=== PATIENT | female | born 1970 | race Caucasian/White ===

== ENCOUNTER → 2019-07-07 10:20 | Outpatient (BNVA) | payer MEDICAID, SELFPAY | PROVIDERS: Family Provider Internal Medicine; PCP Internal Medicine; Visit Provider Specialist | DX: G43.011 Migraine without aura, intractable, with status migrainosus (principal) | CPT/HCPCS: 99213 ==

== ENCOUNTER → 2019-07-24 11:06 | Outpatient (BNVA) | payer MEDICAID, SELFPAY | PROVIDERS: Family Provider Internal Medicine; PCP Internal Medicine; Visit Provider Nurse Practitioner | DX: F33.2 Major depressive disorder, recurrent severe without psychotic features (principal); F42.4 Excoriation (skin-picking) disorder | CPT/HCPCS: 99214 ==

== ENCOUNTER 2019-07-31 11:47 | Outpatient (CLI) | payer MEDICAID, SELFPAY ==
--- NOTE | 2019-07-31 11:55 | XR_ITS ---
WS: [id number] AP and lateral soft tissue view of the neck, 07/31/2019 Clinical Data: DYSPHAGIA, NECK PAIN Comparison: None. Findings: No radiopaque foreign bodies are seen. No prevertebral soft tissue swelling is noted. The epiglottis and pharynx appear to be normal. The thyroid cartilage and cricoid cartilage are normal. The lung api yash and AP soft tissue views of the neck are normal. XR/XR soft tissue neck [id number] Impression: Negative for radiopaque foreign body in the pharynx, trachea or proximal esopha tram.
== END 2019-07-31 11:48 | disposition home or self-care (01) ==
PROVIDERS: Family Provider Internal Medicine; PCP Internal Medicine; Visit Provider Nurse Practitioner Family
DX: M45.2 Ankylosing spondylitis of cervical region (principal); R13.10 Dysphagia, unspecified
CPT/HCPCS: 70360

== ENCOUNTER 2019-08-04 11:50 | Outpatient (CLI) | payer MEDICAID, SELFPAY | END 2019-08-04 11:51 | disposition home or self-care (01) | LOC: LAB 11:55 | PROVIDERS: Family Provider Internal Medicine; PCP Internal Medicine; Visit Provider Nurse Practitioner Primary Care | DX: Z76.89 Persons encountering health services in other specified circumstances (principal) ==

== ENCOUNTER 2019-08-18 14:10 | Outpatient (CLI) | payer MEDICAID, SELFPAY ==
--- NOTE | 2019-08-18 14:23 | XR_ITS ---
WS: [id number] RIGHT TIBIA-FIBULA 2 VIEWS HISTORY: PAIN, POSSIBLE FOREIGN BODY, STICK TO LEG INJURY COMPARISON: None available. No fracture, dislocation or joint abnormality. No radiopaque foreign body. XR/XR tibia fibula RT 2V [id number] IMPRESSION: Normal RIGHT tibia-fibula. No foreign body.
== END 2019-08-18 14:11 | disposition home or self-care (01) ==
LOC: RADWPI 14:13
PROVIDERS: Family Provider Internal Medicine; PCP Internal Medicine; Visit Provider Internal Medicine
DX: M79.661 Pain in right lower leg (principal)
CPT/HCPCS: 73590

== ENCOUNTER 2019-08-24 13:59 | Outpatient (CLI) | payer MEDICAID, SELFPAY ==
--- NOTE | 2019-08-24 14:15 | US_ITS ---
WS: [id number] Soft tissue ultrasound of both feet, 08/24/2019 Clinical Data: bilateral foot Comparison: None. Findings: Both feet were imaged to evaluate for possible Santiago's neuroma. Only normal subcutaneous tissue coul d be seen. There were no cysts or masses. No evidence of Santiago's neuroma was seen on either foot. US/US soft tissue/extremity [id number] Impression: Normal subcutaneous ultrasound of both feet with no evidence of Santiago's neurom a.
== END 2019-08-24 14:00 | disposition home or self-care (01) ==
PROVIDERS: Family Provider Internal Medicine; PCP Internal Medicine; Visit Provider Podiatrist Foot & Ankle Surgery
DX: G57.62 Lesion of plantar nerve, left lower limb (principal); G57.61 Lesion of plantar nerve, right lower limb
CPT/HCPCS: 76882

== ENCOUNTER → 2019-08-26 10:39 | Outpatient (BNVA) | payer MEDICAID, SELFPAY | PROVIDERS: Family Provider Internal Medicine; PCP Internal Medicine; Referring Provider Nurse Practitioner Family; Visit Provider Specialist | DX: M25.551 Pain in right hip (principal); G89.29 Other chronic pain | CPT/HCPCS: 73502 ==

== ENCOUNTER 2019-10-06 12:41 | Outpatient (CLI) | payer MEDICAID, SELFPAY | END 2019-10-06 12:42 | LOC: RADWPI 15:16 | PROVIDERS: Family Provider Internal Medicine; PCP Internal Medicine; Visit Provider Anesthesiology Pain Medicine | DX: M25.551 Pain in right hip (principal); M53.3 Sacrococcygeal disorders, not elsewhere classified; M54.9 Dorsalgia, unspecified; Z79.899 Other long term (current) drug therapy | CPT/HCPCS: 11042; 99204; 99205 ==

== ENCOUNTER → 2019-10-16 08:47 | Outpatient (BNVA) | payer MEDICAID, SELFPAY | PROVIDERS: Family Provider Internal Medicine; PCP Internal Medicine; Visit Provider Nurse Practitioner | DX: F33.2 Major depressive disorder, recurrent severe without psychotic features (principal) | CPT/HCPCS: 99213 ==

== ENCOUNTER 2019-10-16 13:29 | Outpatient (RCR) | payer MEDICAID, SELFPAY | END 2019-10-22 23:59 | disposition home or self-care (01) | LOC: WOUND 13:29 | PROVIDERS: Family Provider Internal Medicine; PCP Internal Medicine; Visit Provider Surgery | DX: I96 Gangrene, not elsewhere classified (principal); L02.415 Cutaneous abscess of right lower limb | CPT/HCPCS: 10060; 11042; 88304; 97605; 99203; G0463 ==

== ENCOUNTER 2019-10-23 13:49 | Outpatient (CLI) | payer MEDICAID, SELFPAY | END 2019-10-23 13:50 | disposition home or self-care (01) | LOC: WOUND 10-26 13:35 | PROVIDERS: Family Provider Internal Medicine; PCP Internal Medicine; Visit Provider Surgery | DX: I96 Gangrene, not elsewhere classified (principal); L02.415 Cutaneous abscess of right lower limb | CPT/HCPCS: 11042 ==

== ENCOUNTER 2019-10-30 14:17 | Outpatient (CLI) | payer MEDICAID, SELFPAY | END 2019-10-30 14:18 | disposition home or self-care (01) | LOC: WOUND 14:18 | PROVIDERS: Family Provider Internal Medicine; PCP Internal Medicine; Visit Provider Surgery | DX: Z09 Encounter for follow-up examination after completed treatment for conditions other than malignant neoplasm (principal) | CPT/HCPCS: 99212 ==

== ENCOUNTER → 2019-11-19 08:35 | Outpatient (BNVA) | payer MEDICAID, SELFPAY | PROVIDERS: Family Provider Internal Medicine; PCP Internal Medicine; Visit Provider Anesthesiology Pain Medicine | DX: M54.9 Dorsalgia, unspecified (principal); M53.3 Sacrococcygeal disorders, not elsewhere classified; M25.551 Pain in right hip | CPT/HCPCS: 99213 ==

== ENCOUNTER → 2019-11-25 13:51 | Outpatient (BNVA) | payer MEDICAID, SELFPAY | PROVIDERS: Family Provider Internal Medicine; PCP Internal Medicine; Visit Provider Anesthesiology Pain Medicine | DX: M53.3 Sacrococcygeal disorders, not elsewhere classified (principal); M54.9 Dorsalgia, unspecified | CPT/HCPCS: G0260; J1030; J2001; J3490 ==

== ENCOUNTER 2019-12-02 12:25 | Outpatient (CLI) | payer MEDICAID, SELFPAY ==
--- NOTE | 2019-12-02 12:00 | XR_ITS ---
WS: [id number] KUB, 12/02/2019 Clinical Data: Stone Comparison: KUB, 06/11/2018. Findings: No abnormal intraabdominal masses or calcifications are seen. There is no dilatated small bowel or ev idence of obstruction. Clips in the right upper quadrant from a cholecystectomy. There are phleboliths in the pelvis. There is a moderate amount of fecal material in the distal colon. XR/XR KUB [id number] Impression: Negative KUB.
== END 2019-12-02 12:26 | disposition home or self-care (01) ==
LOC: RAD 12:28
PROVIDERS: PCP Internal Medicine; Visit Provider Urology
DX: N20.0 Calculus of kidney (principal)
CPT/HCPCS: 74018; 81001

== ENCOUNTER → 2019-12-09 09:04 | Outpatient (BNVA) | payer MEDICAID, SELFPAY | PROVIDERS: PCP Internal Medicine; Visit Provider Anesthesiology Pain Medicine | DX: G89.29 Other chronic pain (principal); M54.9 Dorsalgia, unspecified; M53.3 Sacrococcygeal disorders, not elsewhere classified; M25.551 Pain in right hip; G43.909 Migraine, unspecified, not intractable, without status migrainosus | CPT/HCPCS: 99214; G0463 ==

== ENCOUNTER → 2019-12-15 10:38 | Outpatient (BNVA) | payer MEDICAID, SELFPAY | PROVIDERS: PCP Internal Medicine; Visit Provider Specialist | DX: G43.909 Migraine, unspecified, not intractable, without status migrainosus (principal); G43.711 Chronic migraine without aura, intractable, with status migrainosus | CPT/HCPCS: 99213 ==

== ENCOUNTER → 2019-12-16 13:24 | Outpatient (BNVA) | payer MEDICAID, SELFPAY | PROVIDERS: PCP Internal Medicine; Visit Provider Anesthesiology Pain Medicine | DX: M47.816 Spondylosis without myelopathy or radiculopathy, lumbar region (principal); M53.3 Sacrococcygeal disorders, not elsewhere classified | CPT/HCPCS: 64493; 64494; 64495; J2001; J3490 ==

== ENCOUNTER → 2019-12-28 08:55 | Outpatient (BNVA) | payer MEDICAID, SELFPAY | PROVIDERS: PCP Internal Medicine; Visit Provider Anesthesiology Pain Medicine | DX: G89.29 Other chronic pain (principal); M47.816 Spondylosis without myelopathy or radiculopathy, lumbar region; M54.9 Dorsalgia, unspecified; M53.3 Sacrococcygeal disorders, not elsewhere classified; M25.551 Pain in right hip | CPT/HCPCS: 99213 ==

== ENCOUNTER 2020-02-03 06:00 | Outpatient (RCR) | payer MEDICAID, SELFPAY | END 2020-02-22 23:59 | disposition home or self-care (01) | LOC: APT 06:00 | PROVIDERS: PCP Internal Medicine; Referring Provider Anesthesiology Pain Medicine; Visit Provider Anesthesiology Pain Medicine | DX: G89.29 Other chronic pain (principal); M47.816 Spondylosis without myelopathy or radiculopathy, lumbar region | CPT/HCPCS: 97110; 97163 ==

== ENCOUNTER 2020-02-23 06:00 | Outpatient (RCR) | payer MEDICAID, SELFPAY | END 2020-03-23 23:59 | disposition home or self-care (01) | LOC: APT 06:00 | PROVIDERS: PCP Internal Medicine; Referring Provider Anesthesiology Pain Medicine; Visit Provider Anesthesiology Pain Medicine | DX: G89.29 Other chronic pain (principal); M47.816 Spondylosis without myelopathy or radiculopathy, lumbar region | CPT/HCPCS: 97110 ==

== ENCOUNTER → 2020-02-26 07:37 | Outpatient (BNVA) | payer MEDICAID, SELFPAY | PROVIDERS: PCP Internal Medicine; Visit Provider Nurse Practitioner | DX: F33.2 Major depressive disorder, recurrent severe without psychotic features (principal) | CPT/HCPCS: 99213 ==

== ENCOUNTER → 2020-03-10 13:25 | Outpatient (BNVA) | payer MEDICAID, SELFPAY | PROVIDERS: PCP Internal Medicine; Visit Provider Anesthesiology Pain Medicine | DX: G89.29 Other chronic pain (principal); M54.41 Lumbago with sciatica, right side; M47.816 Spondylosis without myelopathy or radiculopathy, lumbar region; M25.551 Pain in right hip; M53.3 Sacrococcygeal disorders, not elsewhere classified; M54.9 Dorsalgia, unspecified | CPT/HCPCS: 99214 ==

== ENCOUNTER → 2020-03-25 08:31 | Outpatient (BNVA) | payer MEDICAID, SELFPAY | PROVIDERS: PCP Internal Medicine; Visit Provider Anesthesiology Pain Medicine | DX: G89.29 Other chronic pain (principal); M54.41 Lumbago with sciatica, right side; M47.816 Spondylosis without myelopathy or radiculopathy, lumbar region; M53.3 Sacrococcygeal disorders, not elsewhere classified; M25.551 Pain in right hip; M54.9 Dorsalgia, unspecified | CPT/HCPCS: 99213 ==

== ENCOUNTER → 2020-03-28 14:13 | Outpatient (BNVA) | payer MEDICAID, SELFPAY | PROVIDERS: PCP Internal Medicine; Visit Provider Podiatrist Foot & Ankle Surgery | DX: S90.121A Contusion of right lesser toe(s) without damage to nail, initial encounter (principal); X58.XXXA Exposure to other specified factors, initial encounter | CPT/HCPCS: 73630 ==

== ENCOUNTER → 2020-04-28 14:27 | Outpatient (BNVA) | payer MEDICAID, SELFPAY | PROVIDERS: PCP Internal Medicine; Visit Provider Anesthesiology Pain Medicine | DX: G89.29 Other chronic pain (principal); M79.18 Myalgia, other site; M53.3 Sacrococcygeal disorders, not elsewhere classified; M25.551 Pain in right hip; M47.816 Spondylosis without myelopathy or radiculopathy, lumbar region; M54.9 Dorsalgia, unspecified | CPT/HCPCS: 20553; 99213; J1030; J3490 ==

== ENCOUNTER 2020-05-12 13:09 | Outpatient (CLI) | payer MEDICAID, SELFPAY ==
--- NOTE | 2020-05-12 13:13 | MM_ITS ---
WS: [id number] BILATERAL SCREENING DIGITAL MAMMOGRAM WITH CAD HISTORY: SCREENING COMPARISON: 05/05/2019 and 03/26/2018 Bilateral CC and MLO views submitted. Computer aided detection analyzed. Breast composition: There are scattered areas of fibroglandular density. No suspicious masses, microc alcifications or architectural distortion. Benign calcifications in each breast. MM/[place] [id number] IMPRESSION: BI-RADS: 2-Benign FOLLOW UP: 1 Year Follow-up
== END 2020-05-12 13:10 | disposition home or self-care (01) ==
LOC: RADSHAW 13:11
PROVIDERS: PCP Internal Medicine; Visit Provider Internal Medicine
DX: Z12.31 Encounter for screening mammogram for malignant neoplasm of breast (principal)
CPT/HCPCS: 77067

== ENCOUNTER → 2020-05-26 14:26 | Outpatient (BNVA) | payer MEDICAID, SELFPAY | PROVIDERS: PCP Internal Medicine; Visit Provider Anesthesiology Pain Medicine | DX: G89.29 Other chronic pain (principal); M47.816 Spondylosis without myelopathy or radiculopathy, lumbar region; M53.3 Sacrococcygeal disorders, not elsewhere classified; M54.9 Dorsalgia, unspecified; M25.551 Pain in right hip | CPT/HCPCS: 99213 ==

== ENCOUNTER → 2020-06-02 08:18 | Outpatient (BNVA) | payer MEDICAID, SELFPAY | PROVIDERS: PCP Internal Medicine; Visit Provider Nurse Practitioner | DX: F33.2 Major depressive disorder, recurrent severe without psychotic features (principal) | CPT/HCPCS: 99213 ==

== ENCOUNTER → 2020-06-21 13:52 | Outpatient (BNVA) | payer MEDICAID, SELFPAY | PROVIDERS: PCP Internal Medicine; Visit Provider Anesthesiology Pain Medicine | DX: G89.29 Other chronic pain (principal); M79.18 Myalgia, other site; M53.3 Sacrococcygeal disorders, not elsewhere classified; M25.551 Pain in right hip; M47.816 Spondylosis without myelopathy or radiculopathy, lumbar region; M54.9 Dorsalgia, unspecified; L60.3 Nail dystrophy; E11.42 Type 2 diabetes mellitus with diabetic polyneuropathy; M21.621 Bunionette of right foot; M21.622 Bunionette of left foot; M20.41 Other hammer toe(s) (acquired), right foot; M20.42 Other hammer toe(s) (acquired), left foot; M21.41 Flat foot [pes planus] (acquired), right foot; M21.42 Flat foot [pes planus] (acquired), left foot | CPT/HCPCS: 20553; 73630; 99213; J1030; J3490 ==

== ENCOUNTER → 2020-06-23 09:30 | Outpatient (BNVA) | payer MEDICAID, SELFPAY | PROVIDERS: PCP Internal Medicine; Visit Provider Internal Medicine | DX: E11.65 Type 2 diabetes mellitus with hyperglycemia (principal); I10 Essential (primary) hypertension | CPT/HCPCS: 80053; 82043; 83036; 85025 ==

== ENCOUNTER 2020-07-19 14:08 | Outpatient (CLI) | payer MEDICAID, SELFPAY ==
[2020-07-19 15:06] LABS: Creatinine Urine, Random 168 mg/dL (28-217)
[2020-07-19 15:09] LABS: Microalbum Creatinine Ratio Ur 6 mg/dL (0-20); Microalbumin Random Urine < 1 ug/dL (0-20)
[2020-07-19 15:21] LABS: Estmated Average Glucose 157; Hemoglobin A1C 7.1 % (4.0-6.0)
[2020-07-19 15:34] LABS: Anion Gap 13.8 (5-19); Blood Urea Nitrogen 12 mg/dL (6-20); Calcium 9.6 mg/dL (8.5-10.5); Carbon Dioxide 31 mmol/L (22-29); Chloride 98 mmol/L (98-107); Chol HDL Ratio 6.47 mg/dL (0.0-4.40); Cholesterol 220 mg/dL (0-200); Free T4 Free Thyroxine 1.04 ng/dL (0.82-1.77); Glomerular Filtration Rate 59.2 mL/min (90-130); HDL Cholesterol 34 mg/dL (60-100); Potassium 3.8 mmol/L (3.5-5.1); Sodium 139 mmol/L (136-145); Thyroid Stimulating Hormone 0.98 uIU/mL (0.27-4.20); Triglycerides 411 mg/dL (0-150)
[2020-07-19 15:53] LABS: Glucose 162 mg/dL (65-115); Osmolality Calculated 291 mOsm/kg (285-295)
[2020-07-19 17:14] LABS: LDL Cholesterol Direct 137 mg/dL (0-100)
== END 2020-07-19 14:09 | disposition home or self-care (01) ==
LOC: LAB 14:11
PROVIDERS: PCP Internal Medicine; Visit Provider Physician Assistant Medical
DX: E11.65 Type 2 diabetes mellitus with hyperglycemia (principal); M81.0 Age-related osteoporosis without current pathological fracture; E78.2 Mixed hyperlipidemia; R79.89 Other specified abnormal findings of blood chemistry; E03.9 Hypothyroidism, unspecified
CPT/HCPCS: 80048; 80061; 82044; 83036; 83721; 84439; 84443

== ENCOUNTER → 2020-08-16 11:06 | Outpatient (BNVA) | payer MEDICAID, SELFPAY | PROVIDERS: PCP Internal Medicine; Visit Provider Anesthesiology Pain Medicine | DX: G89.29 Other chronic pain (principal); M54.41 Lumbago with sciatica, right side; M47.816 Spondylosis without myelopathy or radiculopathy, lumbar region; M79.18 Myalgia, other site; M25.511 Pain in right shoulder; M25.551 Pain in right hip; M53.3 Sacrococcygeal disorders, not elsewhere classified; M54.9 Dorsalgia, unspecified | CPT/HCPCS: 20553; 99214; J1030; J3490 ==

== ENCOUNTER 2020-09-01 14:09 | Outpatient (CLI) | payer MEDICAID, SELFPAY ==
--- NOTE | 2020-09-01 14:23 | XR_ITS ---
WS: [id number] Right shoulder, 2 views, 09/01/2020 Clinical Data: M25.511 - Pain in right shoulder Comparison: None. Findings: No fractures or dislocations are seen. The AC joint is normal. The adjacent right clavicle, right sca pula and ribs are normal. The soft tissues are unremarkable. XR/XR shoulder RT min 2V* [id number] Impression: Negative right shoulder.
== END 2020-09-01 14:10 | disposition home or self-care (01) ==
LOC: RAD 14:11
PROVIDERS: PCP Internal Medicine; Visit Provider Anesthesiology Pain Medicine
DX: M25.511 Pain in right shoulder (principal)
CPT/HCPCS: 73030

== ENCOUNTER → 2020-09-08 08:35 | Outpatient (BNVA) | payer MEDICAID, SELFPAY | PROVIDERS: PCP Internal Medicine; Visit Provider Anesthesiology Pain Medicine | DX: G89.29 Other chronic pain (principal); M47.816 Spondylosis without myelopathy or radiculopathy, lumbar region; M53.3 Sacrococcygeal disorders, not elsewhere classified; M54.9 Dorsalgia, unspecified; M54.12 Radiculopathy, cervical region; M25.511 Pain in right shoulder; M25.551 Pain in right hip; M79.18 Myalgia, other site | CPT/HCPCS: 99215 ==

== ENCOUNTER → 2020-09-15 07:56 | Outpatient (BNVA) | payer MEDICAID, SELFPAY | PROVIDERS: PCP Internal Medicine; Visit Provider Nurse Practitioner | DX: F33.2 Major depressive disorder, recurrent severe without psychotic features (principal) | CPT/HCPCS: 99214 ==

== ENCOUNTER 2020-10-07 14:32 | Outpatient (CLI) | payer MEDICAID, SELFPAY ==
--- NOTE | 2020-10-07 14:39 | XR_ITS ---
WS: [id number] Lateral views of cervical spine in the flexion, extension and neutral positions. 10/07/2020 Clinical Data: M54.12 - Radiculopathy, cervical region Comparison: AP and lateral soft tissue view of the neck, 07/31/2019. Findings: There is no prevertebral soft tissue swelling. No compression fractures are seen. On flexion and exte nsion there is no limitation of motion or subluxation. XR/XR cervical spine fl/ex [id number] Impression: Negative for limitation of motion or subluxation on flexion or extension.
== END 2020-10-07 14:33 | disposition home or self-care (01) ==
PROVIDERS: PCP Internal Medicine; Visit Provider Anesthesiology Pain Medicine
DX: M54.12 Radiculopathy, cervical region (principal)
CPT/HCPCS: 72040

== ENCOUNTER → 2020-10-11 10:09 | Outpatient (BNVA) | payer MEDICAID, SELFPAY | PROVIDERS: PCP Internal Medicine; Visit Provider Anesthesiology Pain Medicine | DX: G89.29 Other chronic pain (principal); M79.18 Myalgia, other site; M53.3 Sacrococcygeal disorders, not elsewhere classified; M25.551 Pain in right hip; M54.9 Dorsalgia, unspecified; M47.816 Spondylosis without myelopathy or radiculopathy, lumbar region; M54.12 Radiculopathy, cervical region; M25.511 Pain in right shoulder | CPT/HCPCS: 20553; 99214; J1030; J3490 ==

== ENCOUNTER → 2020-10-19 09:38 | Outpatient (BNVA) | payer MEDICAID, SELFPAY | PROVIDERS: PCP Internal Medicine; Referring Provider Anesthesiology Pain Medicine; Visit Provider Specialist | DX: M25.511 Pain in right shoulder (principal) | CPT/HCPCS: 73030 ==

== ENCOUNTER 2020-10-26 10:56 | Outpatient (CLI) | payer MEDICAID, SELFPAY ==
--- NOTE | 2020-10-26 11:10 | MR_ITS ---
WS: [id number] MRI RIGHT SHOULDER HISTORY: PAIN IN UNSPECIFIED SHOULDER COMPARISON: RIGHT shoulder radiograph 10/19/2020 TECHNIQUE: Multiplanar sequences of the shoulder joint are submitted. Mild AC joint arthritis. Mild soft tissue and bone hypertrophy. Minimal encroachment and deformity of the supraspinatus. No os acromion. Biceps tendon is in normal position. No marrow edema or fracture. Very small subchondral lesion in the medial humeral head. No labral tear at L5. There is a rotator cuff tear involving the distal supraspinatus tendon. The tear extends to the bursa l surface. This is a near complete tear but a few fibers along the articular surface are still identi fied. There is also associated increased signal and thickening of the supraspinatus tendon. Moderate subdeltoid bursal fluid. No muscle retraction or atrophy. The remaining tendons are intact. MR/MR shoulder RT wo con* [id number] IMPRESSION: 1. Partial bursal surface tear distal supraspinatus tendon with additional adj acent tendinopathy. 2. No muscle atrophy or retraction. 3. Mild AC joint arthritis with minimal encroachment upon the supraspinatus mu scle. 4. Moderate subdeltoid bursal fluid.
== END 2020-10-26 10:57 | disposition home or self-care (01) ==
PROVIDERS: PCP Internal Medicine; Visit Provider Specialist
DX: M75.101 Unspecified rotator cuff tear or rupture of right shoulder, not specified as traumatic (principal); M13.811 Other specified arthritis, right shoulder
CPT/HCPCS: 73221

== ENCOUNTER → 2020-11-15 09:04 | Outpatient (BNVA) | payer MEDICAID, SELFPAY | PROVIDERS: PCP Internal Medicine; Visit Provider Anesthesiology Pain Medicine | DX: G89.29 Other chronic pain (principal); M54.12 Radiculopathy, cervical region; M79.18 Myalgia, other site; M53.3 Sacrococcygeal disorders, not elsewhere classified; M25.551 Pain in right hip; M25.552 Pain in left hip; M54.9 Dorsalgia, unspecified; M47.816 Spondylosis without myelopathy or radiculopathy, lumbar region; M25.511 Pain in right shoulder | CPT/HCPCS: 20553; 99214; J1030; J3490 ==

== ENCOUNTER 2020-12-01 09:09 | Outpatient (CLI) | payer MEDICAID, SELFPAY ==
--- NOTE | 2020-12-01 10:15 | XR_ITS ---
WS: [id number] KUB, AP view, 12/01/2020 Clinical Data: N20.0 - Calculus of kidney Comparison: KUB, 12/02/2019. Findings: No abnormal intraabdominal masses or calcifications are seen. There is no dilatated small bowel or ev idence of obstruction. There is fecal material throughout the colon. There are clips in the right upper quadrant from a chol ecystectomy. There are phleboliths in the true pelvis. XR/XR KUB [id number] Impression: Negative KUB.
== END 2020-12-01 09:10 | disposition home or self-care (01) ==
LOC: RAD 09:12
PROVIDERS: PCP Internal Medicine; Visit Provider Urology
DX: N20.0 Calculus of kidney (principal)
CPT/HCPCS: 74018; 81003; 87086

== ENCOUNTER 2020-12-14 06:00 | Outpatient (RCR) | payer MEDICAID, SELFPAY | END 2020-12-21 23:59 | disposition home or self-care (01) | LOC: APT 06:00 | PROVIDERS: PCP Internal Medicine; Referring Provider Specialist; Visit Provider Specialist | DX: M54.2 Cervicalgia (principal); G89.29 Other chronic pain | CPT/HCPCS: 97110; 97163 ==

== ENCOUNTER → 2020-12-20 07:36 | Outpatient (BNVA) | payer MEDICAID, SELFPAY | PROVIDERS: PCP Internal Medicine; Visit Provider Nurse Practitioner | DX: F33.2 Major depressive disorder, recurrent severe without psychotic features (principal); G89.29 Other chronic pain; M79.18 Myalgia, other site; M25.551 Pain in right hip; M53.3 Sacrococcygeal disorders, not elsewhere classified; M54.9 Dorsalgia, unspecified; M47.816 Spondylosis without myelopathy or radiculopathy, lumbar region; M25.511 Pain in right shoulder; M54.12 Radiculopathy, cervical region | CPT/HCPCS: 20553; 99214; J1030; J3490 ==

== ENCOUNTER 2020-12-22 06:00 | Outpatient (RCR) | payer MEDICAID, SELFPAY | END 2021-01-21 23:59 | disposition home or self-care (01) | LOC: APT 06:00 | PROVIDERS: PCP Internal Medicine; Referring Provider Specialist; Visit Provider Specialist | DX: M54.2 Cervicalgia (principal); G89.29 Other chronic pain | CPT/HCPCS: 97110 ==

== ENCOUNTER → 2021-01-03 14:45 | Outpatient (BNVA) | payer MEDICAID, SELFPAY | PROVIDERS: PCP Internal Medicine; Visit Provider Orthopaedic Surgery | DX: M54.2 Cervicalgia (principal) | CPT/HCPCS: 72040 ==

== ENCOUNTER → 2021-01-12 14:23 | Outpatient (BNVA) | payer MEDICAID, SELFPAY | PROVIDERS: PCP Internal Medicine; Visit Provider Specialist | DX: G43.709 Chronic migraine without aura, not intractable, without status migrainosus (principal); M54.12 Radiculopathy, cervical region | CPT/HCPCS: 99214 ==

== ENCOUNTER 2021-01-22 06:00 | Outpatient (RCR) | payer MEDICAID, SELFPAY | END 2021-02-21 23:59 | disposition home or self-care (01) | LOC: APT 06:00 | PROVIDERS: PCP Internal Medicine; Referring Provider Specialist; Visit Provider Specialist | DX: M54.2 Cervicalgia (principal); G89.29 Other chronic pain | CPT/HCPCS: 97110 ==

== ENCOUNTER → 2021-02-02 09:40 | Outpatient (BNVA) | payer MEDICAID, SELFPAY | PROVIDERS: PCP Internal Medicine; Visit Provider Internal Medicine | DX: E78.5 Hyperlipidemia, unspecified (principal); Z68.42 Body mass index [BMI] 45.0-49.9, adult; E11.42 Type 2 diabetes mellitus with diabetic polyneuropathy | CPT/HCPCS: 80053; 80061; 82043; 83036; 85025 ==

== ENCOUNTER → 2021-02-07 10:14 | Outpatient (BNVA) | payer MEDICAID, SELFPAY | PROVIDERS: PCP Internal Medicine; Visit Provider Nurse Practitioner Family | DX: R33.9 Retention of urine, unspecified (principal); N30.90 Cystitis, unspecified without hematuria; B37.3 Candidiasis of vulva and vagina | CPT/HCPCS: 81003 ==

== ENCOUNTER → 2021-02-15 09:02 | Outpatient (BNVA) | payer MEDICAID, SELFPAY | PROVIDERS: PCP Internal Medicine; Visit Provider Anesthesiology Pain Medicine | DX: M79.18 Myalgia, other site (principal); G89.29 Other chronic pain; M47.816 Spondylosis without myelopathy or radiculopathy, lumbar region; M54.12 Radiculopathy, cervical region; M25.511 Pain in right shoulder; M25.551 Pain in right hip; M53.3 Sacrococcygeal disorders, not elsewhere classified | CPT/HCPCS: 20553; 99213; J1030; J3490 ==

== ENCOUNTER → 2021-03-15 10:52 | Outpatient (BNVA) | payer OTHER, MEDICAID, SELFPAY | PROVIDERS: PCP Internal Medicine; Visit Provider Nurse Practitioner | DX: F33.2 Major depressive disorder, recurrent severe without psychotic features (principal) | CPT/HCPCS: 99214 ==

== ENCOUNTER → 2021-03-20 15:13 | Outpatient (BNVA) | payer MEDICAID, SELFPAY | PROVIDERS: PCP Internal Medicine; Visit Provider Specialist | DX: G56.03 Carpal tunnel syndrome, bilateral upper limbs (principal); G56.22 Lesion of ulnar nerve, left upper limb | CPT/HCPCS: 95910 ==

== ENCOUNTER → 2021-03-28 08:14 | Outpatient (BNVA) | payer MEDICAID, SELFPAY | PROVIDERS: PCP Internal Medicine; Visit Provider Specialist | DX: M79.601 Pain in right arm (principal); R20.0 Anesthesia of skin; G56.03 Carpal tunnel syndrome, bilateral upper limbs; M54.2 Cervicalgia | CPT/HCPCS: 95861; 99213 ==

== ENCOUNTER → 2021-04-19 10:33 | Outpatient (BNVA) | payer MEDICAID, SELFPAY | PROVIDERS: PCP Internal Medicine; Visit Provider Anesthesiology Pain Medicine | DX: G89.29 Other chronic pain (principal); M79.18 Myalgia, other site; M25.551 Pain in right hip; M53.3 Sacrococcygeal disorders, not elsewhere classified; M47.816 Spondylosis without myelopathy or radiculopathy, lumbar region; M25.511 Pain in right shoulder; M54.12 Radiculopathy, cervical region | CPT/HCPCS: 20553; 99213; J1030; J3490 ==

== ENCOUNTER 2021-06-03 06:42 | Inpatient (IN) | payer MEDICAID, SELFPAY ==
[2021-06-03] VITALS (40 sets, daily range): BP systolic 60–154; BP diastolic 35–94; PULSE 90–124; RESP 11–29; TEMP 36.9–39.5; O2SAT 18–100; BMI 48.1
--- NOTE | 2021-06-03 06:45 | ECG_ITS ---
[facility] Test Date: 2021-06-03 Pat Name: Santiago Arndt Department: Room: Gender: Female Baggage Porter: : 1970 Requested By: Abel Garrett Order Number: [id number] Sergio MD: Reynaldo Freeman M.D. Measurements Intervals [place] Rate: 95 P: 37 VA: 153 QRS: 27 QRSD: 93 T: 12 QT: 358 QTc: 451 Interpretive Statements SINUS RHYTHM No previous ECG available for comparison Electronically Signed On 06-03-2021 7:34:20 FISH SMOKER by Reynaldo Freeman M.D. [id number]
--- NOTE | 2021-06-03 07:10 | USR_ITS ---
PROCEDURE INFORMATION: Exam: US Duplex Left Lower Extremity Veins, Limited Exam date and time: 06/03/2021 7:10 AM Age: 50 years old Clinical indication: Pain; Swelling (edema) of limb; Lower extremity, left; Leg, lower; Additional info: Swelling/pain TECHNIQUE: Imaging protocol: Real-time Duplex ultrasound of the Left Lower Extremity with 2-D hernandez scale, color Doppler flow and spectral waveform analysis with image documentation. Limited exam focused on the left lower extremity veins. COMPARISON: US soft tissue/extremity [id number] 08/24/2019 2:28 PM FINDINGS: Left deep veins: Unremarkable. The common femoral, femoral, proximal profunda femoral, popliteal, and visualized calf veins are patent without thrombus. Normal Doppler waveforms. Normal compressibility and/or augmentation response. Left superficial veins: Unremarkable. Saphenofemoral junction is patent without thrombus. Soft tissues: Unremarkable. US/[place] [id number] IMPRESSION: No evidence of left lower extremity deep vein thrombosis.
--- NOTE | 2021-06-03 07:10 | XRR_ITS ---
PROCEDURE INFORMATION: Exam: XR Chest Exam date and time: 06/03/2021 7:10 AM Age: 50 years old Clinical indication: Cough and dyspnea; Additional info: Dyspnea/cough TECHNIQUE: Imaging protocol: XR of the chest. Views: 1 view. COMPARISON: CR Chest 2 views* [id number] 08/03/2017 9:19 AM FINDINGS: Lungs: Unremarkable. No consolidation. Pleural spaces: Unremarkable. No pleural effusion. No pneumothorax. Heart/Mediastinum: Unremarkable. No cardiomegaly. Bones/joints: Unremarkable. XR/XR chest 1V portable [id number] IMPRESSION: No acute findings.
[2021-06-03 07:11] LABS: Basophils # 0.1 10^3/uL (0.0-0.1); Basophils % 0.6 %; Eosinophils % 0.1 %; Hematocrit 38.6 % (37.0-47.0); Hemoglobin 11.8 g/dL (11.5-15.3); Lymphocytes # 0.5 10^3/uL (0.8-4.8); Lymphocytes % 3.3 %; Mean Corpuscular HGB Conc 30.6 g/dL (30.0-36.0); Mean Corpuscular Hemoglobin 25.1 pg (28.0-34.0); Mean Platelet Volume 9.9 fL (7.4-10.4); Monocytes # 0.4 10^3/uL (0.2-0.9); Monocytes % 2.4 %; Neutrophils # 14.35 10^3/uL (1.8-7.7); Neutrophils % 92.7 %; Nucleated Red Blood Cells % 0 %; Platelet Count 223 10^3/cmm (130-400); Red Blood Count 4.71 10^6/uL (4.1-5.3); Red Cell Distribution Width 15.3 % (12.1-15.1); White Blood Count 15.5 10^3/uL (4.0-10.0)
[2021-06-03] MEDS: vancomycin 1,000 MG in sodium chloride 0.9% 250 ML 250 MG IV (07:15)
[2021-06-03 07:23] LABS: ABG PCO2 29.9 mmHg (35-45); Base Excess ABG 0.9 mmol/L (-2.0-2.0); Blood Gas Allen Test Pos; Blood Gas Operator Identificat CAK; Blood Gas Sample Site Radial, left; Blood Gas Sample Type Arterial; Carboxyhemoglobin 0.6 %THgb (0.4-20.1); HCO3 ABG 23.5 mmol/L (22-26); HGB O2 Sat 96.7 % (95-100); Ionized Calcium Level - ABG 1.1 mmol/L (1.1-1.4); Methemoglobin 0.5 % (0.4-1.5); Oxygen Device ROOM AIR; Oxygen Saturation ABG 97.8; Potassium Level - ABG 3.7 mmol/L (3.5-5.0); Total Hemoglobin 11.1 g/dL (12-16)
[2021-06-03 07:23] LABS: Ketone (Acetest) Serum Negative (Negative)
[2021-06-03 07:28] LABS: Troponin(5th) Baseline 6 ng/L (0-10)
--- NOTE | 2021-06-03 07:28 | PC.NURSE ---
NOTFIED DR. ALANIZ OF DELINQUENT NOTICE MACHINE OPERATOR OF VERBALIZED. VO FOR FLUID BOLUS'S AND STATED HE WOULD PLACE ORDER FOR LEVOPHED.
--- NOTE | 2021-06-03 07:28 | PC.NURSE ---
pt is placed on continuous spo2, nibp, and cm monitoring.
[2021-06-03 07:29] LABS: Lactic Sepsis W/Reflex 2.2 mmol/L (0.5-2.2)
[2021-06-03 07:30] LABS: Alanine Aminotransferase 14 U/L (0-33); Albumin Level 3.3 g/dL (3.5-5.2); Alkaline Phosphatase 94 IU/L (35-105); Anion Gap 16.7 (5-19); Aspartate Amino Transferase 15 U/L (0-32); Blood Urea Nitrogen 13 mg/dL (6-20); Calcium 7.3 mg/dL (8.5-10.5); Carbon Dioxide 24 mmol/L (22-29); Chloride 95 mmol/L (98-107); Globulin 2.2 g/dL (1.3-4.6); Glucose 268 mg/dL (65-115); Lipase 37 U/L (13-60); Magnesium 1.3 mg/dL (1.7-2.3); Osmolality Calculated 284 mOsm/kg (285-295); Potassium 3.7 mmol/L (3.5-5.1); Sodium 132 mmol/L (136-145); Total Bilirubin 0.6 mg/dL (0.15-1.2); Total Protein 5.5 g/dL (6.6-8.7)
[2021-06-03 07:36] LABS: Reflex Lactate Order REFLEX LACTIC ORDERD
--- NOTE | 2021-06-03 07:49 | W.ED.FEVER ---
HPI - Fever General: Chief Complaint: Fever Stated Complaint: weakness Time Seen by Provider: 06/03/21 06:42 History of Present Illness: HPI Narrative: 50-year-old female presents to the emergency room complaining of generalized weakness and not feeling well. Patient arrived via EMS. She is awake and alert she is complaining of pain and swelling to the left lower leg. Noticed the redness and swelling beginning yesterday she denies any chest pain or shortness of breath she did fall while at home discussed complaining of some hip pain, she also complains of some left knee pain. However she tells me that both of these issues are chronic they are just worse after she fell today. She mostly fell just because she was feeling weak states she felt like her legs counterpoint pulled underneath her. She denies striking her head there is no loss consciousness. She denies any shortness of breath any chest pain denies any dysuria urgency or frequency. No abdominal pain. No vomiting or diarrhea. MD elicited complaint: fever and weakness Pertinent past history: diabetes Onset (ago): hour(s) Exacerbating factors: nothing Relieving factors: nothing Associated symptoms: Reports chills, extremity pain and nausea; Deny abdominal pain, flank pain, chest pain, confusion, cough, diarrhea, dysuria, headache(s), myalgias, nasal congestion, night sweats, rash, rhinorrhea, short of breath, sinus pain, stiffness, sore throat, vaginal discharge, vomiting or weight loss Treatments prior to arrival fever: none Review of Systems Const: Reports: chills; Denies: night sweats ENMT: Denies: nasal congestion or sinus pain Card: Denies: chest pain GI: Reports: nausea; Denies: abdominal pain, vomiting or diarrhea : Denies: flank pain, dysuria or vaginal discharge Musc: Reports: extremity pain Neuro: Denies: headache(s) or confusion PFSH ED PFSH: Medical History Chronic low back pain Diabetes Dyslipidemia Excoriation (skin-picking) disorder Facet arthropathy, lumbar Hypertension Hypothyroid Incomplete bladder emptying Major depressive disorder, recurrent severe without psychotic features Melanoma Obstructive sleep apnea Opioid contract exists Psychiatric care Renal calculi Tachycardia Yeast vaginitis Surgical History H/O: hysterectomy History of appendectomy History of cholecystectomy History of tonsillectomy and adenoidectomy Hx of lumpectomy Family History Grandmother Cancer LUNG CANCER Diabetes Heart disease Bleeding disorder Clotting disorder CAD (coronary artery disease) Lung disease Dementia Grandfather Cancer PROSTATE CANCER Diabetes Chronic kidney disease (CKD) Dementia Father Diabetes Hypertension Mother Lung disease COPD Hypertension Denies family history of Suicide Anesthesia complication Stroke Social History Second hand smoke exposure: No Alcohol intake: never Lives independently: Yes Current occupational status: disabled History of recent travel: No (travels from [facility]. Has went to [facility] in past week ) Physical Exam Const: COMMON NORMALS: no acute distress GENERAL APPEARANCE: cooperative and comfortable ORIENTATION/CONSCIOUSNESS: Yes awake, Yes oriented to person, Yes oriented to place and Yes oriented to time HENMT: COMMON NORMALS: normocephalic, atraumatic and hearing grossly normal bilaterally HEAD & SCALP: normocephalic and atraumatic Resp: COMMON NORMALS: normal respiratory effort, No retractions, No use of accessory muscles and clear to auscultation bilaterally AUSCULTATION: clear to auscultation bilaterally Cardio: COMMON NORMALS: regular rate, regular rhythm and No murmurs present (Cardio) RATE: regular rate RHYTHM: regular rhythm GI: COMMON NORMALS: Soft to palpation and No hepatosplenomegaly present AUSCULTATION: Yes normoactive bowel sounds PALPATION: Yes Soft to palpation, No Tenderness to palpation present (GI), No Guarding due to palpation present (GI) and Yes No hepatosplenomegaly present Extremity: OTHER: Left lower leg is red and warm to the touch there is no significant induration there is some mild excoriation. No fluctuant areas. Does not appear to be any abscess. No real focal area of infection at this point is diffuse over the anterior left lower leg. There is some tenderness to touch including to the calf. 1+ edema bilaterally of the lower extremities. Neuro: SENSORIUM/ORIENTATION: Yes oriented to person, Yes oriented to place and Yes oriented to time Skin: COMMON NORMALS: no rashes or lesions noted GENERAL SKIN EXAM: no rashes or lesions noted Course Vital Signs: Vital signs: Vital Signs Temperature 98.4 F 06/03/21 06:46 Pulse Rate 102 H 06/03/21 06:46 Respiratory Rate 18 06/03/21 06:46 Blood Pressure 70/40 06/03/21 06:46 Pulse Oximetry 98 06/03/21 06:46 MDM - Fever MDM Narrative: Medical decision making narrative: Patient is septic presented with significant hypotension did improve with the initial portion of the fluid bolus her total fluid bolus calculates to be 4 L which I think she will require but I am uncomfortable giving all at once she was given the initial 2 L second 2 L to be scheduled over the next 4 hours. Was started on Levophed we have improved her mean arterial pressure to greater than 60 at this point. Started on vancomycin in talking with her it sounds as if her penicillin Levaquin allergies may indeed be true allergies. We will admit her to the ICU due to sepsis discussed with Dr. Marques who will be the attending there. Venous duplex lower extremity does not show any DVT. Lab Data: Labs: Lab Results 06/03/21 06/03/21 06/03/21 06:51 06:51 06:51 WBC 15.5 10^3/uL H 10 ^3/uL (4.0-10.0) Corrected WBC Sales Intern RBC 4.71 10^6/uL 10^6 /uL (4.1-5.3) Hgb 11.8 g/dL g/dL (11.5-15.3) Hct 38.6 % % (37.0-47.0) MCV 82.0 fl fl (81-99) MCH 25.1 pg L pg (28.0-34.0) MCHC 30.6 g/dL g/dL (30.0-36.0) RDW 15.3 % H % (12.1-15.1) Plt Count 223 10^3/cmm 10^3 /cmm (130-400) MPV 9.9 fL fL (7.4-10.4) Gran % Sales Intern Neut % (Auto) 92.7 % % Lymph % (Auto) 3.3 % % [place] % (Auto) 2.4 % % Eos % (Auto) 0.1 % % Baso % (Auto) 0.6 % % Neut # (Auto) 14.35 10^3/uL H 1 0^3/uL (1.8-7.7) Lymph # (Auto) 0.5 10^3/uL L 10^ 3/uL (0.8-4.8) [place] # (Auto) 0.4 10^3/uL 10^3/ uL (0.2-0.9) Eos # (Auto) 0.0 10^3/uL 10^3/ uL (0.0-0.8) Baso # (Auto) 0.1 10^3/uL 10^3/ uL (0.0-0.1) Absolute Gran (aut o) Sales Intern Nucleated RBC % (a uto) 0 % % Nucleated RBCs # 0.0 /100WBC /100W BC Specimen Type Sample Site ABG pH ABG pCO2 ABG pO2 ABG HCO3 ABG O2 Saturation ABG Base Excess Cruz Test Hematocrit Hgb O2 Saturation Carboxyhemoglobin Methemoglobin Total Hemoglobin Ionized Calcium O2 Delivery Device FiO2 Shoe Associate ID Sodium 132 mmol/L L mmol /L (136-145) Potassium 3.7 mmol/L mmol/L (3.5-5.1) Chloride 95 mmol/L L mmol/ L (98-107) Carbon Dioxide 24 mmol/L mmol/L (22-29) Anion Gap 16.7 (5-19) BUN 13 mg/dL mg/dL (6-20) Creatinine 1.4 mg/dL H mg/dL (0.5-0.9) GFR Calculation 40.0 mL/min L mL/ min (90-130) Glucose 268 mg/dL H mg/dL (65-115) Calculated Osmolal ity 284 mOsm/kg L mOs m/kg (285-295) Lactic Acid 2.2 mmol/L mmol/L (0.5-2.2) Calcium 7.3 mg/dL L mg/dL (8.5-10.5) Magnesium 1.3 mg/dL L mg/dL (1.7-2.3) Total Bilirubin 0.6 mg/dL mg/dL (0.15-1.2) AST 15 U/L U/L (0-32) ALT 14 U/L U/L (0-33) Alkaline Phosphata se 94 IU/L IU/L (35-105) Troponin T Baselin e Total Protein 5.5 g/dL L g/dL (6.6-8.7) Albumin 3.3 g/dL L g/dL (3.5-5.2) Globulin 2.2 g/dL g/dL (1.3-4.6) Lipase 37 U/L U/L (13-60) Serum Ketones 06/03/21 06/03/21 06/03/21 06:51 06:51 07:11 WBC Corrected WBC RBC Hgb Hct MCV MCH MCHC RDW Plt Count MPV Gran % Neut % (Auto) Lymph % (Auto) [place] % (Auto) Eos % (Auto) Baso % (Auto) Neut # (Auto) Lymph # (Auto) [place] # (Auto) Eos # (Auto) Baso # (Auto) Absolute Gran (aut o) Nucleated RBC % (a uto) Nucleated RBCs # Specimen Type Arterial Sample Site Radial, left ABG pH 7.50 H (7.35-7.45) ABG pCO2 29.9 mmHg L mmHg (35-45) ABG pO2 122.0 mmHg H mmHg (80.0-100.0) ABG HCO3 23.5 mmol/L mmol/ L (22-26) ABG O2 Saturation 97.8 ABG Base Excess 0.9 mmol/L mmol/L (-2.0-2.0) Cruz Test Pos Hematocrit 34.0 % L % (37-47) Hgb O2 Saturation 96.7 % % (95-100) Carboxyhemoglobin 0.6 %THgb %THgb (0.4-20.1) Methemoglobin 0.5 % % (0.4-1.5) Total Hemoglobin 11.1 g/dL L g/dL (12-16) Ionized Calcium 1.1 mmol/L mmol/L (1.1-1.4) O2 Delivery Device Room air FiO2 21.0 % % Shoe Associate ID Cak Sodium 131.0 mmol/L mmol /L (131-143) Potassium 3.7 mmol/L mmol/L (3.5-5.0) Chloride Carbon Dioxide Anion Gap BUN Creatinine GFR Calculation Glucose 281.0 mg/dL H mg/ dL (70-115) Calculated Osmolal ity Lactic Acid Calcium Magnesium Total Bilirubin AST ALT Alkaline Phosphata se Troponin T Baselin e 6 ng/L ng/L (0-10) Total Protein Albumin Globulin Lipase Serum Ketones Negative (Negative) Critical Care Time Critical Care Time: Critical Care Time: Yes Total Critical Care Time: 20 Attestation: The high probability of a clinically significant, sudden or life threatening deterioration of the patient's [] system(s) required my full and direct attention, intervention and personal management. The critical care time is as shown. This time is in addition to time spent performing any reported procedures but includes the following: [x] Data and vital sign review and interpretation [x] Patient assessment, examination and intervention [x] Documentation [x] Medication orders and management Discharge Plan Discharge Patient Disposition: Admitted As Inpatient Clinical Impression: Sepsis, Obstructive sleep apnea, Diabetic peripheral neuropathy associated with type 2 diabetes mellitus, Cellulitis Condition: Stable Prescriptions: No Action levothyroxine [Synthroid] 100 mcg tablet 100 mcg PO ONCE RF: 0 gabapentin 300 mg capsule 600 mg PO TID RF: 0 spironolactone 50 mg tablet 50 mg PO QAM RF: 0 allopurinol 300 mg tablet 150 mg PO ONCE RF: 0 Colace Clear 50 mg capsule 50 mg PO ONCE RF: 0 Novolog Flexpen U-100 Insulin 100 unit/mL (3 mL) insulin pen 50 unit SUBCUT BID RF: 0 insulin lispro [Humalog U-100 Insulin] 100 unit/mL solution 22 unit SUBCUT .COMPLEX RF: 0 Prolia 60 mg/mL syringe 60 mg SUBCUT .COMPLEX RF: 0 hydrochlorothiazide 25 mg tablet 25 mg PO QAM RF: 0 tamsulosin [Flomax] 0.4 mg capsule 0.4 mg PO BID RF: 0 cholecalciferol (vitamin D3) [Vitamin D3] 125 mcg (5,000 unit) tablet 50,000 unit PO .COMPLEX RF: 0 Onglyza 5 mg tablet 5 mg PO .QHS RF: 0 clobetasol 0.05 % ointment 1 applic TOPICAL DAILY RF: 0 clindamycin phosphate 1 % gel 1 applic topical BID RF: 0 terbinafine HCl 250 mg tablet 250 mg PO DAILY 14 Days Qty: 14 RF: 0 atenolol 100 mg tablet 100 mg PO BID RF: 0 Byetta 5 mcg/dose (250 mcg/mL) 1.2 mL pen injector 5 mcg SUBCUT BID RF: 0 venlafaxine [Effexor XR] 75 mg capsule,extended release 24hr 75 mg PO QAM Qty: 30 RF: 2 nitrofurantoin monohyd/m-cryst [Macrobid] 100 mg capsule 100 mg PO BID Qty: 60 RF: 2 methylprednisolone acetate [Depo-Medrol] 40 mg/mL suspension 40 mg intra-articular ONCE Qty: 1 RF: 0 bupivacaine (PF) 0.25 % (2.5 mg/mL) solution 1 ml intra-articular ONCE Qty: 1 RF: 0 levocetirizine [Xyzal] 5 mg tablet 5 mg PO DAILY RF: 0 pantoprazole 20 mg tablet,delayed release (DR/EC) 20 mg PO BID RF: 0 cyclobenzaprine 10 mg tablet 10 mg PO TID PRN (Reason: muscle spasm) Qty: 60 RF: 0 mupirocin 2 % ointment See Rx Instructions .ROUTE .COMPLEX Qty: 22 RF: 3 fluconazole 150 mg tablet See Rx Instructions .ROUTE .COMPLEX Qty: 2 RF: 1 venlafaxine [Effexor XR] 150 mg capsule,extended release 24hr 150 mg PO DAILY Qty: 30 RF: 2 Referrals: Laney Smith MD [Primary Care Provider] - Coding Level of Care Code ED Facilities Flight Check Pilot for Thelma Dc
--- NOTE | 2021-06-03 08:15 | XRR_ITS ---
PROCEDURE INFORMATION: Exam: XR Right Hip Exam date and time: 06/03/2021 8:15 AM Age: 50 years old Clinical indication: Injury or trauma; Fall; Blunt trauma (contusions or hematomas); Right; Hip; Additional info: Pain/fall TECHNIQUE: Imaging protocol: XR Right hip. Views: 2 or 3 views hip with pelvis when performed. COMPARISON: CR XR hip RT 2-3V wo/w pel* [id number] 08/26/2019 10:44 AM FINDINGS: Limitations: Body habitus. Bones/joints: Unremarkable. No acute fracture. Soft tissues: Unremarkable. XR/XR hip RT 2-3V wo/w pel* [id number] IMPRESSION: No evidence of fracture or dislocation. Body habitus does limit evaluation.
--- NOTE | 2021-06-03 08:16 | PC.NURSE ---
NOTFIED DR. ALANIZ OF GROUP EXERCISE CLASS INSTRUCTOR OF VERBALIZED. VO FOR FLUID BOLUS'S AND STATED HE WOULD PLACE ORDER FOR LEVOPHED.
--- NOTE | 2021-06-03 08:19 | XRR_ITS ---
PROCEDURE INFORMATION: Exam: XR Left Knee Exam date and time: 06/03/2021 8:19 AM Age: 50 years old Clinical indication: Injury or trauma; Fall; Blunt trauma; Knee; Left; Additional info: Pain TECHNIQUE: Imaging protocol: XR Left knee. Views: 3 views. COMPARISON: [place] [id number] 06/03/2021 8:17 AM FINDINGS: Bones/joints: Normal. Soft tissues: Normal. XR/XR knee LT 3V* [id number] IMPRESSION: No acute findings.
[2021-06-03 09:13] LABS: Troponin 5 2HR Delta 0 ABS# (0-10)
[2021-06-03] MEDS: fentaNYL 50 mcg/mL INJ 2mL 25 MCG IVP (09:29)
--- NOTE | 2021-06-03 10:17 | P.HP_ITS ---
Providers/Chief Complaint Primary Care Provider: Laney Smith MD Chief Complaint: weakness History of Present Illness Santiago Arndt is a 50 year old female with past medical history of diabetes, obesity,kidney stone, HTN, HLD,, fibromyalgia, chronic migraines who presented to the hospital today via EMS for complaint of left lower leg redness. History was obtained by daughters at bedside. One of her daughters is an ICU n urse at our hospital. Last night around 10 PM patient's vitals were okay and she was doing well. Around 2 in the morning she was found to be with a fever of 104. She fell in the bathroom. She describes that she got dizzy and then fell. She had to crawl back to the couch. Her daughter checked up on her and called EMS. Patient has had redness in her left lower leg for a few days now but now i t worsened. Patient denies chest pain, abdominal pain, back pain, shortness of breath, headache, cough. Patient was quite drowsy and dizzy most likely due to low blood pressure and was unable to give much of a detailed history. ED course: Blood pressure on arrival to the hospital was 50s to 60s systolic. She was given 2 L normal saline and pressure came up to 70/40 heart rate 102. She was given 4 L normal saline IV fluid total. Levophed was ordered as well. Blood cultures were ordered, WBC 15.5, creatinine 1.4, blood sugar 268, magnesium 1.3. Troponin and lipase negative, lactate 2.2. Denies smoking, denies alcohol use. Lives alone at home Home medications: I verified myself by going through patient's medication bag and asking the patient about every single medication. Hydrochlorothiazide 25 mg once a day Allopurinol 300 mg once a day Acyclovir 400 mg once a day at night Docusate sodium 100 mg tablet?4 tablets at bedtime Cetirizine 10 mg as needed Venlafaxine 75 mg in the morning and 150 mg at night Atenolol 25 twice daily Gabapentin 600 mg 3 times daily Spironolactone 100 mg once a day Synthroid 100 mg once a day. Tamsulosin 0.4 mg every night. Unsure what she is on for diabetes but the daughters do state that she takes insulin. Will verify with the patient. Review of Systems General: Reports: 10 or more systems reviewed and unremarkable except in HPI and below Medications/Allergies Home Medications Medication Instructions Recorded Confirmed Last Taken Type allopurinol 300 mg tablet 150 mg PO BEDTIME tab 07/07/19 06/03/21 06/02/21 History denosumab 60 mg/mL subcutaneous 60 mg SUBCUT .COMPLEX 07/07/19 06/03/21 Unknown History syringe gabapentin 300 mg capsule 600 mg PO TID cap 07/07/19 06/03/21 06/02/21 History hydrochlorothiazide 25 mg tablet 25 mg PO QAM PRN 07/07/19 06/03/21 Unknown History insulin aspart U-100 100 unit/mL 50 unit SUBCUT BID ml 07/07/19 06/03/21 06/02/21 History (3 mL) subcutaneous pen insulin lispro 100 unit/mL 15 unit SUBCUT TIDWM ml 07/07/19 06/03/21 06/02/21 History subcutaneous solution levothyroxine 100 mcg tablet 100 mcg PO DAILY 07/07/19 06/03/21 06/02/21 History spironolactone 50 mg tablet 50 mg PO QAM 07/07/19 06/03/21 06/02/21 History tamsulosin 0.4 mg capsule 0.4 mg PO BID cap 07/24/19 06/03/21 06/03/21 History levocetirizine 5 mg tablet 5 mg PO DAILY 12/09/19 06/03/21 06/02/21 History mupirocin 2 % topical ointment See Rx Instructions .ROUTE 05/05/20 06/03/21 Unknown Rx .COMPLEX #22 g cyclobenzaprine 10 mg tablet 10 mg PO TID PRN #60 tab 12/20/20 06/03/21 Unknown Rx cholecalciferol (vitamin D3) 125 50,000 unit PO .COMPLEX tab 02/07/21 06/03/21 05/29/21 History mcg (5,000 unit) tablet terbinafine HCl 250 mg tablet 250 mg PO DAILY 14 Days #14 tab 02/15/21 06/03/21 06/02/21 Rx fluconazole 150 mg tablet See Rx Instructions .ROUTE 03/09/21 06/03/21 Unknown Rx .COMPLEX #2 each atenolol 100 mg tablet 100 mg PO BID tab 03/15/21 06/03/21 06/02/21 History Effexor XR 75 mg PO QPM 06/03/21 06/03/21 06/02/21 History Effexor XR 150 mg PO QAM 06/03/21 06/03/21 06/02/21 History Macrobid 100 mg PO BID PRN 06/03/21 06/03/21 Unknown History albuterol sulfate 2 puff INHALATION QID PRN 06/03/21 06/03/21 Unknown History cetirizine 10 mg PO DAILY PRN 06/03/21 06/03/21 Unknown History docusate sodium 300 mg PO DAILY 06/03/21 06/03/21 06/02/21 History dulaglutide [Trulicity] 0.75 mg SUBCUT Q7D 06/03/21 06/03/21 Unknown History insulin aspart U-100 [Novolog 50 unit SUBCUT BID 06/03/21 06/03/21 Unknown History Flexpen U-100 Insulin] omeprazole 20 mg PO BID 06/03/21 06/03/21 06/02/21 History rosuvastatin [Crestor] 10 mg PO DAILY 06/03/21 06/03/21 Unknown History Allergies Allergy/AdvReac Type Severity Reaction Status Date / Time lactose Allergy Mild sick to Verified 04/19/21 10:43 stomach amoxicillin [From Augmentin] Allergy vomiting/ra Verified 04/19/21 10:43 sh clavulanic acid Allergy vomiting/ra Verified 04/19/21 10:43 [From Augmentin] sh hydromorphone Allergy unknown Verified 04/19/21 10:43 lactase [From Dairy Aid] Allergy sick to Verified 04/19/21 10:43 stomach latex Allergy rash Verified 04/19/21 10:43 levofloxacin [From Levaquin] Allergy rash Verified 04/19/21 10:43 Penicillins Allergy rash/vomiti Verified 04/19/21 10:43 ng rosuvastatin [From Crestor] Allergy unknown Verified 04/19/21 10:43 simvastatin [From Zocor] Allergy unknown Verified 04/19/21 10:43 PFSH Acute PFSH: Medical History Chronic low back pain Diabetes Dyslipidemia Excoriation (skin-picking) disorder Facet arthropathy, lumbar Hypertension Hypothyroid Incomplete bladder emptying Major depressive disorder, recurrent severe without psychotic features Melanoma Obstructive sleep apnea Opioid contract exists Psychiatric care Renal calculi Tachycardia Yeast vaginitis Surgical History H/O: hysterectomy History of appendectomy History of cholecystectomy History of tonsillectomy and adenoidectomy Hx of lumpectomy Family History Grandmother Cancer LUNG CANCER Diabetes Heart disease Bleeding disorder Clotting disorder CAD (coronary artery disease) Lung disease Dementia Grandfather Cancer PROSTATE CANCER Diabetes Chronic kidney disease (CKD) Dementia Father Diabetes Hypertension Mother Lung disease COPD Hypertension Denies family history of Suicide Anesthesia complication Stroke Social History Second hand smoke exposure: No Alcohol intake: never Lives independently: Yes Current occupational status: disabled History of recent travel: No (travels from [facility]. Has went to [facility] in past week ) Vitals/I&O/Wt Last Vital Signs Temp 98.4 F 06/03/21 06:46 Pulse 95 06/03/21 09:00 Resp 15 06/03/21 09:29 BP 78/48 06/03/21 09:00 Pulse Ox 95 06/03/21 09:00 Weight last 48 hrs Weight 131.088 kg Physical Exam Narrative: EXAM NARRATIVE: General: Alert oriented x3, patient seen and examined in bed 12 in ED and presence of 2 of her daughters. Patient seemed quite drowsy but not confused. She would open her eyes and answer questions appropriately from time to time. HEENT: Normocephalic, atraumatic, EOMI, breathing room air. Cardio: Regular rate rhythm, normal S1-S2, no murmurs unable to assess JVD due to body habitus and position. Respiratory: Good bilateral air entry, anterior lung mendoza. Unable to auscultate posterior lung mendoza but bases are clear. GI: Abdomen soft, nontender, obese rounded abdomen, bowel sounds positive. Extremities: Left leg below the knee has a large area of erythema. Area is warm as well. No fluctuance noted on exam. Area has been marked with a pen. Foot is clear of erythema. Right leg has a lot of small bug bite-like lesions. But daughters mentioned that she has a skin condition and she has those kind of nicole all over her legs and arms and they are chronic. Data : 06/03/21 06:51 06/03/21 06:51 Micro: Microbiology 06/03/21 06:50 Blood Culture - Preliminary Blood SPECIMEN COLLECTED 06/03/21 06:50 Blood Culture - Preliminary Blood SPECIMEN COLLECTED A&P Assessment and plan (1) Sepsis: Status: Acute (2) Cellulitis: Status: Acute (3) Chronic migraine without aura, intractable, with status migrainosus: Status: Acute (4) Diabetic peripheral neuropathy associated with type 2 diabetes mellitus: Status: Acute (5) History of kidney stones: Status: Acute (6) Recurrent cystitis: Status: Acute (7) Obstructive sleep apnea: Status: Acute (8) Dyslipidemia: Status: Acute (9) Hypertension: Status: Acute Qualifiers: Hypertension type: essential hypertension Qualified Code(s): I10 - Essential (primary) hypertension Additional A&P Information #Septic shock secondary to cellulitis of left leg versus unknown source #Recurrent cystitis #History of kidney stones #Acute kidney injury -Presented with systolic blood pressure fifties to sixties received 4 L normal saline. Levophed started. ?Goal to keep map above 65. adjunct faculty for medical terminology goal to wean off pressors. ?Blood culture pending - WBC 15.5, creatinine 1.4, lactic acid elevated ?We will check urine culture, blood culture, sputum Gram stain, MRSA nares ?We will check CT left leg to rule out air and soft tissue ?Venous Doppler rule out DVT - Start vanc, aztreonam. WIll descalate as able to. - Admit to ICU - Reduce gabapentin dose due to CAROLE. #Dyslipidemia #Hypertension #Tachycardia?unknown specifics - Hold antihypertensives - Hold BB - Has filled Crestor recently but has not started taking it. #Obstructive sleep apnea -Continue CPAP at night #Diabetes mellitus associated peripheral neuropathy -Moderate intensity sliding scale check A1c. #Chronic migraine - Stable #Depression - Continue venlafaxine Full Code DVT PPX: Heparin No mechanical Ppx Attestations Medical Necessity Statement*: > 72 hour stay Coding Level of Care Code Acute [employer] [facility] for [facility] Fwd Diagnoses Sepsis A41.9 Cellulitis L03.90 Chronic migraine without aura, intractable, with status migrainosus G43.711 Diabetic peripheral neuropathy associated with type 2 diabetes mellitus E11.42 History of kidney stones Z87.442 Recurrent cystitis N30.90 Obstructive sleep apnea G47.33 Dyslipidemia E78.5 Hypertension I10 Hypertension type: essential hypertension
[2021-06-03 10:46] LABS: Lactic Acid level (Lactate) 2.3 mmol/L (0.5-2.2)
[2021-06-03] MEDS: heparin 5,000 unit/mL INJ 1 mL 5000 UNIT SUBCUT ×2 (11:00→23:04)
[2021-06-03] MEDS: sodium chloride 0.9% 1,000 ML 125 ML IV (11:02)
[2021-06-03] MEDS: aztreonam 2,000 MG in sodium chloride 0.9% (plus) 100 ML 200 MG IV ×2 (11:05→19:24)
[2021-06-03] MEDS: pantoprazole 40 mg SDV IVP (11:10)
--- NOTE | 2021-06-03 11:20 | PC.NURSE ---
PLACED BY JOSE MARMOLEJO
[2021-06-03 11:27] LABS: Add Urine Microscopic? NO; Charge for UA Resulting for Rev
[2021-06-03] MEDS: insulin lispro 100 unit/1 mL SUBCUT ×2 (11:29→19:30)
[2021-06-03 11:32] LABS: Bilirubin Urine Neg (Negative); Blood Urine Neg (Negative); Glucose Urine UA Norm (Normal); Ketones Urine Negative (Negative); Leukocyte Esterase Urine Negative (Negative); Nitrate Urine Negative (Negative); Protein Urine Neg (Negative); Urine Appearance Clear (CLEAR); Urine Color Yellow (Yellow); Urobilinogen Urine Norm (Negative); pH Urine 5 (5-7)
[2021-06-03] MEDS: acetaminophen 325 mg Tablet 650 MG PO (12:53)
--- NOTE | 2021-06-03 12:53 | ECG_ITS ---
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 Measurements Intervals [place] Rate: 117 P: 65 NM: 166 QRS: 50 QRSD: 92 T: 41 QT: 316 QTc: 442 Interpretive Statements SINUS TACHYCARDIA ABNORMAL RHYTHM ECG Compared to ECG 06/03/2021 07:07:11 Sinus rhythm no longer present Electronically Signed On 06-03-2021 16:54:14 KILN TESTER by Marley Karimi M.D. [email or web address]
[2021-06-03 13:16] LABS: Troponin 5 6HR Delta 0 ng/L (0-12)
--- NOTE | 2021-06-03 13:30 | PC.NURSE ---
PC TO DR. ANGULO INFORMED HER PT HR IS 122BPM IN NSR AND THAT PT IS REQUESTING HOME MEDS OF GABAPENTIN SHE VERBALIZED SHE WAS ADJUSTING DOSES AND WOULD PUT ORDERS IN.
[2021-06-03] MEDS: sodium chloride 0.9% 1,000 ML 200 ML IV ×2 (13:58→18:04)
--- NOTE | 2021-06-03 14:17 | PC.NURSE ---
TEMP IS 103.1 F ASKED [facility] ADVISORY SERVICES ASSOCIATE TO PAGE DR. ANGULO SHE VERBALIZED UNDERSTANDING AND STATED SHE WOULD PAGE THEM JENAE.
[2021-06-03] MEDS: ibuprofen 200 mg Tablet 400 MG PO ×2 (14:42→23:10)
[2021-06-03] MEDS: acetaminophen 500 mg Tablet 1000 MG PO (14:42)
--- NOTE | 2021-06-03 15:53 | PC.NURSE ---
assisted pt with positioning. pt status is unchanged she denies any further needs at this time.
--- NOTE | 2021-06-03 17:12 | PC.NURSE ---
ASSISTED PT WITH POSITIONING PT IS IN NAD. PT DENIES ANY FURTHER NEEDS.
[2021-06-03] MEDS: vancomycin 750 MG in sodium chloride 0.9% 250 ML 250 MG IV (18:17)
[2021-06-03] MEDS: venlafaxine ER (24HR) 75 mg Capsule PO (19:23)
--- NOTE | 2021-06-03 19:35 | PC.NURSE ---
REPORT GIVEN TO ALSHAWN MARMOLEJO ASSUMED CARE.
[2021-06-03] MEDS: ondansetron 2 mg/ML SDV 2 mL 4 MG IVP (21:11)
--- NOTE | 2021-06-03 22:48 | P.DS_ITS ---
Discharge Providers Date of Admission: 06/03/21 10:06 Date of Discharge: 06/03/2021 Attending Provider at Admission: Evelyn Marques MD Attending Provider at Discharge: Evelyn Marques MD Primary Care Provider: Laney Smith MD Diagnoses at Discharge Discharge Diagnosis (1) Sepsis: Status: Acute (2) Cellulitis: Status: Acute (3) Chronic migraine without aura, intractable, with status migrainosus: Status: Acute (4) Diabetic peripheral neuropathy associated with type 2 diabetes mellitus: Status: Acute (5) History of kidney stones: Status: Acute (6) Recurrent cystitis: Status: Acute (7) Obstructive sleep apnea: Status: Acute (8) Dyslipidemia: Status: Acute (9) Hypertension: Status: Acute Qualifiers: Hypertension type: essential hypertension Qualified Code(s): I10 - Essential (primary) hypertension Reason for Visit Reason for Visit: weakness Hospital Course Hospital Course Patient was admitted for sepsis secondary to cellulitis of the lower extremity. She did require vasopressors in the ER. Due to not having the availability of an ICU bed patient was transferred from the ER to [facility]. Dr. Lyman signed the transfer form and spoke to the receiving physician. Accepting provider: Dr. Lanny Finn. Time of transfer 11:45 PM on 06/03/2021. Physical Exam Urinary Catheter Management^: Col[place]: Cath Placed During This Visit: yes Reason for Continuing Indwelling Catheter: Accurate Measurement of Urinary Output in Critically Ill Patients Urinary Catheter Date of Insertion: 06/03/21 Urinary Catheter Time of Insertion: 11:18 Discharge Data Data Completed and Pending: Completed Studies During Hospitalization Category Date Time Status XR chest 1V margareth ble [id number] Stat Exams 06/03/21 07:10 Completed XR hip RT 2-3V wo /w pel* [id number] Stat Exams 06/03/21 08:15 Completed XR knee LT 3V* [id number] Stat Exams 06/03/21 08:19 [place] [id number] Stat Ultrasound 06/03/21 07:10 Completed Vitals: Last Vital Signs Temp 100.1 F H 06/03/21 17:13 Pulse 110 H 06/04/21 00:14 Resp 21 H 06/04/21 00:14 BP 127/94 06/04/21 00:14 Pulse Ox 100 06/04/21 00:14 Discharge Plan Discharge Patient Disposition: Xfer Other Condition: Stable Prescriptions: No Action levothyroxine [Synthroid] 100 mcg tablet 100 mcg PO DAILY RF: 0 gabapentin 300 mg capsule 600 mg PO TID RF: 0 allopurinol 300 mg tablet 300 mg PO BEDTIME RF: 0 Novolog Flexpen U-100 Insulin 100 unit/mL (3 mL) insulin pen 50 unit SUBCUT BID RF: 0 insulin lispro [Humalog U-100 Insulin] 100 unit/mL solution 15 unit SUBCUT TIDWM RF: 0 Prolia 60 mg/mL syringe 60 mg SUBCUT .COMPLEX RF: 0 hydrochlorothiazide 25 mg tablet 25 mg PO QAM PRN (Reason: Blood Pressure) RF: 0 tamsulosin [Flomax] 0.4 mg capsule 0.4 mg PO BID RF: 0 cholecalciferol (vitamin D3) [Vitamin D3] 125 mcg (5,000 unit) tablet 50,000 unit PO .COMPLEX RF: 0 levocetirizine [Xyzal] 5 mg tablet 5 mg PO DAILY RF: 0 cyclobenzaprine 10 mg tablet 10 mg PO TID PRN (Reason: muscle spasm) Qty: 60 RF: 0 venlafaxine [Effexor XR] 150 mg capsule,extended release 24hr 150 mg PO QAM Qty: 30 RF: 2 venlafaxine [Effexor XR] 75 mg capsule,extended release 24hr 75 mg PO QPM Qty: 30 RF: 2 mupirocin 2 % ointment See Rx Instructions .ROUTE .COMPLEX Qty: 22 RF: 3 fluconazole 150 mg tablet See Rx Instructions .ROUTE .COMPLEX Qty: 2 RF: 1 cetirizine 10 mg Tablet 10 mg PO DAILY PRN (Reason: Allergy Symptoms) RF: 0 docusate sodium 100 mg capsule 300 mg PO BEDTIME RF: 0 omeprazole 20 mg Capsule,Delayed Release(Dr/Ec) 20 mg PO BID RF: 0 albuterol sulfate 90 mcg/actuation Hfa Aerosol Inhaler 2 puff INHALATION QID PRN (Reason: Shortness Of Breath) RF: 0 rosuvastatin [Crestor] 10 mg Tablet 10 mg PO DAILY RF: 0 Trulicity 0.75 mg/0.5 mL pen injector 0.75 mg SUBCUT Q7D RF: 0 nitrofurantoin monohyd/m-cryst [Macrobid] 100 mg capsule 100 mg PO BID PRN (Reason: UTI) RF: 0 spironolactone 100 mg Tablet 100 mg PO DAILY RF: 0 atenolol 25 mg tablet 25 mg PO BID RF: 0 acyclovir 400 mg tablet 400 mg PO BID RF: 0 Referrals: Laney Smith MD [Primary Care Provider] - Discharge Attestations Time Spent in Discharge Care*: other Quality Metrics Clinical Quality Measures During this hospital stay, did patient experience: None Coding Level of Care Code Acute g [facility] note Diagnoses Sepsis A41.9 Cellulitis L03.90 Chronic migraine without aura, intractable, with status migrainosus G43.711 Diabetic peripheral neuropathy associated with type 2 diabetes mellitus E11.42 History of kidney stones Z87.442 Recurrent cystitis N30.90 Obstructive sleep apnea G47.33 Dyslipidemia E78.5 Hypertension I10 Hypertension type: essential hypertension
[2021-06-03] MEDS: docusate sodium 100 mg Capsule 400 MG PO (23:04)
[2021-06-04 00:14] VITALS: BP 127/94; PULSE 110; RESP 21; O2SAT 100
[2021-06-05 21:09] LABS: Glucose Point of Care 233 mg/dL (70-110)
[2021-06-05 21:09] LABS: Glucose Point of Care 333 mg/dL (70-110)
== END 2021-06-03 23:55 | disposition short-term general hospital (02) | DRG 872 ==
LOC: ER 09:46 → ER IP 13:01
PROVIDERS: Admitting Provider Internal Medicine; Emergency Provider Family Medicine; PCP Internal Medicine; Visit Provider Internal Medicine
DX: A41.9 Sepsis, unspecified organism (principal); L03.119 Cellulitis of unspecified part of limb; Z68.42 Body mass index [BMI] 45.0-49.9, adult; N17.9 Acute kidney failure, unspecified; L03.116 Cellulitis of left lower limb; F33.9 Major depressive disorder, recurrent, unspecified; E11.42 Type 2 diabetes mellitus with diabetic polyneuropathy; Z87.442 Personal history of urinary calculi; G47.33 Obstructive sleep apnea (adult) (pediatric); E78.5 Hyperlipidemia, unspecified; I10 Essential (primary) hypertension; Z79.4 Long term (current) use of insulin; E66.9 Obesity, unspecified; Z79.899 Other long term (current) drug therapy
CPT/HCPCS: 36415; 36416; 36600; 51702; 71045; 73502; 73562; 80051; 80053; 81003; 82009; 82330; 82805; 82962; 83605; 83690; 83735; 84484; 85025; 87040; 93005; 93971; 96365; 96366; 96367; 96372; 96375; 99285; C9113; J1644; J1815; J2405; J3010; J3370; J3490; J7030; J7050

== ENCOUNTER 2021-06-15 13:05 | Outpatient (CLI) | payer MEDICAID, SELFPAY ==
[2021-06-15 13:45] LABS: Basophils # 0.1 10^3/uL (0.0-0.1); Basophils % 1.1 %; Eosinophils # 0.2 10^3/uL (0.0-0.8); Eosinophils % 2.1 %; Hematocrit 33.9 % (37.0-47.0); Hemoglobin 10.1 g/dL (11.5-15.3); Lymphocytes # 2.8 10^3/uL (0.8-4.8); Lymphocytes % 39.9 %; Mean Corpuscular HGB Conc 29.8 g/dL (30.0-36.0); Mean Corpuscular Hemoglobin 24.8 pg (28.0-34.0); Mean Corpuscular Volume 83.1 fl (81-99); Mean Platelet Volume 9.7 fL (7.4-10.4); Monocytes # 0.3 10^3/uL (0.2-0.9); Monocytes % 4.7 %; Neutrophils # 3.61 10^3/uL (1.8-7.7); Neutrophils % 51.6 %; Nucleated Red Blood Cells % 0 %; Platelet Count 320 10^3/cmm (130-400); Red Blood Count 4.08 10^6/uL (4.1-5.3); Red Cell Distribution Width 16.3 % (12.1-15.1)
[2021-06-15 13:59] LABS: Alanine Aminotransferase 12 U/L (0-33); Albumin Level 3.4 g/dL (3.5-5.2); Alkaline Phosphatase 76 IU/L (35-105); Anion Gap 16.8 (5-19); Aspartate Amino Transferase 12 U/L (0-32); Blood Urea Nitrogen 7 mg/dL (6-20); Calcium 7.9 mg/dL (8.5-10.5); Carbon Dioxide 24 mmol/L (22-29); Chloride 104 mmol/L (98-107); Globulin 3.3 g/dL (1.3-4.6); Glomerular Filtration Rate 106.3 mL/min (90-130); Glucose 101 mg/dL (65-115); Osmolality Calculated 290 mOsm/kg (285-295); Potassium 3.8 mmol/L (3.5-5.1); Sodium 141 mmol/L (136-145); Total Bilirubin 0.2 mg/dL (0.15-1.2); Total Protein 6.7 g/dL (6.6-8.7)
== END 2021-06-15 13:06 | disposition home or self-care (01) ==
LOC: LAB 13:09
PROVIDERS: PCP Internal Medicine; Visit Provider Nurse Practitioner Family
DX: L03.90 Cellulitis, unspecified (principal); E11.9 Type 2 diabetes mellitus without complications
CPT/HCPCS: 36592; 80053; 85025

== ENCOUNTER 2021-06-19 12:21 | Outpatient (RCR) | payer MEDICAID, SELFPAY ==
[2021-06-13 12:55] VITALS: BMI 47.7
[2021-06-13 13:08] VITALS: BP 125/66; PULSE 69; RESP 16; TEMP 36.4; O2SAT 100
[2021-06-13] MEDS: cefTRIAXone 2,000 MG in sodium chloride 0.9% (plus) 50 ML 100 MG IV (13:32)
[2021-06-14] MEDS: cefTRIAXone 2,000 MG in sodium chloride 0.9% (plus) 50 ML 100 MG IV (12:46)
[2021-06-14 12:49] VITALS: BP 102/60; PULSE 76; RESP 18; TEMP 36.2; O2SAT 99
[2021-06-15 13:08] VITALS: BP 122/68; PULSE 70; RESP 20; TEMP 36.1; O2SAT 99
[2021-06-15] MEDS: cefTRIAXone 2,000 MG in sodium chloride 0.9% (plus) 50 ML 100 MG IV (13:19)
[2021-06-16 10:03] VITALS: BP 101/55; PULSE 75; RESP 20; TEMP 36.6; O2SAT 99
[2021-06-16] MEDS: cefTRIAXone 2,000 MG in sodium chloride 0.9% (plus) 50 ML 100 MG IV (10:04)
[2021-06-17 10:00] VITALS: BP 102/52; PULSE 87; RESP 18; TEMP 36.3; O2SAT 97
[2021-06-17] MEDS: cefTRIAXone 2,000 MG in sodium chloride 0.9% (plus) 50 ML 100 MG IV (11:03)
[2021-06-18] MEDS: cefTRIAXone 2,000 MG in sodium chloride 0.9% (plus) 50 ML 100 MG IV (09:48)
[2021-06-18 09:53] VITALS: BP 116/66; PULSE 92; RESP 18; TEMP 36.3; O2SAT 98
[2021-06-19 12:20] VITALS: BP 123/71; PULSE 90; RESP 18; TEMP 36.1; O2SAT 99
[2021-06-19] MEDS: cefTRIAXone 2,000 MG in sodium chloride 0.9% (plus) 50 ML 100 MG IV (12:31)
--- NOTE | 2021-06-19 13:05 | PC.NURSE ---
Pt 7th dose of Rocephin 2 gm IVPB infused as ordered. No further orders to continue medication or PICC dressing changes noted. Pt states she will be seeing BRIA Chairez at [facility] tomorrow 06/20/21.
== END 2021-06-23 23:59 | disposition home or self-care (01) ==
LOC: GILAB 12:21
PROVIDERS: PCP Internal Medicine; Visit Provider Internal Medicine
DX: L03.90 Cellulitis, unspecified (principal); E11.9 Type 2 diabetes mellitus without complications
CPT/HCPCS: 96365; J0696

== ENCOUNTER → 2021-06-22 07:38 | Outpatient (BNVA) | payer OTHER, MEDICAID, SELFPAY | PROVIDERS: PCP Internal Medicine; Visit Provider Nurse Practitioner | DX: F33.2 Major depressive disorder, recurrent severe without psychotic features (principal) | CPT/HCPCS: 99214 ==

== ENCOUNTER 2021-06-27 13:07 | Outpatient (CLI) | payer MEDICAID, SELFPAY | END 2021-06-27 13:08 | disposition home or self-care (01) | LOC: WOUND 13:08 | PROVIDERS: PCP Internal Medicine; Visit Provider Nurse Practitioner Family | DX: I96 Gangrene, not elsewhere classified (principal); L03.116 Cellulitis of left lower limb; E11.9 Type 2 diabetes mellitus without complications | CPT/HCPCS: 11042; 11045; 87070; 87075; 87205 ==

== ENCOUNTER 2021-07-04 13:05 | Outpatient (CLI) | payer MEDICAID, SELFPAY | END 2021-07-04 13:06 | disposition home or self-care (01) | LOC: WOUND 13:06 | PROVIDERS: PCP Internal Medicine; Visit Provider Emergency Medicine | DX: L03.116 Cellulitis of left lower limb (principal); E11.9 Type 2 diabetes mellitus without complications | CPT/HCPCS: 11042; 99212 ==

== ENCOUNTER 2021-07-04 15:15 | Outpatient (CLI) | payer MEDICAID, SELFPAY ==
--- NOTE | 2021-07-04 15:27 | USCV_ITS ---
Santiago Arndt Age: 50 Gender: F : 1970 Exam Date: 07/04/2021 16:01 Ordering Phys: Rebecca Das DO Technologist: BLANKA [place] [facility] [place] LEG PAIN HISTORY: Lower extremity swelling. Lower extremity pain. PROCEDURES: Venous duplex imaging was performed in only the left lower extremity. The following venous structures were evaluated: common femoral vein, profunda vein, proximal portion of the greater saphenous vein, superficial femoral vein, and the popliteal vein. In addition, the posterior tibial and peroneal trunk were evaluated. FINDINGS: Normal 2-D Doppler and augmentation and compressibility throughout the lower extremity venous structures. Additional imaging through the proximal calf veins also reveals no thrombus. Limited evaluation of the greater saphenous vein is patent with no thrombus. There appears to be edema in patient directed areas of the left calf. Veins in this area appear compressible and free of thrombus at this time. CONCLUSIONS No evidence of left lower extremity DVT. Edema in patient directed area left calf Reggie Garcia MD (Electronically Signed) Final Date: 04 July 2021 17:04 S
== END 2021-07-04 15:16 | disposition home or self-care (01) ==
LOC: RAD 15:20
PROVIDERS: PCP Internal Medicine; Visit Provider Emergency Medicine
DX: M79.605 Pain in left leg (principal); E11.622 Type 2 diabetes mellitus with other skin ulcer; R60.0 Localized edema
CPT/HCPCS: 93971

== ENCOUNTER → 2021-07-10 14:14 | Outpatient (BNVA) | payer MEDICAID, SELFPAY | PROVIDERS: PCP Internal Medicine; Visit Provider Specialist | DX: G43.711 Chronic migraine without aura, intractable, with status migrainosus (principal) | CPT/HCPCS: 99214 ==

== ENCOUNTER 2021-07-11 15:14 | Outpatient (CLI) | payer MEDICAID, SELFPAY | END 2021-07-11 15:15 | disposition home or self-care (01) | LOC: WOUND 15:14 | PROVIDERS: PCP Internal Medicine; Visit Provider Emergency Medicine | DX: Z09 Encounter for follow-up examination after completed treatment for conditions other than malignant neoplasm (principal); E11.9 Type 2 diabetes mellitus without complications | CPT/HCPCS: 99213 ==

== ENCOUNTER → 2021-07-20 09:30 | Outpatient (BNVA) | payer MEDICAID, SELFPAY | PROVIDERS: PCP Internal Medicine; Visit Provider Anesthesiology Pain Medicine | DX: G89.29 Other chronic pain (principal); M47.816 Spondylosis without myelopathy or radiculopathy, lumbar region; M79.18 Myalgia, other site; M25.551 Pain in right hip; M53.3 Sacrococcygeal disorders, not elsewhere classified; M25.511 Pain in right shoulder; M54.12 Radiculopathy, cervical region | CPT/HCPCS: 20553; 99213; J1030; J3490 ==

== ENCOUNTER 2021-08-04 07:40 | Outpatient (CLI) | payer MEDICAID, SELFPAY ==
--- NOTE | 2021-08-04 08:00 | USCV_ITS ---
Santiago Arndt Age: 50 Gender: F : 1970 Exam Date: 08/04/2021 08:18 Ordering Phys: Sourav Dominguez MD (Andy) ([email or web address]) Technologist: SHARMILA Exam Location: [facility] [place] Indication: HISTORY: Morbid Obesity. Diagnosed with psoriasis dermatitis , chronic biltaral calf ulcerations, erythema, and edema for many years. No hx DVT. Recent cellulitis, taking antibiotics since May 24, two different antibiotics, still taking. No hx DVT. PROCEDURES: The examination was performed in a dependent position, 45 degree Reverse Trendelenberg to elicit insufficiency if present. Valsalva maneuvers were also performed. The venous duplex Doppler examination of both lower extremities was performed in the standard fashion. The following venous structures were evaluated: common femoral vein, profunda vein, proximal portion of the greater saphenous vein, superficial femoral vein, and the popliteal vein. In addition, the posterior tibial veins and the peroneal veins were evaluated. Serial compression, augmentation maneuvers, and spectral Doppler flow evaluation were performed, which weer normal. An evaluation for venous insufficiency was also completed. Bilaterally, the common femoral, superficial femoral, profunda femoral, popliteal, posterior tibial, greater saphenous veins, and the peroneal trunk were identified and interrogated in the standard fashion. These veins were found to be easily compressible with spontaneous blood flow. No evidence of significant insufficiency or thrombus noted. FINDINGS: The veins were found to be easily compressible with spontaneous blood flow. Non pulsatile flow pattern. No significant reflux were noted in the deep or superficial veins CONCLUSIONS No evidence of DVT in the above-mentioned identifiable veins. No significant venous reflux either in the superficial or in thedeep veins. The venous dimensions and depth from the surface are as mentioned above Dr Marley Karimi MD [facility] (Electronically Signed) Final Date: 14 August 2021 16:20 S
== END 2021-08-04 07:41 | disposition home or self-care (01) ==
LOC: RAD 07:45
PROVIDERS: PCP Internal Medicine; Visit Provider Thoracic Surgery (Cardiothoracic Vascular Surgery)
DX: M79.89 Other specified soft tissue disorders (principal)
CPT/HCPCS: 93970

== ENCOUNTER → 2021-09-11 15:38 | Outpatient (BNVA) | payer MEDICAID, SELFPAY | PROVIDERS: PCP Internal Medicine; Visit Provider Specialist | DX: M25.562 Pain in left knee (principal) | CPT/HCPCS: 73560; 73565 ==

== ENCOUNTER 2021-09-26 12:15 | Outpatient (CLI) | payer MEDICAID, SELFPAY ==
--- NOTE | 2021-09-26 12:35 | MM_ITS ---
WS: [id number] BILATERAL SCREENING 3D TOMOSYNTHESIS DIGITAL MAMMOGRAM WITH CAD HISTORY: SCREENING COMPARISON: 05/12/2020, 05/05/2019 Bilateral CC and MLO views submitted. Computer aided detection analyzed. Breast composition: There are scattered areas of fibroglandular density. No suspicious masses, microc alcifications or architectural distortion. Benign calcifications in each breast. MM/[place] [id number] IMPRESSION: BI-RADS: 2-Benign FOLLOW UP: 1 Year Follow-up
== END 2021-09-26 12:16 | disposition home or self-care (01) ==
PROVIDERS: PCP Internal Medicine; Visit Provider Internal Medicine
DX: Z12.31 Encounter for screening mammogram for malignant neoplasm of breast (principal)
CPT/HCPCS: 77063; 77067

== ENCOUNTER → 2021-10-10 08:06 | Outpatient (BNVA) | payer MEDICAID, SELFPAY | PROVIDERS: PCP Internal Medicine; Visit Provider Nurse Practitioner Family | DX: E11.42 Type 2 diabetes mellitus with diabetic polyneuropathy (principal) | CPT/HCPCS: 80048; 80061; 82043; 83036; 83721; 84439; 84443 ==

== ENCOUNTER → 2021-10-13 08:51 | Outpatient (BNVA) | payer MEDICAID, SELFPAY | PROVIDERS: PCP Internal Medicine; Visit Provider Nurse Practitioner | DX: F33.9 Major depressive disorder, recurrent, unspecified (principal) | CPT/HCPCS: 99214 ==

== ENCOUNTER → 2021-10-17 10:59 | Outpatient (BNVA) | payer MEDICAID, SELFPAY | PROVIDERS: PCP Internal Medicine; Visit Provider Anesthesiology Pain Medicine | DX: G89.29 Other chronic pain (principal); M79.18 Myalgia, other site; M25.551 Pain in right hip; M53.3 Sacrococcygeal disorders, not elsewhere classified; M47.816 Spondylosis without myelopathy or radiculopathy, lumbar region; M25.511 Pain in right shoulder; M54.12 Radiculopathy, cervical region | CPT/HCPCS: 99214 ==

== ENCOUNTER → 2021-11-23 12:59 | Outpatient (BNVA) | payer MEDICAID, SELFPAY | PROVIDERS: PCP Internal Medicine; Visit Provider Nurse Practitioner Family | DX: E11.42 Type 2 diabetes mellitus with diabetic polyneuropathy (principal); I10 Essential (primary) hypertension; E11.22 Type 2 diabetes mellitus with diabetic chronic kidney disease; E11.649 Type 2 diabetes mellitus with hypoglycemia without coma; N18.30 Chronic kidney disease, stage 3 unspecified; E55.9 Vitamin D deficiency, unspecified; E78.5 Hyperlipidemia, unspecified; E03.9 Hypothyroidism, unspecified; M81.0 Age-related osteoporosis without current pathological fracture; Z87.442 Personal history of urinary calculi; N30.90 Cystitis, unspecified without hematuria; E78.2 Mixed hyperlipidemia; E66.01 Morbid (severe) obesity due to excess calories; Z68.42 Body mass index [BMI] 45.0-49.9, adult; E16.0 Drug-induced hypoglycemia without coma; T38.3X5A Adverse effect of insulin and oral hypoglycemic [antidiabetic] drugs, initial encounter; Z79.4 Long term (current) use of insulin | CPT/HCPCS: 82306; 84439; 84443; 99205; 99213 ==

== ENCOUNTER → 2021-11-29 12:29 | Outpatient (BNVA) | payer MEDICAID, SELFPAY | PROVIDERS: PCP Internal Medicine; Visit Provider Anesthesiology Pain Medicine | DX: G89.29 Other chronic pain (principal); M47.816 Spondylosis without myelopathy or radiculopathy, lumbar region | CPT/HCPCS: 64493; 64494; 64495; J3490 ==

== ENCOUNTER → 2021-12-13 09:50 | Outpatient (BNVA) | payer MEDICAID, SELFPAY | PROVIDERS: PCP Internal Medicine; Visit Provider Podiatrist Foot & Ankle Surgery | DX: G89.29 Other chronic pain (principal); M47.816 Spondylosis without myelopathy or radiculopathy, lumbar region; L60.3 Nail dystrophy; E11.42 Type 2 diabetes mellitus with diabetic polyneuropathy; M21.621 Bunionette of right foot; M21.622 Bunionette of left foot; M20.41 Other hammer toe(s) (acquired), right foot; M20.42 Other hammer toe(s) (acquired), left foot; M21.41 Flat foot [pes planus] (acquired), right foot; M21.42 Flat foot [pes planus] (acquired), left foot; M77.41 Metatarsalgia, right foot; M77.42 Metatarsalgia, left foot; I73.9 Peripheral vascular disease, unspecified | CPT/HCPCS: 64493; 64494; 64495; 99214 ==

== ENCOUNTER 2022-01-19 12:30 | Outpatient (CLI) | payer MEDICAID, SELFPAY ==
--- NOTE | 2022-01-19 12:45 | USCV_ITS ---
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 No evidence of any significant arterial obstruction, based on the above findings. Dr Marley Karimi MD [facility] (Electronically Signed) Final Date: 19 January 2022 15:51 S
== END 2022-01-19 12:31 | disposition home or self-care (01) ==
LOC: RAD 12:33
PROVIDERS: PCP Internal Medicine; Visit Provider Podiatrist Foot & Ankle Surgery
DX: R09.89 Other specified symptoms and signs involving the circulatory and respiratory systems (principal); I73.9 Peripheral vascular disease, unspecified
CPT/HCPCS: 93923

== ENCOUNTER → 2022-01-25 15:03 | Outpatient (BNVA) | payer MEDICAID, SELFPAY | PROVIDERS: PCP Internal Medicine; Visit Provider Internal Medicine | DX: E11.649 Type 2 diabetes mellitus with hypoglycemia without coma (principal); E11.42 Type 2 diabetes mellitus with diabetic polyneuropathy; E11.22 Type 2 diabetes mellitus with diabetic chronic kidney disease; N18.30 Chronic kidney disease, stage 3 unspecified; E78.2 Mixed hyperlipidemia; E55.9 Vitamin D deficiency, unspecified; E03.9 Hypothyroidism, unspecified; M81.0 Age-related osteoporosis without current pathological fracture; Z87.442 Personal history of urinary calculi; N30.90 Cystitis, unspecified without hematuria; E66.01 Morbid (severe) obesity due to excess calories; Z68.42 Body mass index [BMI] 45.0-49.9, adult; E16.0 Drug-induced hypoglycemia without coma; T38.3X5A Adverse effect of insulin and oral hypoglycemic [antidiabetic] drugs, initial encounter; Z79.4 Long term (current) use of insulin | CPT/HCPCS: 99214 ==

== ENCOUNTER → 2022-01-31 10:08 | Outpatient (BNVA) | payer MEDICAID, SELFPAY | PROVIDERS: PCP Internal Medicine; Visit Provider Internal Medicine | DX: E03.9 Hypothyroidism, unspecified (principal); E11.42 Type 2 diabetes mellitus with diabetic polyneuropathy; E55.9 Vitamin D deficiency, unspecified; E78.2 Mixed hyperlipidemia | CPT/HCPCS: 80061; 82306; 84439; 84443 ==

== ENCOUNTER 2022-02-05 15:00 | Outpatient (CLI) | payer MEDICAID, SELFPAY ==
--- NOTE | 2022-02-05 15:12 | XR_ITS ---
WS: [id number] Exam: XR KUB [id number] Date/Time of Exam: 02/05/2022 3:15 PM Reason For Exam: Kidney Stones Comparison 12/01/2020. No bowel obstruction or free air. No sign of organ enlargement. Regional bony structures are intact. A battery pack superimposes the right pelvis. Nonspecific pelvic calcifications. XR/XR KUB [id number] IMPRESSION: 1. No acute abdominal process.
== END 2022-02-05 15:01 | disposition home or self-care (01) ==
LOC: RAD 15:01
PROVIDERS: PCP Internal Medicine; Visit Provider Urology
DX: Z87.442 Personal history of urinary calculi (principal); N30.90 Cystitis, unspecified without hematuria; R33.9 Retention of urine, unspecified; N20.9 Urinary calculus, unspecified
CPT/HCPCS: 52000; 74018; 81003; 99213

== ENCOUNTER 2022-03-08 12:33 | Outpatient (CLI) | payer MEDICAID, SELFPAY ==
--- NOTE | 2022-03-08 12:55 | XR_ITS ---
WS: [id number] Lumbar spine with flexion, extension, and neutral lateral, 03/08/2022 Clinical Data: VERTEBROGENIC LOW BACK PAIN Comparison: Lumbar spine, 09/10/2018. Findings: No compression fractures or subluxation is seen. No disc space narrowing is seen. No limitation of motion or subluxation is seen. There are clips in the upper abdomen from a cholecystectomy. XR/XR lumbar spine f/e only [id number] Impression: Negative for limitation of motion or subluxation on flexion or extension.
== END 2022-03-08 12:34 | disposition home or self-care (01) ==
LOC: RAD 12:43
PROVIDERS: PCP Internal Medicine; Visit Provider Nurse Practitioner
DX: M54.51 Vertebrogenic low back pain (principal)
CPT/HCPCS: 72120

== ENCOUNTER → 2022-04-10 09:06 | Outpatient (BNVA) | payer MEDICAID, SELFPAY | PROVIDERS: PCP Internal Medicine; Visit Provider Podiatrist Foot & Ankle Surgery | DX: E11.8 Type 2 diabetes mellitus with unspecified complications (principal); G57.60 Lesion of plantar nerve, unspecified lower limb; L60.3 Nail dystrophy; E11.42 Type 2 diabetes mellitus with diabetic polyneuropathy; M21.621 Bunionette of right foot; M21.622 Bunionette of left foot; M20.41 Other hammer toe(s) (acquired), right foot; M20.42 Other hammer toe(s) (acquired), left foot; M21.41 Flat foot [pes planus] (acquired), right foot; M21.42 Flat foot [pes planus] (acquired), left foot; I73.9 Peripheral vascular disease, unspecified; Z79.4 Long term (current) use of insulin | CPT/HCPCS: 99213; 99214 ==

== ENCOUNTER 2022-04-17 13:54 | Outpatient (CLI) | payer MEDICAID, SELFPAY ==
[2022-04-17 15:15] LABS: Albumin Level 3.8 g/dL (3.5-5.2); Calcium 9.1 mg/dL (8.5-10.5); Glomerular Filtration Rate 75.9 mL/min (90-130)
[2022-04-17 15:27] VITALS: BP 107/70; PULSE 71; RESP 18; TEMP 35.9; O2SAT 99
[2022-04-17 15:31] LABS: 25 Hydroxy Vitamin D 38 ng/mL (30-100)
[2022-04-17] MEDS: denosumab 60 mg SDV SUBCUT (15:34)
[2022-04-17 15:42] VITALS: BP 107/75; PULSE 66; RESP 18; TEMP 35.8; O2SAT 98
== END 2022-04-17 13:55 | disposition home or self-care (01) ==
PROVIDERS: PCP Internal Medicine; Visit Provider Internal Medicine
DX: M81.0 Age-related osteoporosis without current pathological fracture (principal)
CPT/HCPCS: 36415; 82040; 82306; 82310; 82565; 96372; J0897

== ENCOUNTER 2022-04-18 06:32 | Outpatient (CLI) | payer MEDICAID, SELFPAY ==
--- NOTE | 2022-04-18 06:53 | CT_ITS ---
WS: [id number] CT LUMBAR SPINE TECHNIQUE: Noncontrast CT of the lumbar spine with coronal and sagittal reformatted images. CLINICAL INFORMATION: VERTEBROGENIC LOW BACK PAIN COMPARISON: None. DLP: 1774.[address] scans at [facility] use at least one of these dose optimization techniques: automated e xposure control; mA and/or kV adjustment per patient size (includes targeted exams where dose is matc hed to clinical indication); or iterative reconstruction. FINDINGS: Normal lumbar alignment. No acute compression. No high-grade central canal stenosis. No anterolisthes is. No pars defects. Minimal disc bulging L5-S1. L1-L2: Normal. L2-L3: Slight RIGHT eccentric disc osteophytic ridging with mild RIGHT foraminal narrowing. Mild face t arthropathy. Spinal canal is patent. L3-L4: No significant disc bulging. Spinal canal and foramen are patent. Moderate facet arthropathy. L4-L5: Mild annular bulging with slight effacement of the ventral thecal sac. Moderate facet arthropa thy ligamentum flavum hypertrophy. Slight narrowing of the LEFT subarticular recess. Mild LEFT forami nal narrowing. RIGHT foramen is patent. L5-S1: Tiny shallow central protrusion. Slight effacement of the thecal sac. Advanced RIGHT facet art hropathy at this level. Spinal canal and foramen are patent. Visualized pelvic bony structures: Normal. Paravertebral soft tissues: Normal. Degenerative arthritis sacroiliac joints. CT/CT lumbar spine wo con* [id number] IMPRESSION: 1. Normal lumbar alignment. No acute compression. No high-grade central canal narrowing. 2. Mild annular bulging L4-L5 with narrowing of the LEFT subarticular recess. Mild LEFT L4-L5 foraminal narrowing. 3. Mild RIGHT L2-L3 foraminal narrowing. 4. Advanced facet arthropathy RIGHT L5-S1.
== END 2022-04-18 06:33 | disposition home or self-care (01) ==
LOC: RAD 06:32
PROVIDERS: PCP Internal Medicine; Visit Provider Nurse Practitioner
DX: M54.51 Vertebrogenic low back pain (principal); M51.36 Other intervertebral disc degeneration, lumbar region; M48.061 Spinal stenosis, lumbar region without neurogenic claudication; M47.896 Other spondylosis, lumbar region
CPT/HCPCS: 72131

== ENCOUNTER → 2022-05-31 12:45 | Outpatient (BNVA) | payer MEDICAID, SELFPAY | PROVIDERS: PCP Internal Medicine; Visit Provider Internal Medicine Cardiovascular Disease | DX: R00.0 Tachycardia, unspecified (principal); G47.33 Obstructive sleep apnea (adult) (pediatric); E78.5 Hyperlipidemia, unspecified; F33.2 Major depressive disorder, recurrent severe without psychotic features; F42.4 Excoriation (skin-picking) disorder; E11.42 Type 2 diabetes mellitus with diabetic polyneuropathy; G43.711 Chronic migraine without aura, intractable, with status migrainosus; L60.1 Onycholysis; I73.9 Peripheral vascular disease, unspecified; E66.01 Morbid (severe) obesity due to excess calories; Z68.42 Body mass index [BMI] 45.0-49.9, adult; E78.2 Mixed hyperlipidemia; I12.9 Hypertensive chronic kidney disease with stage 1 through stage 4 chronic kidney disease, or unspecified chronic kidney disease; E11.22 Type 2 diabetes mellitus with diabetic chronic kidney disease; N18.30 Chronic kidney disease, stage 3 unspecified; Z79.4 Long term (current) use of insulin | CPT/HCPCS: 93270; 99213 ==

== ENCOUNTER 2022-06-06 11:48 | Outpatient (CLI) | payer MEDICAID, SELFPAY ==
--- NOTE | 2022-06-06 12:01 | XRR_ITS ---
PROCEDURE INFORMATION: Exam: XR Bilateral Hips Exam date and time: 06/06/2022 12:16 PM Age: 51 years old Clinical indication: Hip pain; Bilateral; Prior surgery; Surgery type: Hyster, gb, appy; Patient HX: HX of melanoma; Additional info: Pain in R hip TECHNIQUE: Imaging protocol: Radiologic exam of the bilateral hips. Views: 2 views of hips with pelvis when performed. COMPARISON: CR XR hip RT 2-3V wo/w pel* [id number] 06/03/2021 8:39 AM FINDINGS: Bones/joints: Osseous structures and joint surfaces of both hip joints are preserved. There is no fracture, malalignment or underlying osseous lesion detected. Soft tissues: Unremarkable. XR/XR hip BI 3-4V wo/w pel [id number] IMPRESSION: Normal bilateral hips.
--- NOTE | 2022-06-06 12:01 | XRR_ITS ---
PROCEDURE INFORMATION: Exam: XR Right Knee Exam date and time: 06/06/2022 12:16 PM Age: 51 years old Clinical indication: Pain; Knee; Right; Patient HX: HX of melanoma; Additional info: Pain in right knee TECHNIQUE: Imaging protocol: Radiologic exam of the Right knee. Views: 3 views. COMPARISON: US CV [email or web address] LE BI [facility] [id number] 01/19/2022 1:25 PM FINDINGS: Bones/joints: There are mild degenerative changes involving the medial knee compartment with mild joint space narrowing and subchondral sclerosis. Remaining joint surfaces are preserved. There is no fracture or malalignment.. Soft tissues: Normal. There is no joint effusion. XR/XR knee RT 4V [id number] IMPRESSION: Mild degenerative changes medial knee compartment. No acute bony abnormalities.
== END 2022-06-06 11:49 | disposition home or self-care (01) ==
LOC: RAD 11:52
PROVIDERS: PCP Internal Medicine; Visit Provider Internal Medicine
DX: M25.551 Pain in right hip (principal); M25.561 Pain in right knee
CPT/HCPCS: 73522; 73564

== ENCOUNTER 2022-07-09 01:00 | Outpatient (CLI) | payer MEDICAID, SELFPAY | END 2022-07-09 23:00 | LOC: RAD 07-24 21:03 | PROVIDERS: PCP Internal Medicine; Visit Provider Specialist | DX: M17.0 Bilateral primary osteoarthritis of knee (principal); E66.01 Morbid (severe) obesity due to excess calories; Z68.43 Body mass index [BMI] 50.0-59.9, adult | CPT/HCPCS: 99214 ==

== ENCOUNTER → 2022-07-09 10:50 | Outpatient (BNVA) | payer MEDICAID, SELFPAY | PROVIDERS: PCP Internal Medicine; Visit Provider Specialist | DX: M17.0 Bilateral primary osteoarthritis of knee (principal); E66.01 Morbid (severe) obesity due to excess calories; Z68.43 Body mass index [BMI] 50.0-59.9, adult | CPT/HCPCS: 73560; 73565 ==

== ENCOUNTER 2022-08-20 07:51 | Outpatient (CLI) | payer MEDICAID, SELFPAY ==
--- NOTE | 2022-08-20 08:09 | MR_ITS ---
WS: [id number] MRI RIGHT KNEE NONCONTRAST TECHNIQUE: Axial PD, coronal PD fat sat, coronal PD, sagittal PD, and sagittal PD fat-sat images obta ined. CLINICAL INFORMATION: M25.569 - Pain in unspecified knee COMPARISON: None. FINDINGS: Distal quadriceps and patella tendons are intact. Normal ACL and PCL. Small suprapatellar effusion. I ncreased hazy signal abnormality in the posterior horn medial meniscus likely chronic. Peripheral ext rusion of the medial meniscus with mild chronic thinning. Mild chondromalacia patella. Normal medial and lateral patellar retinaculum. Grade II to III chondrom alacia involving the medial and lateral joint compartments. Medial and lateral collateral ligaments a ppear intact. Normal popliteus. Small popliteal cyst measuring 2.7 x 1.1 x 2.5 CM. MR/MR knee RT wo con* [id number] IMPRESSION: 1. Normal ACL and PCL. 2. Small suprapatellar effusion. 3. Increased hazy signal abnormality in the posterior horn medial meniscus wit h peripheral extrusion of the medial meniscus. Mild chronic thinning. 4. Mild chondromalacia patella. 5. Small popliteal cyst. 6. Medial and lateral collateral ligaments appear intact. Outbridge grading:
== END 2022-08-20 07:52 | disposition home or self-care (01) ==
LOC: RAD 07:53
PROVIDERS: PCP Internal Medicine; Visit Provider Specialist
DX: M25.461 Effusion, right knee (principal); M22.41 Chondromalacia patellae, right knee; M71.21 Synovial cyst of popliteal space [Baker], right knee; M25.561 Pain in right knee
CPT/HCPCS: 73721

== ENCOUNTER → 2022-08-27 13:28 | Outpatient (BNVA) | payer MEDICAID, SELFPAY | PROVIDERS: PCP Internal Medicine; Visit Provider Specialist | DX: M17.0 Bilateral primary osteoarthritis of knee (principal) | CPT/HCPCS: 99213 ==

== ENCOUNTER 2022-09-05 09:33 | Outpatient (CLI) | payer MEDICAID, SELFPAY ==
--- NOTE | 2022-09-05 09:48 | US_ITS ---
WS: [id number] ULTRASOUND SOFT TISSUES LEFT cervical chain. HISTORY: CERVICALGIA/OTALGIA, LEFT EAR COMPARISON: None available. TECHNIQUE: 2-D and color Doppler imaging is submitted. No significant lymphadenopathy is noted along the LEFT cervical chain and area of pain. Normal soft t issue. No distortion or mass effect. US/US soft tissue head neck [id number] IMPRESSION: Normal ultrasound LEFT cervical chain near the submandibular gland.
== END 2022-09-05 09:34 | disposition home or self-care (01) ==
PROVIDERS: PCP Internal Medicine; Visit Provider Otolaryngology
DX: H92.02 Otalgia, left ear (principal); M54.2 Cervicalgia
CPT/HCPCS: 76536

== ENCOUNTER 2022-09-11 13:42 | Outpatient (CLI) | payer MEDICAID, SELFPAY | END 2022-09-11 13:43 | disposition home or self-care (01) | LOC: SPT 13:42 | PROVIDERS: PCP Internal Medicine; Visit Provider Podiatrist Foot & Ankle Surgery | DX: Z46.89 Encounter for fitting and adjustment of other specified devices (principal); M76.72 Peroneal tendinitis, left leg; I73.9 Peripheral vascular disease, unspecified; G57.61 Lesion of plantar nerve, right lower limb; L60.3 Nail dystrophy; E11.42 Type 2 diabetes mellitus with diabetic polyneuropathy; M21.621 Bunionette of right foot; M21.622 Bunionette of left foot; M20.41 Other hammer toe(s) (acquired), right foot; M20.42 Other hammer toe(s) (acquired), left foot; M21.41 Flat foot [pes planus] (acquired), right foot; M21.42 Flat foot [pes planus] (acquired), left foot; Z79.4 Long term (current) use of insulin | CPT/HCPCS: 97760; 99214; L1902 ==

== ENCOUNTER → 2022-10-01 09:18 | Outpatient (BNVA) | payer MEDICAID, SELFPAY | PROVIDERS: PCP Internal Medicine; Visit Provider Podiatrist Foot & Ankle Surgery | DX: E11.42 Type 2 diabetes mellitus with diabetic polyneuropathy (principal); M21.621 Bunionette of right foot; M21.622 Bunionette of left foot; M20.41 Other hammer toe(s) (acquired), right foot; M20.42 Other hammer toe(s) (acquired), left foot; M21.41 Flat foot [pes planus] (acquired), right foot; M21.42 Flat foot [pes planus] (acquired), left foot; I73.9 Peripheral vascular disease, unspecified; G57.61 Lesion of plantar nerve, right lower limb; Z79.4 Long term (current) use of insulin | CPT/HCPCS: 99214 ==

== ENCOUNTER 2022-10-03 15:19 | Outpatient (CLI) | payer MEDICAID, SELFPAY ==
--- NOTE | 2022-10-03 15:30 | US_ITS ---
WS: [id number] ULTRASOUND SOFT TISSUES RIGHT foot HISTORY: to rule out Santiago's neuroma at third and fourth interspace COMPARISON: 08/24/2019 TECHNIQUE: 2-D and color Doppler imaging is submitted. No soft tissue mass is noted between the third and fourth metatarsals as suspected clinically. There is a hypoechoic nodule between the first and second distal metatarsals. Not the exact location expect ed for Santiago's neuroma. US/US soft tissue/extremity [id number] IMPRESSION: No Santiago's neuroma between the third and fourth interspace identified.
== END 2022-10-03 15:20 | disposition home or self-care (01) ==
LOC: RAD 15:25
PROVIDERS: PCP Internal Medicine; Visit Provider Podiatrist Foot & Ankle Surgery
DX: G57.61 Lesion of plantar nerve, right lower limb (principal)
CPT/HCPCS: 76882

== ENCOUNTER → 2022-10-15 14:12 | Outpatient (BNVA) | payer MEDICAID, SELFPAY | PROVIDERS: PCP Internal Medicine; Visit Provider Podiatrist Foot & Ankle Surgery | DX: G57.61 Lesion of plantar nerve, right lower limb (principal); E11.42 Type 2 diabetes mellitus with diabetic polyneuropathy; M21.621 Bunionette of right foot; M21.622 Bunionette of left foot; M20.41 Other hammer toe(s) (acquired), right foot; M20.42 Other hammer toe(s) (acquired), left foot; M21.41 Flat foot [pes planus] (acquired), right foot; M21.42 Flat foot [pes planus] (acquired), left foot; I73.9 Peripheral vascular disease, unspecified | CPT/HCPCS: 64455; J1100; J3301; J3490 ==

== ENCOUNTER 2022-10-19 09:12 | Outpatient (CLI) | payer MEDICAID, SELFPAY ==
--- NOTE | 2022-10-19 09:29 | CT_ITS ---
WS: [email or web address] CT NECK TECHNIQUE: Contrast-enhanced CT of the neck with coronal and sagittal reformatted images. CLINICAL INFORMATION: OTALGIA, LEFT EAR COMPARISON: DLP: 280.[address] scans at [facility] use at least one of these dose optimization techniques: automated e xposure control; mA and/or kV adjustment per patient size (includes targeted exams where dose is matc hed to clinical indication); or iterative reconstruction. FINDINGS: Mastoid air cells are well aerated. Middle ears are well aerated bilaterally. Partially visualized pa ranasal sinuses are well aerated. Normal posterior nasopharynx. Normal parapharyngeal fat. Parotid gl ands are normal. Normal submandibular glands. . No evidence of supraglottic or glottic mass. Normal s ubglottic airway. No cervical lymphadenopathy. Lung apices are well aerated. Secretions within the RIGHT vallecula. CT/CT neck w con* [id number] IMPRESSION: 1. Mastoid air cells well aerated bilaterally. Middle ears well aerated. 2. Normal posterior nasopharynx. 3. No other suspicious findings.
[2022-10-19] MEDS: iohexol 350 mg/mL 500 mL Btl (per mL) IV (10:01)
== END 2022-10-19 09:13 | disposition home or self-care (01) ==
LOC: RAD 09:15
PROVIDERS: PCP Internal Medicine; Visit Provider Otolaryngology
DX: H92.02 Otalgia, left ear (principal)
CPT/HCPCS: 70491; Q9967

== ENCOUNTER → 2022-11-01 10:50 | Outpatient (BNVA) | payer MEDICAID, SELFPAY | PROVIDERS: PCP Internal Medicine; Visit Provider Specialist | DX: M17.11 Unilateral primary osteoarthritis, right knee (principal); E66.01 Morbid (severe) obesity due to excess calories; Z68.43 Body mass index [BMI] 50.0-59.9, adult | CPT/HCPCS: 20610; J1100; J2795; J3301 ==

== ENCOUNTER → 2022-11-09 10:45 | Outpatient (BNVA) | payer MEDICAID, SELFPAY | PROVIDERS: PCP Internal Medicine; Visit Provider Internal Medicine | DX: E03.9 Hypothyroidism, unspecified (principal); E55.9 Vitamin D deficiency, unspecified; M81.0 Age-related osteoporosis without current pathological fracture; E78.2 Mixed hyperlipidemia; E11.42 Type 2 diabetes mellitus with diabetic polyneuropathy; E11.649 Type 2 diabetes mellitus with hypoglycemia without coma; E11.22 Type 2 diabetes mellitus with diabetic chronic kidney disease; N18.30 Chronic kidney disease, stage 3 unspecified; Z87.442 Personal history of urinary calculi; N30.90 Cystitis, unspecified without hematuria; E66.01 Morbid (severe) obesity due to excess calories; Z68.42 Body mass index [BMI] 45.0-49.9, adult; E16.0 Drug-induced hypoglycemia without coma; T38.3X5A Adverse effect of insulin and oral hypoglycemic [antidiabetic] drugs, initial encounter; Z79.890 Hormone replacement therapy; Z79.4 Long term (current) use of insulin | CPT/HCPCS: 80053; 80061; 82044; 82306; 83036; 84439; 84443; 99214 ==

== ENCOUNTER → 2022-11-13 13:05 | Outpatient (BNVA) | payer MEDICAID, SELFPAY | PROVIDERS: PCP Internal Medicine; Visit Provider Podiatrist Foot & Ankle Surgery | DX: Z79.4 Long term (current) use of insulin (principal); E11.42 Type 2 diabetes mellitus with diabetic polyneuropathy; M21.621 Bunionette of right foot; M21.622 Bunionette of left foot; M20.41 Other hammer toe(s) (acquired), right foot; M20.42 Other hammer toe(s) (acquired), left foot; M21.41 Flat foot [pes planus] (acquired), right foot; M21.42 Flat foot [pes planus] (acquired), left foot; I73.9 Peripheral vascular disease, unspecified; G57.61 Lesion of plantar nerve, right lower limb | CPT/HCPCS: 20600; 99214 ==

== ENCOUNTER 2022-11-26 09:20 | Outpatient (CLI) | payer MEDICAID, SELFPAY ==
--- NOTE | 2022-11-26 09:26 | MM_ITS ---
WS: [email or web address] BILATERAL SCREENING DIGITAL TOMOSYNTHESIS MAMMOGRAM WITH CAD HISTORY: SCREENING COMPARISON: 09/26/2021, 05/12/2020 Bilateral CC and MLO views with tomosynthesis and synthetic mammography submitted. Computer aided det ection analyzed. Breast composition: There are scattered areas of fibroglandular density. No suspicious masses, microc alcifications or architectural distortion. Benign scattered calcifications. MM/[place] [id number] IMPRESSION: BI-RADS: 2-Benign FOLLOW UP: 1 Year Follow-up
== END 2022-11-26 09:21 | disposition home or self-care (01) ==
PROVIDERS: PCP Internal Medicine; Visit Provider Internal Medicine
DX: Z12.31 Encounter for screening mammogram for malignant neoplasm of breast (principal)
CPT/HCPCS: 77063; 77067

== ENCOUNTER 2022-11-30 09:19 | Oncology outpatient (recurring) (ONCR) | payer MEDICAID, SELFPAY ==
[2022-11-30] MEDS: denosumab 60 mg SDV SUBCUT (10:55)
[2022-11-30 11:00] VITALS: BP 114/73; PULSE 73; RESP 18; TEMP 35.7; O2SAT 98
== END 2022-12-21 23:59 | disposition home or self-care (01) ==
PROVIDERS: PCP Internal Medicine; Visit Provider Internal Medicine
DX: M81.0 Age-related osteoporosis without current pathological fracture (principal)
CPT/HCPCS: 96401; J0897

== ENCOUNTER → 2023-01-02 11:56 | Outpatient (BNVA) | payer MEDICAID, SELFPAY | PROVIDERS: PCP Internal Medicine; Visit Provider Internal Medicine Cardiovascular Disease | DX: I12.9 Hypertensive chronic kidney disease with stage 1 through stage 4 chronic kidney disease, or unspecified chronic kidney disease (principal); E11.42 Type 2 diabetes mellitus with diabetic polyneuropathy; E11.22 Type 2 diabetes mellitus with diabetic chronic kidney disease; N18.30 Chronic kidney disease, stage 3 unspecified; E78.2 Mixed hyperlipidemia; E66.01 Morbid (severe) obesity due to excess calories; Z68.42 Body mass index [BMI] 45.0-49.9, adult; G47.33 Obstructive sleep apnea (adult) (pediatric); R00.0 Tachycardia, unspecified; Z79.4 Long term (current) use of insulin | CPT/HCPCS: 99214 ==

== ENCOUNTER → 2023-01-16 15:21 | Outpatient (BNVA) | payer MEDICAID, SELFPAY | PROVIDERS: PCP Internal Medicine; Visit Provider Specialist | DX: M17.11 Unilateral primary osteoarthritis, right knee; L30.9 Dermatitis, unspecified | CPT/HCPCS: 73560; 73565; 82565; 85025; 85651; 86140; 86200; 86431; 86705; 86706; 86709; 86803; 87340; 87641; 99213 ==

== ENCOUNTER → 2023-01-31 14:45 | Outpatient (BNVA) | payer MEDICAID, SELFPAY | PROVIDERS: PCP Internal Medicine; Visit Provider Specialist | DX: M17.0 Bilateral primary osteoarthritis of knee (principal); Z71.89 Other specified counseling | CPT/HCPCS: 20610; J1100; J2795; J3301 ==

== ENCOUNTER → 2023-02-12 11:21 | Outpatient (BNVA) | payer MEDICAID, SELFPAY | PROVIDERS: PCP Internal Medicine; Visit Provider Podiatrist Foot & Ankle Surgery | DX: E11.42 Type 2 diabetes mellitus with diabetic polyneuropathy (principal); M21.621 Bunionette of right foot; M21.622 Bunionette of left foot; M20.41 Other hammer toe(s) (acquired), right foot; M20.42 Other hammer toe(s) (acquired), left foot; M21.41 Flat foot [pes planus] (acquired), right foot; M21.42 Flat foot [pes planus] (acquired), left foot; I73.9 Peripheral vascular disease, unspecified; G57.61 Lesion of plantar nerve, right lower limb; Z79.4 Long term (current) use of insulin | CPT/HCPCS: 99213 ==

== ENCOUNTER → 2023-02-27 09:17 | Outpatient (BNVA) | payer MEDICAID, SELFPAY | PROVIDERS: PCP Internal Medicine; Visit Provider Internal Medicine | DX: E03.9 Hypothyroidism, unspecified (principal); M81.0 Age-related osteoporosis without current pathological fracture; E55.9 Vitamin D deficiency, unspecified; Z87.442 Personal history of urinary calculi; N30.90 Cystitis, unspecified without hematuria; E78.2 Mixed hyperlipidemia; E11.22 Type 2 diabetes mellitus with diabetic chronic kidney disease; N18.30 Chronic kidney disease, stage 3 unspecified; E66.01 Morbid (severe) obesity due to excess calories; Z68.42 Body mass index [BMI] 45.0-49.9, adult; E11.42 Type 2 diabetes mellitus with diabetic polyneuropathy; E16.0 Drug-induced hypoglycemia without coma; T38.3X5A Adverse effect of insulin and oral hypoglycemic [antidiabetic] drugs, initial encounter; E11.649 Type 2 diabetes mellitus with hypoglycemia without coma; Z79.4 Long term (current) use of insulin | CPT/HCPCS: 36415; 84439; 84443; 99214 ==

== ENCOUNTER → 2023-03-18 13:12 | Outpatient (BNVA) | payer MEDICAID, SELFPAY | PROVIDERS: PCP Internal Medicine; Visit Provider Specialist | DX: M12.811 Other specific arthropathies, not elsewhere classified, right shoulder; Z01.818 Encounter for other preprocedural examination; M25.511 Pain in right shoulder | CPT/HCPCS: 36415; 73030; 80053; 85651; 86140; 86160; 86162; 86200; 86235; 86255; 86376; 86431; 99214 ==

== ENCOUNTER → 2023-03-20 09:54 | Outpatient (BNVA) | payer MEDICAID, SELFPAY | PROVIDERS: PCP Internal Medicine; Visit Provider Podiatrist Foot & Ankle Surgery | DX: S99.921A Unspecified injury of right foot, initial encounter (principal); I73.9 Peripheral vascular disease, unspecified; E11.42 Type 2 diabetes mellitus with diabetic polyneuropathy; M21.621 Bunionette of right foot; M21.622 Bunionette of left foot; M20.41 Other hammer toe(s) (acquired), right foot; M20.42 Other hammer toe(s) (acquired), left foot; M21.41 Flat foot [pes planus] (acquired), right foot; M21.42 Flat foot [pes planus] (acquired), left foot; G57.61 Lesion of plantar nerve, right lower limb; S91.331A Puncture wound without foreign body, right foot, initial encounter; X58.XXXA Exposure to other specified factors, initial encounter; Z79.4 Long term (current) use of insulin | CPT/HCPCS: 73630; 99214 ==

== ENCOUNTER → 2023-03-25 14:05 | Outpatient (BNVA) | payer MEDICAID, SELFPAY | PROVIDERS: PCP Internal Medicine; Visit Provider Specialist | DX: G47.33 Obstructive sleep apnea (adult) (pediatric) (principal); R41.3 Other amnesia; R29.90 Unspecified symptoms and signs involving the nervous system | CPT/HCPCS: 96116; 99214; 99215 ==

== ENCOUNTER 2023-04-03 09:44 | Outpatient (CLI) | payer MEDICAID, SELFPAY ==
--- NOTE | 2023-04-03 09:49 | US_ITS ---
WS: [id number] ULTRASOUND SOFT TISSUES LEFT lateral chest wall. HISTORY: LYMPHADENOPATHY COMPARISON: None available. TECHNIQUE: 2-D and color Doppler imaging is submitted. Ultrasound directed to the LEFT lateral chest wall. There is no underlying abnormality identified. No mass. No distortion of the soft tissues. IMPRESSION: Negative ultrasound palpable area LEFT lateral chest wall.
== END 2023-04-03 09:45 | disposition home or self-care (01) ==
LOC: RAD 09:44
PROVIDERS: PCP Internal Medicine; Visit Provider Nurse Practitioner Family
DX: R59.1 Generalized enlarged lymph nodes (principal)
CPT/HCPCS: 76882

== ENCOUNTER → 2023-04-04 08:37 | Outpatient (BNVA) | payer MEDICAID, SELFPAY | PROVIDERS: PCP Internal Medicine; Visit Provider Podiatrist Foot & Ankle Surgery | DX: E11.42 Type 2 diabetes mellitus with diabetic polyneuropathy (principal); M21.621 Bunionette of right foot; M21.622 Bunionette of left foot; I73.9 Peripheral vascular disease, unspecified; G57.61 Lesion of plantar nerve, right lower limb; S91.331D Puncture wound without foreign body, right foot, subsequent encounter; W45.0XXD Nail entering through skin, subsequent encounter; Z79.4 Long term (current) use of insulin | CPT/HCPCS: 99213 ==

== ENCOUNTER 2023-04-16 12:52 | Outpatient (CLI) | payer MEDICAID, SELFPAY ==
--- NOTE | 2023-04-16 13:00 | MR_ITS ---
WS: [email or web address] MRI RIGHT SHOULDER NONCONTRAST TECHNIQUE: Sagittal T2, coronal T1, T2 and proton density imaging. Axial gradient PDE imaging. CLINICAL INFORMATION: right shoulder pain COMPARISON: MRI 10/26/2020 FINDINGS: Moderate degenerative arthritis AC joint with mild edema. Mild downsloping acromion. Small amount of fluid in the AC joint. Trace subacromial and subdeltoid fluid. Mild downsloping acromion with impingement distal supraspinatus. Mild tendinopathy distal supraspinat us. Small amount of subdeltoid fluid. Normal infraspinatus. Normal teres minor. Tendinopathy subscapularis tendon distally with partial intrasubstance tear with T2 signal normality. No tendon retraction. Biceps tendon appears intact within the bicipital groove. Mild degenerative fr aying of the glenoid labrum. Intra-articular biceps tendon appears intact. IMPRESSION: 1. Moderate degenerative arthritis AC joint with mild fluid and edema. 2. Mild downsloping acromion with impingement distal supraspinatus. Tendinopathy supraspinatus. 3. Thinning of the supraspinatus distally in the area of the previously described small intrasubstan ce bursal surface tear near the insertion. 4. Tendinopathy subscapularis with partial intrasubstance tear with T2 signal abnormality distally. No tendon retraction. 5. Biceps tendon appears intact within the bicipital groove. 6. Small amount of subacromial subdeltoid fluid.
== END 2023-04-16 12:53 | disposition home or self-care (01) ==
LOC: RAD 12:52
PROVIDERS: PCP Internal Medicine; Visit Provider Specialist
DX: M19.011 Primary osteoarthritis, right shoulder (principal)
CPT/HCPCS: 73221

== ENCOUNTER → 2023-04-23 12:47 | Outpatient (BNVA) | payer MEDICAID, SELFPAY | PROVIDERS: PCP Internal Medicine; Visit Provider Podiatrist Foot & Ankle Surgery | DX: G57.61 Lesion of plantar nerve, right lower limb (principal); I73.9 Peripheral vascular disease, unspecified; E11.42 Type 2 diabetes mellitus with diabetic polyneuropathy; Z79.4 Long term (current) use of insulin | CPT/HCPCS: 64455; J1100; J3301; J3490 ==

== ENCOUNTER → 2023-05-08 12:47 | Outpatient (BNVA) | payer MEDICAID, SELFPAY | PROVIDERS: PCP Internal Medicine; Visit Provider Specialist | DX: M12.811 Other specific arthropathies, not elsewhere classified, right shoulder (principal); Z09 Encounter for follow-up examination after completed treatment for conditions other than malignant neoplasm | CPT/HCPCS: 99214 ==

== ENCOUNTER → 2023-05-23 10:50 | Outpatient (BNVA) | payer MEDICAID, SELFPAY | PROVIDERS: PCP Internal Medicine; Visit Provider Specialist | DX: M17.0 Bilateral primary osteoarthritis of knee (principal); Z71.89 Other specified counseling | CPT/HCPCS: 20610; J1100; J2795; J3301 ==

== ENCOUNTER → 2023-05-29 09:53 | Outpatient (BNVA) | payer MEDICAID, SELFPAY | PROVIDERS: PCP Internal Medicine; Visit Provider Internal Medicine | DX: E03.9 Hypothyroidism, unspecified (principal); M81.0 Age-related osteoporosis without current pathological fracture; E55.9 Vitamin D deficiency, unspecified; Z87.442 Personal history of urinary calculi; N30.90 Cystitis, unspecified without hematuria; E78.2 Mixed hyperlipidemia; E11.22 Type 2 diabetes mellitus with diabetic chronic kidney disease; N18.30 Chronic kidney disease, stage 3 unspecified; E66.01 Morbid (severe) obesity due to excess calories; Z68.42 Body mass index [BMI] 45.0-49.9, adult; E11.42 Type 2 diabetes mellitus with diabetic polyneuropathy; E16.0 Drug-induced hypoglycemia without coma; T38.3X5A Adverse effect of insulin and oral hypoglycemic [antidiabetic] drugs, initial encounter; B37.9 Candidiasis, unspecified; E11.649 Type 2 diabetes mellitus with hypoglycemia without coma; X58.XXXA Exposure to other specified factors, initial encounter; Z79.890 Hormone replacement therapy; Z79.4 Long term (current) use of insulin; Z79.85 Long-term (current) use of injectable non-insulin antidiabetic drugs | CPT/HCPCS: 99214 ==

== ENCOUNTER 2023-05-29 12:10 | Outpatient (CLI) | payer MEDICAID, SELFPAY ==
[2023-05-29 13:42] LABS: 25 Hydroxy Vitamin D 26 ng/mL (30-100)
== END 2023-05-29 12:11 | disposition home or self-care (01) ==
LOC: LAB 12:11
PROVIDERS: PCP Internal Medicine; Visit Provider Internal Medicine
DX: E55.9 Vitamin D deficiency, unspecified (principal)
CPT/HCPCS: 36415; 82306

== ENCOUNTER 2023-05-30 08:27 | Outpatient (CLI) | payer MEDICAID, SELFPAY ==
--- NOTE | 2023-05-30 08:44 | MR_ITS ---
WS: [email or web address] MRI HEAD WITHOUT CONTRAST TECHNIQUE: Sagittal T1, T2 axial, T2 axial FLAIR, axial and coronal T1 images, axial susceptibility w eighted imaging, axial diffusion weighted images, and coronal T2 images were obtained. CLINICAL INFORMATION: DIZZINESS, HEAD NECK SYMPTOMS COMPARISON: MRI FINDINGS: Some images degraded by patient motion. No evidence of restricted diffusion to suggest acute ischemia. No suspicious intracranial signal abno rmalities considering significant motion artifact. Mild parenchymal volume loss. Cerebellar tonsillar ectopia appears unchanged. No hydrocephalus. Fourth ventricle appears patent. Normal vascular flow v oids at the skull base. No extra-axial fluid collections. Paranasal sinuses are well aerated. Normal posterior nasopharynx and parapharyngeal fat. Normal optic chiasm and pituitary infundibulum. Mild symmetric atrophy temporal lobes to be Edwards formations. IMPRESSION: Some images significantly graded by motion artifact. 1. No evidence of restricted diffusion to suggest acute ischemia. Ventricular system and basal ciste rns are patent. 2. Mild parenchymal volume loss. 3. No suspicious intracranial signal abnormalities although study is limited due to significant cecilio on artifact 4. No hemosiderin on the susceptibly weighted images. Normal optic chiasm and pituitary infundibulum . 5. Mild symmetric atrophy temporal lobes and hippocampal formations. 6. Stable cerebellar tonsillar ectopia.
== END 2023-05-30 08:28 | disposition home or self-care (01) ==
LOC: RAD 08:27
PROVIDERS: PCP Internal Medicine; Visit Provider Nurse Practitioner Family
DX: R42 Dizziness and giddiness (principal); R68.89 Other general symptoms and signs
CPT/HCPCS: 70551

== ENCOUNTER 2023-05-31 08:41 | Oncology outpatient (recurring) (ONCR) | payer MEDICAID, SELFPAY ==
[2023-05-31 09:48] VITALS: BP 118/76; PULSE 75; RESP 16; TEMP 35.9; O2SAT 96
[2023-05-31] MEDS: denosumab 60 mg SDV SUBCUT (09:49)
[2023-05-31 09:53] VITALS: BP 118/76; PULSE 75; RESP 16; TEMP 36.1; O2SAT 96
== END 2023-06-23 23:59 | disposition home or self-care (01) ==
LOC: ONCMED 08:42
PROVIDERS: PCP Internal Medicine; Visit Provider Internal Medicine
DX: M81.0 Age-related osteoporosis without current pathological fracture (principal)
CPT/HCPCS: 96372; J0897

== ENCOUNTER → 2023-08-08 08:17 | Outpatient (BNVA) | payer MEDICAID, SELFPAY | PROVIDERS: PCP Internal Medicine; Referring Provider Nurse Practitioner Family; Visit Provider Surgery | DX: K21.9 Gastro-esophageal reflux disease without esophagitis; R19.5 Other fecal abnormalities; E11.22 Type 2 diabetes mellitus with diabetic chronic kidney disease; G57.61 Lesion of plantar nerve, right lower limb; M20.41 Other hammer toe(s) (acquired), right foot; M20.42 Other hammer toe(s) (acquired), left foot; M21.621 Bunionette of right foot; M21.622 Bunionette of left foot; I73.9 Peripheral vascular disease, unspecified; E11.42 Type 2 diabetes mellitus with diabetic polyneuropathy | CPT/HCPCS: 99204; 99213; 99214 ==

== ENCOUNTER → 2023-08-14 14:22 | Outpatient (BNVA) | payer MEDICAID, SELFPAY | PROVIDERS: PCP Internal Medicine; Visit Provider Dermatology | DX: L30.9 Dermatitis, unspecified (principal); L73.2 Hidradenitis suppurativa; L21.8 Other seborrheic dermatitis; L28.1 Prurigo nodularis; L98.1 Factitial dermatitis; L81.0 Postinflammatory hyperpigmentation; Z85.820 Personal history of malignant melanoma of skin | CPT/HCPCS: 11104; 99214 ==

== ENCOUNTER → 2023-08-16 10:09 | Outpatient (BNVA) | payer MEDICAID, SELFPAY | PROVIDERS: PCP Internal Medicine; Visit Provider Specialist | DX: M17.0 Bilateral primary osteoarthritis of knee (principal) | CPT/HCPCS: 20610; J1100; J2795; J3301 ==

== ENCOUNTER → 2023-08-26 10:52 | Outpatient (BNVA) | payer MEDICAID, SELFPAY | PROVIDERS: PCP Internal Medicine; Visit Provider Dermatology | DX: Z48.02 Encounter for removal of sutures (principal) | CPT/HCPCS: 99212 ==

== ENCOUNTER → 2023-09-05 10:32 | Outpatient (BNVA) | payer OTHER, MEDICAID, SELFPAY | PROVIDERS: PCP Internal Medicine; Visit Provider Internal Medicine Rheumatology | DX: Z79.899 Other long term (current) drug therapy (principal); M19.90 Unspecified osteoarthritis, unspecified site; L40.50 Arthropathic psoriasis, unspecified; L40.0 Psoriasis vulgaris; Z71.85 Encounter for immunization safety counseling; M81.0 Age-related osteoporosis without current pathological fracture | CPT/HCPCS: 36415; 80076; 82306; 82565; 83520; 85025; 85651; 86140; 86480; 86704; 86803; 86812; 87340; 99204 ==

== ENCOUNTER 2023-09-25 06:10 | Day surgery (SDC) | payer MEDICAID, SELFPAY ==
[2023-09-25 06:30] VITALS: BP 135/89; PULSE 97; RESP 18; TEMP 35.8; O2SAT 97; BMI 51.7
[2023-09-25] MEDS: sodium chloride 0.9% 1,000 ML 30 ML IV (06:38)
[2023-09-25 06:41] LABS: Glucose Point of Care 169 mg/dL (70-110)
--- NOTE | 2023-09-25 06:47 | ANES.PREANE2 ---
Pre-Anesthetic Assessment Height/Weight: Height 1.65 m Weight 141.067 kg Temp Pulse Resp BP Pulse Ox O2 Del Method 96.5 F L 97 18 135/89 97 Room Air 09/25/23 06:30 09/25/23 06:30 09/25/23 06:30 09/25/23 06:30 09/25/23 06:30 09/25/23 06:30 Operation Date: 09/25/23 07:15 Proposed Procedures p [id number] egd [id number] colon G0105 screen colon H risk Z12.11,K21.9,R19.5(Not Applicable) - DO rafael Vega Colonoscopy(Not Applicable) - Elliott Edwards DO Familial anesthetic complications: None Was Beta Mak taken within 24 hours: N/A Was Clonidine taken within 24 hours: N/A Last intake: Intake Last Liquid Date 09/24/23 Last Liquid Time 23:55 Last Solid Date 09/23/23 Last Solid Time 20:00 Social No alcohol and No tobacco Exam alert, oriented x 3, clear to auscultation bilaterally and regular rate & rhythm Airway Mallampati: Class IV Dentition: full GI Gastroesophageal Reflux Disease Metabolic Diabetes Mellitus and Morbid Obesity Anesthetic Plan ASA status: 3 Anesthesia: MAC Risk of > 500 ml blood loss (7ml/kg in children): No Medications/Allergies Home Medications Medication Instructions Recorded Confirmed Last Taken Type allopurinol 300 mg tablet 300 mg PO BEDTIME 07/07/19 09/25/23 09/24/23 History denosumab 60 mg/mL subcutaneous 60 mg SUBCUT .COMPLEX 07/07/19 09/23/23 09/23/23 History syringe (Prolia) gabapentin 300 mg capsule 600 mg PO TID 07/07/19 09/25/23 09/24/23 History insulin aspart U-100 100 unit/mL 50 unit SUBCUT BID 07/07/19 09/25/23 09/24/23 History (3 mL) subcutaneous pen (Novolog FlexPen U-100 Insulin aspart) insulin lispro 100 unit/mL 15 unit SUBCUT TIDWM 07/07/19 09/25/23 09/24/23 History subcutaneous solution (Humalog U-100 Insulin) levothyroxine 100 mcg tablet 100 mcg PO DAILY 07/07/19 09/25/23 09/24/23 History (Synthroid) tamsulosin 0.4 mg capsule (Flomax) 0.4 mg PO BID 07/24/19 09/25/23 09/24/23 History levocetirizine 5 mg tablet (Xyzal) 5 mg PO DAILY 12/09/19 09/25/23 09/24/23 History cyclobenzaprine 10 mg tablet 10 mg PO TID PRN muscle spasm #60 12/20/20 09/25/23 09/24/23 Rx tabs albuterol sulfate 90 mcg/actuation 2 puff inhalation QID PRN 06/03/21 09/23/23 09/23/23 History aerosol inhaler Shortness Of Breath cetirizine 10 mg tablet 10 mg PO DAILY PRN Allergy Symptoms 06/03/21 09/23/23 09/23/23 History docusate sodium 100 mg capsule 300 mg PO BEDTIME 06/03/21 09/25/23 09/24/23 History spironolactone 100 mg tablet 100 mg PO DAILY 06/03/21 09/25/23 09/24/23 History magnesium oxide 400 mg PO DAILY #90 tabs 11/27/21 09/25/23 09/24/23 Rx aspirin 81 mg chewable tablet 81 mg PO DAILY 11/29/21 09/25/23 09/24/23 History ibuprofen 200 mg tablet 200 mg PO Q6H PRN Pain 11/29/21 09/23/23 09/23/23 History Diabetic Shoes with 3 inserts #1 ea 12/13/21 09/25/23 09/24/23 Rx Diabetic Shoes with Inserts #1 ea 12/13/21 09/25/23 09/24/23 Rx lactobacillus combination no.4 3 3,000 mmu cells PO DAILY 02/05/22 09/25/23 09/24/23 History billion cell capsule (Probiotic) acyclovir 400 mg tablet 400 mg PO DAILY 05/31/22 09/25/23 09/24/23 History hydrochlorothiazide 25 mg tablet 25 mg PO QAM Blood Pressure 05/31/22 09/25/23 09/24/23 History mupirocin 2 % topical ointment 1 applic topical BID #22 grams 08/14/22 09/25/23 09/24/23 Rx triamcinolone acetonide 0.1 % 1 applic topical DAILY #453.6 grams 08/14/22 09/25/23 09/24/23 Rx topical cream ASO to left #1 ea 09/11/22 09/25/23 09/24/23 Rx blood-glucose sensor ([employer] G6 #9 ea 12/04/22 09/25/23 09/24/23 Rx Sensor device) metoprolol tartrate 25 mg tablet 25 mg PO BID #180 tabs 07/18/23 09/25/23 09/24/23 Rx 4E Diabetic shoes with 3 pairs of #1 ea 08/08/23 09/25/23 09/24/23 Rx inserts pantoprazole 40 mg tablet,delayed 40 mg PO BID 6 weeks #84 tabs 08/08/23 09/25/23 09/24/23 Rx release (Protonix) dulaglutide 3 mg/0.5 mL See Rx Instructions .Route 08/20/23 09/23/23 09/23/23 Rx subcutaneous pen injector .COMPLEX #2 mL (Trulicity) leflunomide 20 mg tablet 20 mg PO DAILY #30 tabs 09/05/23 09/25/23 09/24/23 Rx tramadol 50 mg tablet 50 mg PO TID PRN pain (scale score 09/05/23 09/23/23 09/23/23 Rx 7-10) #60 tabs naloxone 4 mg/actuation nasal 4 mg intranasal Q2M PRN 09/23/23 09/23/23 09/23/23 History spray (Narcan) oversedation venlafaxine 150 mg 150 mg PO DAILY 09/25/23 09/25/23 09/24/23 History capsule,extended release 24 hr venlafaxine 75 mg capsule,extended 75 mg PO DAILY 09/25/23 09/25/23 09/24/23 History release 24 hr Allergies Allergy/AdvReac Type Severity Reaction Status Date / Time hydromorphone Allergy Severe ADR-Headach Verified 09/23/23 08:28 e adhesive Allergy Intermediate ALGY-Bliste Verified 09/23/23 08:28 r lactose Allergy Mild sick to Verified 09/23/23 08:28 stomach amoxicillin [From Augmentin] Allergy vomiting/ra Verified 09/23/23 08:28 sh clavulanic acid Allergy vomiting/ra Verified 09/23/23 08:28 [From Augmentin] sh lactase [From Dairy Aid] Allergy sick to Verified 09/23/23 08:28 stomach latex Allergy rash Verified 09/23/23 08:28 Penicillins Allergy rash/vomiti Verified 09/23/23 08:28 ng Sulfa (Sulfonamide Allergy ADR-Heartbu Verified 09/23/23 08:28 Antibiotics) rn rosuvastatin [From Crestor] AdvReac ADV-Weaknes Verified 09/23/23 08:28 s simvastatin [From Zocor] AdvReac ADV-Weaknes Verified 09/23/23 08:28 s Current Medications Generic Name Dose Route Start Last Admin Trade Name Freq PRN Reason Stop Dose Admin Sodium Chloride 1,000 mls @ 30 mls/hr 09/25/23 06:15 09/25/23 06:38 Sodium Chloride 0.9% IV 09/26/23 06:14 30 mls/hr .Q24H ADRIAN Administration PFSH Anesthesia Medical History (Updated 09/05/23 @ 11:50 by Rajesh Rosado MD) Immunization counseling High risk medication use Plaque psoriasis Psoriatic arthritis Anxiety and depression Psoriasis Low vitamin D level Neuropathy Muscle spasms of both lower extremities Urolithiasis History of calcium-based stones with metabolic evaluation showing increased uric acid, low volume, marginal oxalate. Psychiatric care Yeast vaginitis Incomplete bladder emptying Opioid contract exists Renal calculi Facet arthropathy, lumbar Chronic low back pain Excoriation (skin-picking) disorder Major depressive disorder, recurrent severe without psychotic features Obstructive sleep apnea Dyslipidemia Hypertension Diabetes Hypothyroid Tachycardia Melanoma Surgical History (Updated 09/05/23 @ 11:49 by Rajesh Rosado MD) History of removal of skin mole was cancerous and had clean margins Hx of section Hx of lithotripsy Hx of lumpectomy History of tonsillectomy and adenoidectomy History of cholecystectomy History of appendectomy H/O: hysterectomy Family History Grandmother Cancer LUNG CANCER Diabetes Heart disease Bleeding disorder Clotting disorder Lung disease Dementia Breast cancer maternal Grandfather Cancer PROSTATE CANCER Diabetes Chronic kidney disease (CKD) Dementia Father Diabetes Hypertension Mother Lung disease COPD Hypertension Denies family history of Suicide Stroke Social History Smoking and tobacco/nicotine status: never used tobacco/nicotine Alcohol intake: never Substance/Drug Use: never Data Anesthesia Cardiac Studies: Cardiac Event Monitor 05/31/22
--- NOTE | 2023-09-25 07:29 | PM.HP ---
Providers/Chief Complaint Primary Care Provider: Laney Smith MD Chief Complaint: Z12.11, K21.9, r19.5 History of Present Illness Santiago Arndt is a 53 year old female Review of Systems General: Reports: 10 or more systems reviewed and unremarkable except in HPI and below Medications/Allergies Home Medications Medication Instructions Recorded Confirmed Last Taken Type allopurinol 300 mg tablet 300 mg PO BEDTIME 07/07/19 09/25/23 09/24/23 History denosumab 60 mg/mL subcutaneous 60 mg SUBCUT .COMPLEX 07/07/19 09/23/23 09/23/23 History syringe (Prolia) gabapentin 300 mg capsule 600 mg PO TID 07/07/19 09/25/23 09/24/23 History insulin aspart U-100 100 unit/mL 50 unit SUBCUT BID 07/07/19 09/25/23 09/24/23 History (3 mL) subcutaneous pen (Novolog FlexPen U-100 Insulin aspart) insulin lispro 100 unit/mL 15 unit SUBCUT TIDWM 07/07/19 09/25/23 09/24/23 History subcutaneous solution (Humalog U-100 Insulin) levothyroxine 100 mcg tablet 100 mcg PO DAILY 07/07/19 09/25/23 09/24/23 History (Synthroid) tamsulosin 0.4 mg capsule (Flomax) 0.4 mg PO BID 07/24/19 09/25/23 09/24/23 History levocetirizine 5 mg tablet (Xyzal) 5 mg PO DAILY 12/09/19 09/25/23 09/24/23 History cyclobenzaprine 10 mg tablet 10 mg PO TID PRN muscle spasm #60 12/20/20 09/25/23 09/24/23 Rx tabs albuterol sulfate 90 mcg/actuation 2 puff inhalation QID PRN 06/03/21 09/23/23 09/23/23 History aerosol inhaler Shortness Of Breath cetirizine 10 mg tablet 10 mg PO DAILY PRN Allergy Symptoms 06/03/21 09/23/23 09/23/23 History docusate sodium 100 mg capsule 300 mg PO BEDTIME 06/03/21 09/25/23 09/24/23 History spironolactone 100 mg tablet 100 mg PO DAILY 06/03/21 09/25/23 09/24/23 History magnesium oxide 400 mg PO DAILY #90 tabs 11/27/21 09/25/23 09/24/23 Rx aspirin 81 mg chewable tablet 81 mg PO DAILY 11/29/21 09/25/23 09/24/23 History ibuprofen 200 mg tablet 200 mg PO Q6H PRN Pain 11/29/21 09/23/23 09/23/23 History Diabetic Shoes with 3 inserts #1 ea 12/13/21 09/25/23 09/24/23 Rx Diabetic Shoes with Inserts #1 ea 12/13/21 09/25/23 09/24/23 Rx lactobacillus combination no.4 3 3,000 mmu cells PO DAILY 02/05/22 09/25/23 09/24/23 History billion cell capsule (Probiotic) acyclovir 400 mg tablet 400 mg PO DAILY 05/31/22 09/25/23 09/24/23 History hydrochlorothiazide 25 mg tablet 25 mg PO QAM Blood Pressure 05/31/22 09/25/23 09/24/23 History mupirocin 2 % topical ointment 1 applic topical BID #22 grams 08/14/22 09/25/23 09/24/23 Rx triamcinolone acetonide 0.1 % 1 applic topical DAILY #453.6 grams 08/14/22 09/25/23 09/24/23 Rx topical cream ASO to left #1 ea 09/11/22 09/25/23 09/24/23 Rx blood-glucose sensor ([employer] G6 #9 ea 12/04/22 09/25/23 09/24/23 Rx Sensor device) metoprolol tartrate 25 mg tablet 25 mg PO BID #180 tabs 07/18/23 09/25/23 09/24/23 Rx 4E Diabetic shoes with 3 pairs of #1 ea 08/08/23 09/25/23 09/24/23 Rx inserts pantoprazole 40 mg tablet,delayed 40 mg PO BID 6 weeks #84 tabs 08/08/23 09/25/23 09/24/23 Rx release (Protonix) dulaglutide 3 mg/0.5 mL See Rx Instructions .Route 08/20/23 09/23/23 09/23/23 Rx subcutaneous pen injector .COMPLEX #2 mL (Trulicity) leflunomide 20 mg tablet 20 mg PO DAILY #30 tabs 09/05/23 09/25/23 09/24/23 Rx tramadol 50 mg tablet 50 mg PO TID PRN pain (scale score 09/05/23 09/23/23 09/23/23 Rx 7-10) #60 tabs naloxone 4 mg/actuation nasal 4 mg intranasal Q2M PRN 09/23/23 09/23/23 09/23/23 History spray (Narcan) oversedation venlafaxine 150 mg 150 mg PO DAILY 09/25/23 09/25/23 09/24/23 History capsule,extended release 24 hr venlafaxine 75 mg capsule,extended 75 mg PO DAILY 09/25/23 09/25/23 09/24/23 History release 24 hr Allergies Allergy/AdvReac Type Severity Reaction Status Date / Time hydromorphone Allergy Severe ADR-Headach Verified 09/23/23 08:28 e adhesive Allergy Intermediate ALGY-Bliste Verified 09/23/23 08:28 r lactose Allergy Mild sick to Verified 09/23/23 08:28 stomach amoxicillin [From Augmentin] Allergy vomiting/ra Verified 09/23/23 08:28 sh clavulanic acid Allergy vomiting/ra Verified 09/23/23 08:28 [From Augmentin] sh lactase [From Dairy Aid] Allergy sick to Verified 09/23/23 08:28 stomach latex Allergy rash Verified 09/23/23 08:28 Penicillins Allergy rash/vomiti Verified 09/23/23 08:28 ng Sulfa (Sulfonamide Allergy ADR-Heartbu Verified 09/23/23 08:28 Antibiotics) rn rosuvastatin [From Crestor] AdvReac ADV-Weaknes Verified 09/23/23 08:28 s simvastatin [From Zocor] AdvReac ADV-Weaknes Verified 09/23/23 08:28 s PFSH Acute PFSH: Medical History (Updated 09/25/23 @ 07:30 by Elliott Edwards DO) Immunization counseling High risk medication use Plaque psoriasis Psoriatic arthritis Anxiety and depression Psoriasis Low vitamin D level Neuropathy Muscle spasms of both lower extremities Urolithiasis History of calcium-based stones with metabolic evaluation showing increased uric acid, low volume, marginal oxalate. Psychiatric care Yeast vaginitis Incomplete bladder emptying Opioid contract exists Renal calculi Facet arthropathy, lumbar Chronic low back pain Excoriation (skin-picking) disorder Major depressive disorder, recurrent severe without psychotic features Obstructive sleep apnea Dyslipidemia Hypertension Diabetes Hypothyroid Tachycardia Melanoma Surgical History (Updated 09/05/23 @ 11:49 by Rajesh Rosado MD) History of removal of skin mole was cancerous and had clean margins Hx of section Hx of lithotripsy Hx of lumpectomy History of tonsillectomy and adenoidectomy History of cholecystectomy History of appendectomy H/O: hysterectomy Family History Grandmother Cancer LUNG CANCER Diabetes Heart disease Bleeding disorder Clotting disorder Lung disease Dementia Breast cancer maternal Grandfather Cancer PROSTATE CANCER Diabetes Chronic kidney disease (CKD) Dementia Father Diabetes Hypertension Mother Lung disease COPD Hypertension Denies family history of Suicide Stroke Social History Smoking and tobacco/nicotine status: never used tobacco/nicotine Alcohol intake: never Substance/Drug Use: never Vitals/I&O/Wt Last Vital Signs Temp 96.5 F L 09/25/23 06:30 Pulse 97 09/25/23 06:30 Resp 18 09/25/23 06:30 BP 135/89 09/25/23 06:30 Pulse Ox 97 09/25/23 06:30 O2 Del Method Room Air 09/25/23 06:30 Weight last 48 hrs Weight 311 lb A&P Assessment and plan (1) Positive colorectal cancer screening using Cologuard test: (2) GERD (gastroesophageal reflux disease): Plan EGD and colonoscopy Attestations Medical Necessity Statement*: Home Coding Level of Care Code Acute Code for Chg Fwd Diagnoses Positive colorectal cancer screening using Cologuard test R19.5 GERD (gastroesophageal reflux disease) K21.9
[2023-09-25 08:07] VITALS: BP 128/75; PULSE 92; RESP 16; TEMP 36.1; O2SAT 93
[2023-09-25 08:20] VITALS: BP 126/73; PULSE 72; RESP 16; O2SAT 96
--- NOTE | 2023-09-25 09:09 | PC.NURSE ---
Minimal rectal bleeding noted in recovery while using restroom. Dr Edwards notified. Stated some bleeding is to be expected for 2-4 days. Pt notified if significant increase in bleeding, come to ER.
--- NOTE | 2023-09-25 10:04 | ANE.PACU2 ---
Inpatient post-anesthesia follow up: Airway intact: Yes Vital signs: Temperature 97.0 F Pulse Rate 72 Respiratory Rate 16 Blood Pressure 126/73 Pulse Oximetry 96 Oxygen Delivery Me thod Room Air Oxygen Flow Rate Fraction of Inspir ed Oxygen Hydration adequate: Yes Nausea and vomiting: No Pain level: 1 Mental status: Baseline
== END 2023-09-25 09:05 | disposition home or self-care (01) ==
PROVIDERS: PCP Internal Medicine; Visit Provider Surgery
PROC: 0DJ08ZZ Inspection of Upper Intestinal Tract, Via Natural or Artificial Opening Endoscopic (ICD-10-PCS; CPT 43235; principal; 2023-09-25 07:15)
PROC: 0DJD8ZZ Inspection of Lower Intestinal Tract, Via Natural or Artificial Opening Endoscopic (ICD-10-PCS; CPT 45378; 2023-09-25 07:15)
DX: Z12.11 Encounter for screening for malignant neoplasm of colon (principal); K21.9 Gastro-esophageal reflux disease without esophagitis; D12.4 Benign neoplasm of descending colon; D12.3 Benign neoplasm of transverse colon; K64.8 Other hemorrhoids; K29.50 Unspecified chronic gastritis without bleeding; G47.33 Obstructive sleep apnea (adult) (pediatric); E78.5 Hyperlipidemia, unspecified; E11.9 Type 2 diabetes mellitus without complications; E03.9 Hypothyroidism, unspecified; K44.9 Diaphragmatic hernia without obstruction or gangrene; E66.01 Morbid (severe) obesity due to excess calories; Z68.43 Body mass index [BMI] 50.0-59.9, adult; Z79.4 Long term (current) use of insulin
CPT/HCPCS: 36416; 43239; 45385; 82962; 88305; 88342; J2704; J7030

== ENCOUNTER → 2023-09-26 14:18 | Outpatient (BNVA) | payer OTHER, MEDICAID, SELFPAY | PROVIDERS: PCP Internal Medicine; Visit Provider Specialist | DX: R29.90 Unspecified symptoms and signs involving the nervous system (principal); B02.29 Other postherpetic nervous system involvement; M54.81 Occipital neuralgia | CPT/HCPCS: 99213; 99214 ==

== ENCOUNTER → 2023-10-03 07:45 | Outpatient (BNVA) | payer MEDICAID, SELFPAY | PROVIDERS: PCP Internal Medicine; Visit Provider Podiatrist Foot & Ankle Surgery | DX: G57.61 Lesion of plantar nerve, right lower limb (principal); I73.9 Peripheral vascular disease, unspecified; E11.42 Type 2 diabetes mellitus with diabetic polyneuropathy; Z79.4 Long term (current) use of insulin | CPT/HCPCS: 64455; J1100; J3301; J3490 ==

== ENCOUNTER → 2023-10-21 09:55 | Outpatient (BNVA) | payer MEDICAID, SELFPAY | PROVIDERS: PCP Internal Medicine; Visit Provider Surgery | DX: Z09 Encounter for follow-up examination after completed treatment for conditions other than malignant neoplasm (principal); Q40.2 Other specified congenital malformations of stomach; D37.4 Neoplasm of uncertain behavior of colon | CPT/HCPCS: 99214 ==

== ENCOUNTER 2023-10-22 10:01 | Outpatient (CLI) | payer MEDICAID, SELFPAY ==
--- NOTE | 2023-10-22 10:06 | XR_ITS ---
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 No periosteal reaction or bony erosion. Mild subluxations of the PIP joints of the second through the fourth toes. Joint spaces of the forefoot, midfoot, and hindfoot are intact and relatively well preserved. Moderate calcaneal anterior plantar enthesophyte. XR/XR foot RT min 3V* [id number] IMPRESSION: Mild toe subluxations. Calcaneal enthesophyte.
--- NOTE | 2023-10-22 10:06 | XR_ITS ---
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 No erosion or periosteal reaction. The joint spaces of the right hand are intact and relatively well preserved. No soft tissue abnormality. XR/XR hand RT min 3V* [id number] IMPRESSION: No significant abnormality.
--- NOTE | 2023-10-22 10:06 | XR_ITS ---
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 No periosteal reaction or bone erosion. Joint spaces of the forefoot, midfoot, and hindfoot are intact and relatively well preserved. Moderate calcaneal anterior plantar enthesophyte. No soft tissue abnormality. XR/XR foot LT min 3V* [id number] IMPRESSION: Calcaneal enthesophyte.
--- NOTE | 2023-10-22 10:06 | XR_ITS ---
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 No periosteal reaction or bone erosion. The joint spaces of the left hand are intact and relatively well preserved. No soft tissue abnormality. XR/XR hand LT min 3V* [id number] IMPRESSION: No significant abnormality.
--- NOTE | 2023-10-22 10:25 | XRR_ITS ---
PROCEDURE INFORMATION: Exam: XR Chest Exam date and time: 10/22/2023 10:35 AM Age: 53 years old Clinical indication: Cough; Prior surgery; Surgery date: 6+ months; Surgery type: Gallbladder TECHNIQUE: Imaging protocol: Radiologic exam of the chest. Views: 2 views. COMPARISON: 1. CR XR chest 1V portable [id number] 06/03/2021 7:30 AM 2. CR XR chest 2V* [id number] 08/03/2017 9:19 AM 3. CR XR chest 2V* [id number] 03/14/2017 12:07 PM FINDINGS: Tubes, catheters and devices: Clips over abdomen. Lungs: Slight patchy infiltrates and/or atelectasis left lung base, right perihilar mid to upper outer right lung field. Pleural spaces: No pneumothorax and no pleural effusion seen. Heart/Mediastinum: Heart size appears within normal. Bones/joints: Mild curvature, degenerative changes spine. XR/XR chest 2V* [id number] IMPRESSION: Slight patchy opacities, infiltrates, atelectasis over portions of lungs bilaterally.
[2023-10-22 10:47] LABS: Estmated Average Glucose 148; Hemoglobin A1C 6.8 % (4.0-6.0)
[2023-10-22 10:58] LABS: Alanine Aminotransferase 22 U/L (0-33); Albumin Level 3.9 g/dL (3.5-5.2); Alkaline Phosphatase 91 U/L (35-105); Anion Gap 12.5 (5-19); Aspartate Amino Transferase 22 U/L (0-32); Blood Urea Nitrogen 16 mg/dL (6-20); Calcium 8.4 mg/dL (8.5-10.5); Carbon Dioxide 27 mmol/L (22-29); Chloride 101 mmol/L (98-107); Chol HDL Ratio 4.49 mg/dL (0.0-4.40); Cholesterol 202 mg/dL (0-200); Free T4 Free Thyroxine 0.95 ng/dL (0.82-1.77); Globulin 3.2 g/dL (1.3-4.6); Glomerular Filtration Rate 65.8 mL/min (90-130); Glucose 174 mg/dL (65-115); HDL Cholesterol 45 mg/dL (60-100); LDL Cholesterol Calculated 96 mg/dL (50-129); LDL HDL Ratio 2.13 RATIO (0.00-3.22); Osmolality Calculated 289 mOsm/kg (285-295); Potassium 3.5 mmol/L (3.5-5.1); Sodium 137 mmol/L (136-145); Thyroid Stimulating Hormone 2.85 uIU/mL (0.27-4.20); Total Bilirubin 0.2 mg/dL (0.15-1.2); Total Protein 7.1 g/dL (6.6-8.7); Triglycerides 305 mg/dL (0-150)
[2023-10-22 11:02] LABS: Creatinine Urine, Random 74 mg/dL (28-217); Microalbum Creatinine Ratio Ur 14 mg/dL (0-20); Microalbumin Random Urine 1 ug/dL (0-20)
[2023-10-22 11:30] LABS: 25 Hydroxy Vitamin D 37 ng/mL (30-100)
== END 2023-10-22 10:02 | disposition home or self-care (01) ==
LOC: RAD 10:04
PROVIDERS: Internal Medicine; PCP Internal Medicine; Visit Provider Internal Medicine
DX: R05.8 Other specified cough (principal); M19.90 Unspecified osteoarthritis, unspecified site; Z79.899 Other long term (current) drug therapy; E16.0 Drug-induced hypoglycemia without coma; T38.3X5A Adverse effect of insulin and oral hypoglycemic [antidiabetic] drugs, initial encounter; E11.42 Type 2 diabetes mellitus with diabetic polyneuropathy; E78.2 Mixed hyperlipidemia; E03.9 Hypothyroidism, unspecified; J98.11 Atelectasis; M77.32 Calcaneal spur, left foot; M77.31 Calcaneal spur, right foot; E55.9 Vitamin D deficiency, unspecified; M81.0 Age-related osteoporosis without current pathological fracture; Z87.442 Personal history of urinary calculi; N30.90 Cystitis, unspecified without hematuria; Z79.890 Hormone replacement therapy; E11.22 Type 2 diabetes mellitus with diabetic chronic kidney disease; N18.30 Chronic kidney disease, stage 3 unspecified; E66.01 Morbid (severe) obesity due to excess calories; Z68.42 Body mass index [BMI] 45.0-49.9, adult; Z79.4 Long term (current) use of insulin
CPT/HCPCS: 36415; 71046; 73130; 73630; 80053; 80061; 82044; 82306; 83036; 84439; 84443; 99214

== ENCOUNTER 2023-10-29 07:03 | Outpatient (CLI) | payer MEDICAID, SELFPAY ==
--- NOTE | 2023-10-29 07:12 | MR_ITS ---
WS: [id number] MRI HEAD WITHOUT CONTRAST TECHNIQUE: Sagittal T1, T2 axial, T2 axial FLAIR, axial and coronal T1 images, axial susceptibility w eighted imaging, axial diffusion weighted images, and coronal T2 images were obtained. CLINICAL INFORMATION: CERVICALGIA COMPARISON: MRI 05/30/2023 FINDINGS: Unable to obtain IV access. Gadolinium not administered. Some images significant degraded b y motion. No evidence of restricted diffusion to suggest acute ischemia. Ventricular system and basilar cistern s are patent. Stable cerebellar tonsillar ectopia. Normal vascular flow voids at the skull base. No extra-axial fluid collections. Small amount of fluid with mucosal thickening RIGHT maxillary sinus. Mastoid air cells are well aerated. Normal optic magnolia sm and pituitary infundibulum. The temporal lobes and hippocampal formations appear normal. Susceptib ility weighted images are significantly degraded by motion. MR/MR head wo con* [id number] IMPRESSION: Unable to obtain IV access. Gadolinium not administered. Some image s significant degraded by motion. 1. No evidence of restricted diffusion to suggest acute ischemia. 2. Stable cerebellar tonsillar ectopia. 3. RIGHT maxillary sinusitis. 4. No other acute findings considering limitations
== END 2023-10-29 07:04 | disposition home or self-care (01) ==
LOC: RAD 07:03
PROVIDERS: PCP Internal Medicine; Visit Provider Specialist
DX: M54.2 Cervicalgia (principal); J32.0 Chronic maxillary sinusitis
CPT/HCPCS: 70551

== ENCOUNTER 2023-11-12 20:00 | Outpatient (CLI) | payer MEDICAID, SELFPAY | END 2023-11-12 20:01 | disposition home or self-care (01) | PROVIDERS: PCP Internal Medicine; Visit Provider Internal Medicine | DX: E11.42 Type 2 diabetes mellitus with diabetic polyneuropathy (principal); G57.61 Lesion of plantar nerve, right lower limb; I73.9 Peripheral vascular disease, unspecified; Z79.4 Long term (current) use of insulin; M47.816 Spondylosis without myelopathy or radiculopathy, lumbar region | CPT/HCPCS: 95810; 99213 ==

== ENCOUNTER → 2023-11-15 10:27 | Outpatient (BNVA) | payer MEDICAID, SELFPAY | PROVIDERS: PCP Internal Medicine; Visit Provider Specialist | DX: M25.561 Pain in right knee (principal); M25.562 Pain in left knee; M17.0 Bilateral primary osteoarthritis of knee | CPT/HCPCS: 20610; J1100; J2795; J3301 ==

== ENCOUNTER → 2023-11-19 10:19 | Outpatient (BNVA) | payer MEDICAID, SELFPAY | PROVIDERS: PCP Internal Medicine; Visit Provider Specialist | DX: M54.81 Occipital neuralgia (principal) | CPT/HCPCS: 64405; 64450; J1010; J3490 ==

== ENCOUNTER 2023-11-25 14:13 | Outpatient (CLI) | payer MEDICAID, SELFPAY ==
[2023-11-25 15:03] LABS: Anion Gap 13.4 (5-19); Blood Urea Nitrogen 14 mg/dL (6-20); Calcium 8.3 mg/dL (8.5-10.5); Carbon Dioxide 26 mmol/L (22-29); Chloride 101 mmol/L (98-107); Glomerular Filtration Rate 58.2 mL/min (90-130); Glucose 180 mg/dL (65-115); Osmolality Calculated 289 mOsm/kg (285-295); Potassium 3.4 mmol/L (3.5-5.1); Sodium 137 mmol/L (136-145)
[2023-11-25 15:20] LABS: 25 Hydroxy Vitamin D 33 ng/mL (30-100)
== END 2023-11-25 14:14 | disposition home or self-care (01) ==
LOC: LAB 14:15
PROVIDERS: PCP Internal Medicine; Visit Provider Internal Medicine
DX: M81.0 Age-related osteoporosis without current pathological fracture (principal); E55.9 Vitamin D deficiency, unspecified
CPT/HCPCS: 80048; 82306

== ENCOUNTER 2023-12-02 11:51 | Outpatient (CLI) | payer MEDICAID, SELFPAY ==
--- NOTE | 2023-12-02 11:55 | XRR_ITS ---
PROCEDURE INFORMATION: Exam: XR Chest Exam date and time: 12/02/2023 11:59 AM Age: 53 years old Clinical indication: Prior surgery; Surgery date: 6+ months; Surgery type: Gb; Patient HX: Cough and difficulty breathing x 1mo, walking pneumonia 1 mo ago TECHNIQUE: Imaging protocol: Radiologic exam of the chest. Views: 2 views. COMPARISON: CR XR chest 2V* [id number] 10/22/2023 10:35 AM FINDINGS: Airway: Patent Lungs: Slight linear atelectasis left lung base. No acute interstitial or airspace disease. Pleural spaces: Unremarkable. No pleural effusion. No pneumothorax. Heart/Mediastinum: Unremarkable. No cardiomegaly. Bones/joints: Mild degenerative changes bilateral AC joints. Mild degenerative changes thoracic spine. No acute skeletal abnormality or aggressive osseous lesion. Organs: Surgical clips are present in the right upper quadrant, consistent with previous cholecystectomy. XR/XR chest 2V* [id number] IMPRESSION: No acute thoracic pathology.
== END 2023-12-02 11:52 | disposition home or self-care (01) ==
LOC: RAD 11:54
PROVIDERS: PCP Internal Medicine; Visit Provider Nurse Practitioner Family
DX: R05.9 Cough, unspecified (principal)
CPT/HCPCS: 71046

== ENCOUNTER → 2023-12-04 11:18 | Outpatient (BNVA) | payer MEDICAID, SELFPAY | PROVIDERS: PCP Internal Medicine; Visit Provider Podiatrist Foot & Ankle Surgery | DX: G57.61 Lesion of plantar nerve, right lower limb (principal); E11.42 Type 2 diabetes mellitus with diabetic polyneuropathy; I73.9 Peripheral vascular disease, unspecified | CPT/HCPCS: 64455; 99214; J1100; J3301; J3490 ==

== ENCOUNTER → 2023-12-05 13:13 | Outpatient (BNVA) | payer MEDICAID, SELFPAY | PROVIDERS: PCP Internal Medicine; Visit Provider Internal Medicine | DX: E03.9 Hypothyroidism, unspecified (principal); E78.2 Mixed hyperlipidemia; E11.9 Type 2 diabetes mellitus without complications; Z79.899 Other long term (current) drug therapy | CPT/HCPCS: 80053 ==

== ENCOUNTER 2023-12-09 09:00 | Outpatient (CLI) | payer MEDICAID, SELFPAY ==
--- NOTE | 2023-12-09 09:18 | MM_ITS ---
WS: [id number] BILATERAL SCREENING DIGITAL TOMOSYNTHESIS MAMMOGRAM WITH CAD HISTORY: SCREENING COMPARISON: 11/26/2022, 09/26/2021 Bilateral CC and MLO views with tomosynthesis and synthetic mammography submitted. Computer aided det ection analyzed. Breast composition: There are scattered areas of fibroglandular density. No suspicious masses, microc alcifications or architectural distortion. Benign calcifications in each breast. MM/[place] [id number] IMPRESSION: BI-RADS: 2-Benign FOLLOW UP: 1 Year Follow-up
== END 2023-12-09 09:15 | disposition home or self-care (01) ==
PROVIDERS: PCP Internal Medicine; Visit Provider Internal Medicine
DX: Z12.31 Encounter for screening mammogram for malignant neoplasm of breast (principal); R92.323 Mammographic fibroglandular density, bilateral breasts; R92.1 Mammographic calcification found on diagnostic imaging of breast
CPT/HCPCS: 77063; 77067

== ENCOUNTER 2023-12-09 11:49 | Oncology outpatient (recurring) (ONCR) | payer MEDICAID, SELFPAY ==
[2023-12-09 12:03] VITALS: BP 129/78; PULSE 98; RESP 18; TEMP 36.8; O2SAT 97
[2023-12-09] MEDS: denosumab 60 mg SDV SUBCUT (12:05)
== END 2023-12-22 23:59 | disposition home or self-care (01) ==
PROVIDERS: PCP Internal Medicine; Visit Provider Internal Medicine Medical Oncology
DX: M81.0 Age-related osteoporosis without current pathological fracture (principal)
CPT/HCPCS: 96372; J0897

== ENCOUNTER → 2023-12-20 11:48 | Outpatient (BNVA) | payer MEDICAID, SELFPAY | PROVIDERS: PCP Internal Medicine; Visit Provider Specialist | DX: M54.81 Occipital neuralgia (principal) | CPT/HCPCS: 64405; 64450 ==

== ENCOUNTER 2024-01-16 09:22 | Outpatient (CLI) | payer MEDICAID, SELFPAY ==
[2024-01-16 10:19] LABS: Creatinine Urine, Random 178 mg/dL (28-217); Microalbum Creatinine Ratio Ur 6 mg/dL (0-20); Microalbumin Random Urine 1 ug/dL (0-20)
[2024-01-16 10:23] LABS: Chol HDL Ratio 5.21 mg/dL (0.0-4.40); Cholesterol 219 mg/dL (0-200); HDL Cholesterol 42 mg/dL (60-100); LDL Cholesterol Calculated 115 mg/dL (50-129); LDL HDL Ratio 2.74 RATIO (0.00-3.22); Triglycerides 310 mg/dL (0-150)
[2024-01-16 10:24] LABS: Estmated Average Glucose 143; Hemoglobin A1C 6.6 % (4.0-6.0)
[2024-01-16 10:25] LABS: Calcium 8.7 mg/dL (8.5-10.5)
[2024-01-16 10:33] LABS: Parathyroid Hormone 110.4 pg/mL (15-65)
[2024-01-16 10:38] LABS: 25 Hydroxy Vitamin D 32 ng/mL (30-100)
== END 2024-01-16 09:23 | disposition home or self-care (01) ==
LOC: LAB 09:23
PROVIDERS: PCP Internal Medicine; Visit Provider Internal Medicine
DX: E03.9 Hypothyroidism, unspecified (principal); E78.2 Mixed hyperlipidemia; E11.9 Type 2 diabetes mellitus without complications; E55.9 Vitamin D deficiency, unspecified
CPT/HCPCS: 36415; 64405; 80061; 82044; 82306; 82310; 83036; 83970; J1010; J3490

== ENCOUNTER → 2024-01-22 08:13 | Outpatient (BNVA) | payer MEDICAID, SELFPAY | PROVIDERS: PCP Internal Medicine; Visit Provider Internal Medicine | DX: E03.9 Hypothyroidism, unspecified (principal); E55.9 Vitamin D deficiency, unspecified; M81.0 Age-related osteoporosis without current pathological fracture; Z87.442 Personal history of urinary calculi; N30.90 Cystitis, unspecified without hematuria; E78.2 Mixed hyperlipidemia; E11.22 Type 2 diabetes mellitus with diabetic chronic kidney disease; N18.30 Chronic kidney disease, stage 3 unspecified; E66.01 Morbid (severe) obesity due to excess calories; Z68.42 Body mass index [BMI] 45.0-49.9, adult; E11.42 Type 2 diabetes mellitus with diabetic polyneuropathy; E16.0 Drug-induced hypoglycemia without coma; T38.3X5A Adverse effect of insulin and oral hypoglycemic [antidiabetic] drugs, initial encounter; E11.649 Type 2 diabetes mellitus with hypoglycemia without coma; X58.XXXA Exposure to other specified factors, initial encounter; Z79.890 Hormone replacement therapy | CPT/HCPCS: 99214 ==

== ENCOUNTER → 2024-02-04 11:22 | Outpatient (BNVA) | payer MEDICAID, SELFPAY | PROVIDERS: PCP Internal Medicine; Visit Provider Podiatrist Foot & Ankle Surgery | DX: E11.42 Type 2 diabetes mellitus with diabetic polyneuropathy (principal); I73.9 Peripheral vascular disease, unspecified; G57.61 Lesion of plantar nerve, right lower limb; Z79.4 Long term (current) use of insulin | CPT/HCPCS: 99213 ==

== ENCOUNTER → 2024-02-20 07:56 | Outpatient (BNVA) | payer MEDICAID, SELFPAY | PROVIDERS: PCP Internal Medicine; Visit Provider Specialist | DX: M54.81 Occipital neuralgia (principal) | CPT/HCPCS: 64400; 64405; 64450; J1010; J3490 ==

== ENCOUNTER → 2024-02-28 09:58 | Outpatient (BNVA) | payer MEDICAID, SELFPAY | PROVIDERS: PCP Internal Medicine; Visit Provider Nurse Practitioner | DX: M17.0 Bilateral primary osteoarthritis of knee (principal); E78.1 Pure hyperglyceridemia; I10 Essential (primary) hypertension; R00.0 Tachycardia, unspecified; Z79.899 Other long term (current) drug therapy | CPT/HCPCS: 20610; 99214; J1100; J2795; J3301 ==

== ENCOUNTER → 2024-03-03 09:23 | Outpatient (BNVA) | payer MEDICAID, SELFPAY | PROVIDERS: PCP Internal Medicine; Visit Provider Nurse Practitioner Family | DX: L82.1 Other seborrheic keratosis (principal); L73.2 Hidradenitis suppurativa; L21.8 Other seborrheic dermatitis; L98.1 Factitial dermatitis; L81.0 Postinflammatory hyperpigmentation; L40.59 Other psoriatic arthropathy; L72.0 Epidermal cyst; Z85.820 Personal history of malignant melanoma of skin | CPT/HCPCS: 99214 ==

== ENCOUNTER → 2024-03-18 12:43 | Outpatient (BNVA) | payer MEDICAID, SELFPAY | PROVIDERS: PCP Internal Medicine; Visit Provider Specialist | DX: M54.81 Occipital neuralgia (principal) | CPT/HCPCS: 64405; 64450; J1010; J3490 ==

== ENCOUNTER → 2024-04-03 08:22 | Outpatient (BNVA) | payer MEDICAID, SELFPAY | PROVIDERS: PCP Internal Medicine; Visit Provider Nurse Practitioner Family | DX: I95.1 Orthostatic hypotension (principal); E66.9 Obesity, unspecified; Z68.43 Body mass index [BMI] 50.0-59.9, adult; G47.33 Obstructive sleep apnea (adult) (pediatric); Z99.89 Dependence on other enabling machines and devices; Z78.9 Other specified health status; E86.0 Dehydration; R00.0 Tachycardia, unspecified; Z87.898 Personal history of other specified conditions; E78.5 Hyperlipidemia, unspecified | CPT/HCPCS: 99214 ==

== ENCOUNTER → 2024-04-15 12:58 | Outpatient (BNVA) | payer MEDICAID, SELFPAY | PROVIDERS: PCP Internal Medicine; Visit Provider Internal Medicine Rheumatology | DX: Z79.899 Other long term (current) drug therapy (principal); L40.50 Arthropathic psoriasis, unspecified; L40.0 Psoriasis vulgaris; Z71.85 Encounter for immunization safety counseling; M81.0 Age-related osteoporosis without current pathological fracture | CPT/HCPCS: 36415; 80076; 82565; 85025; 85651; 86140; 99214 ==

== ENCOUNTER → 2024-04-17 13:39 | Outpatient (BNVA) | payer MEDICAID, SELFPAY | PROVIDERS: PCP Internal Medicine; Visit Provider Specialist | DX: M54.81 Occipital neuralgia (principal); R03.0 Elevated blood-pressure reading, without diagnosis of hypertension | CPT/HCPCS: 64405; 64450 ==

== ENCOUNTER 2024-05-11 08:05 | Oncology outpatient (recurring) (ONCR) | payer MEDICAID, SELFPAY ==
[2024-05-11] VITALS (8 sets, daily range): BP systolic 105–130; BP diastolic 62–78; PULSE 88–96; RESP 16–18; TEMP 35.9–36.9; O2SAT 92–98
[2024-05-11] MEDS: acetaminophen 325 mg Tablet 650 MG PO (09:06)
[2024-05-11] MEDS: sodium chloride 0.9% 250 ML 75 ML IV (09:06)
[2024-05-11] MEDS: methylPREDNISolone sod succ 40 mg/mL INJ 20 MG IVP (09:07)
[2024-05-11] MEDS: diphenhydrAMINE 50 mg/mL SDV 1mL 25 MG IVP (09:11)
[2024-05-11] MEDS: infliximab-abda 700 MG in sodium chloride 0.9% 250 ML 10 MG IV (09:56)
== END 2024-05-23 23:59 | disposition home or self-care (01) ==
PROVIDERS: PCP Internal Medicine; Visit Provider Internal Medicine Medical Oncology
DX: L40.50 Arthropathic psoriasis, unspecified (principal); Z79.899 Other long term (current) drug therapy
CPT/HCPCS: 96375; 96413; 96415; A4222; J1200; J2919; J7050; Q5104

== ENCOUNTER 2024-05-18 14:01 | Outpatient (CLI) | payer MEDICAID, SELFPAY ==
[2024-05-18 14:52] LABS: Creatinine Urine, Random 239 mg/dL (28-217); Microalbum Creatinine Ratio Ur 4 mg/dL (0-20); Microalbumin Random Urine 1 ug/dL (0-20)
[2024-05-18 15:03] LABS: Estmated Average Glucose 140; Hemoglobin A1C 6.5 % (4.0-6.0)
[2024-05-18 15:11] LABS: 25 Hydroxy Vitamin D 24 ng/mL (30-100); Alanine Aminotransferase 18 U/L (0-33); Albumin Level 3.7 g/dL (3.5-5.2); Alkaline Phosphatase 81 U/L (35-105); Anion Gap 11.6 (5-19); Aspartate Amino Transferase 17 U/L (0-32); Blood Urea Nitrogen 9 mg/dL (6-20); Calcium 8.8 mg/dL (8.5-10.5); Carbon Dioxide 28 mmol/L (22-29); Chloride 103 mmol/L (98-107); Cholesterol 216 mg/dL (0-200); Globulin 2.9 g/dL (1.3-4.6); Glomerular Filtration Rate 65.8 mL/min (90-130); Glucose 189 mg/dL (65-115); HDL Cholesterol 40 mg/dL (60-100); Osmolality Calculated 292 mOsm/kg (285-295); Potassium 3.6 mmol/L (3.5-5.1); Sodium 139 mmol/L (136-145); Thyroid Stimulating Hormone 1.77 uIU/mL (0.27-4.20); Total Bilirubin 0.2 mg/dL (0.15-1.2); Total Protein 6.6 g/dL (6.6-8.7); Triglycerides 430 mg/dL (0-150)
[2024-05-18 15:28] LABS: LDL Cholesterol Direct 112 mg/dL (0-100)
[2024-05-18 15:36] LABS: Free T4 Free Thyroxine 0.89 ng/dL (0.82-1.77)
== END 2024-05-18 14:02 | disposition home or self-care (01) ==
LOC: LAB 14:03
PROVIDERS: PCP Internal Medicine; Visit Provider Internal Medicine
DX: E03.9 Hypothyroidism, unspecified (principal); E55.9 Vitamin D deficiency, unspecified; E11.42 Type 2 diabetes mellitus with diabetic polyneuropathy; I73.9 Peripheral vascular disease, unspecified; M72.2 Plantar fascial fibromatosis; M20.41 Other hammer toe(s) (acquired), right foot; M20.42 Other hammer toe(s) (acquired), left foot; M21.621 Bunionette of right foot; M21.622 Bunionette of left foot; M21.41 Flat foot [pes planus] (acquired), right foot; M21.42 Flat foot [pes planus] (acquired), left foot; Z79.4 Long term (current) use of insulin
CPT/HCPCS: 36415; 80053; 80061; 82044; 82306; 83036; 83721; 84439; 84443; 99213

== ENCOUNTER → 2024-05-20 08:45 | Outpatient (BNVA) | payer MEDICAID, SELFPAY | PROVIDERS: PCP Internal Medicine; Visit Provider Internal Medicine | DX: E03.9 Hypothyroidism, unspecified (principal); E55.9 Vitamin D deficiency, unspecified; M81.0 Age-related osteoporosis without current pathological fracture; Z87.442 Personal history of urinary calculi; N30.90 Cystitis, unspecified without hematuria; E78.2 Mixed hyperlipidemia; E11.22 Type 2 diabetes mellitus with diabetic chronic kidney disease; N18.30 Chronic kidney disease, stage 3 unspecified; E66.01 Morbid (severe) obesity due to excess calories; Z68.42 Body mass index [BMI] 45.0-49.9, adult; E11.42 Type 2 diabetes mellitus with diabetic polyneuropathy; E16.0 Drug-induced hypoglycemia without coma; T38.3X5A Adverse effect of insulin and oral hypoglycemic [antidiabetic] drugs, initial encounter; E11.649 Type 2 diabetes mellitus with hypoglycemia without coma; X58.XXXA Exposure to other specified factors, initial encounter; Z79.4 Long term (current) use of insulin; Z79.890 Hormone replacement therapy | CPT/HCPCS: 99214 ==

== ENCOUNTER → 2024-06-08 12:37 | Outpatient (BNVA) | payer MEDICAID, SELFPAY | PROVIDERS: PCP Internal Medicine; Visit Provider Nurse Practitioner | DX: M17.0 Bilateral primary osteoarthritis of knee (principal); Z71.89 Other specified counseling | CPT/HCPCS: 20610; J1100; J2795; J3301 ==

== ENCOUNTER 2024-06-22 08:15 | Outpatient (CLI) | payer MEDICAID, SELFPAY ==
[2024-06-22 09:04] LABS: Alanine Aminotransferase 20 U/L (0-33); Albumin Level 3.7 g/dL (3.5-5.2); Alkaline Phosphatase 93 U/L (35-105); Anion Gap 13.6 (5-19); Aspartate Amino Transferase 18 U/L (0-32); Blood Urea Nitrogen 12 mg/dL (6-20); Calcium 9.4 mg/dL (8.5-10.5); Carbon Dioxide 28 mmol/L (22-29); Chloride 101 mmol/L (98-107); Glomerular Filtration Rate 65.8 mL/min (90-130); Glucose 141 mg/dL (65-115); Osmolality Calculated 290 mOsm/kg (285-295); Potassium 3.6 mmol/L (3.5-5.1); Sodium 139 mmol/L (136-145); Total Bilirubin 0.3 mg/dL (0.15-1.2); Total Protein 6.7 g/dL (6.6-8.7)
[2024-06-22 09:17] LABS: 25 Hydroxy Vitamin D 22 ng/mL (30-100)
== END 2024-06-22 08:16 | disposition home or self-care (01) ==
PROVIDERS: Internal Medicine; PCP Internal Medicine; Visit Provider Internal Medicine
DX: E55.9 Vitamin D deficiency, unspecified (principal); M81.0 Age-related osteoporosis without current pathological fracture; E11.9 Type 2 diabetes mellitus without complications
CPT/HCPCS: 36415; 80053; 82306

== ENCOUNTER 2024-06-22 09:00 | Oncology outpatient (recurring) (ONCR) | payer MEDICAID, SELFPAY ==
[2024-05-25 10:14] VITALS: BP 119/73; PULSE 73; RESP 16; TEMP 36.6; O2SAT 96
[2024-05-25] MEDS: diphenhydrAMINE 50 mg/mL SDV 1mL 25 MG IVP (10:29)
[2024-05-25] MEDS: acetaminophen 325 mg Tablet 650 MG PO (10:29)
[2024-05-25] MEDS: sodium chloride 0.9% 250 ML 50 ML IV (10:29)
[2024-05-25] MEDS: methylPREDNISolone sod succ 40 mg/mL INJ 20 MG IVP (10:36)
[2024-05-25] MEDS: infliximab-abda 700 MG in sodium chloride 0.9% 250 ML 10 MG IV (11:11)
[2024-05-25 11:25] VITALS: BP 101/62; PULSE 83; RESP 16; TEMP 36.7; O2SAT 96
[2024-05-25 13:43] VITALS: BP 117/76; PULSE 88; RESP 17; TEMP 36.4; O2SAT 94
--- NOTE | 2024-05-25 14:16 | PC.NURSE ---
RN at chairside due to IV pump alarming, infusion complete, patient denies and concerns or side effects from medication at this time. This RN is unable to locate the titration paper with vital at this time.
[2024-06-22 09:39] VITALS: BP 116/74; PULSE 91; RESP 18; TEMP 36.4; O2SAT 98
[2024-06-22] MEDS: acetaminophen 325 mg Tablet 650 MG PO (10:53)
[2024-06-22] MEDS: methylPREDNISolone sod succ 40 mg/mL INJ 20 MG IVP (10:54)
[2024-06-22] MEDS: diphenhydrAMINE 50 mg/mL SDV 1mL 25 MG IVP (11:00)
[2024-06-22] MEDS: infliximab-abda 700 MG in sodium chloride 0.9% 250 ML 10 MG IV (11:50)
[2024-06-22 12:13] VITALS: BP 133/74; PULSE 90; RESP 18; TEMP 36.2; O2SAT 97
[2024-06-22 12:30] VITALS: BP 110/61; PULSE 90; RESP 18; TEMP 36.3; O2SAT 94
[2024-06-22 12:45] VITALS: BP 101/60
[2024-06-22 13:15] VITALS: BP 113/64; PULSE 80; RESP 18; TEMP 36.1; O2SAT 93
[2024-06-22 13:45] VITALS: BP 110/67; PULSE 88; RESP 18; TEMP 36.3; O2SAT 93
[2024-06-22] MEDS: denosumab 60 mg SDV SUBCUT (14:30)
== END 2024-06-22 23:59 | disposition home or self-care (01) ==
PROVIDERS: PCP Internal Medicine; Visit Provider Internal Medicine Medical Oncology
DX: Z53.9 Procedure and treatment not carried out, unspecified reason; L40.50 Arthropathic psoriasis, unspecified; Z79.899 Other long term (current) drug therapy; M81.0 Age-related osteoporosis without current pathological fracture
CPT/HCPCS: 96372; 96375; 96413; 96415; A4222; J0897; J1200; J2919; J7050; Q5104

== ENCOUNTER 2024-08-03 09:04 | Oncology outpatient (recurring) (ONCR) | payer MEDICAID, SELFPAY ==
[2024-08-03 09:37] VITALS: BP 124/72; PULSE 79; RESP 18; TEMP 36.1; O2SAT 98
[2024-08-03 09:40] LABS: Basophils # 0.1 10^3/uL (0.0-0.1); Basophils % 0.8 %; Eosinophils # 0.3 10^3/uL (0.0-0.8); Eosinophils % 2.9 %; Lymphocytes # 3.3 10^3/uL (0.8-4.8); Lymphocytes % 38.9 %; Mean Corpuscular HGB Conc 30.7 g/dL (30-55); Mean Corpuscular Hemoglobin 24.8 pg (27-33); Mean Corpuscular Volume 80.7 fl (85-98); Mean Platelet Volume 9.5 fL (7.4-10.4); Monocytes # 0.5 10^3/uL (0.2-0.9); Monocytes % 5.5 %; Neutrophils # 4.37 10^3/uL (1.8-7.7); Neutrophils % 51.5 %; Nucleated Red Blood Cells % 0 %; Platelet Count 243 10^3/cmm (157-399); Red Blood Count 5.08 10^6/uL (3.85-5.65); Red Cell Distribution Width 15.6 % (12.1-15.1)
[2024-08-03] MEDS: acetaminophen 325 mg Tablet 650 MG PO (09:43)
[2024-08-03] MEDS: methylPREDNISolone sod succ 40 mg/mL INJ 20 MG IVP (09:44)
[2024-08-03] MEDS: sodium chloride 0.9% 250 ML 75 ML IV (09:44)
[2024-08-03 09:45] LABS: Erythrocyte Sedimentation Rate 13 mm/hr (0-15)
[2024-08-03] MEDS: diphenhydrAMINE 50 mg/mL SDV 1mL 25 MG IVP (09:47)
[2024-08-03] MEDS: infliximab-abda 700 MG in sodium chloride 0.9% 250 ML 10 MG IV (10:26)
[2024-08-03 10:30] VITALS: BP 120/74; PULSE 84; RESP 17; TEMP 36.3; O2SAT 94
[2024-08-03 11:30] VITALS: BP 109/73; PULSE 85; RESP 16; TEMP 35.8; O2SAT 96
[2024-08-03 12:56] VITALS: BP 146/90; PULSE 84; RESP 16; TEMP 35.8; O2SAT 97
== END 2024-08-21 23:59 | disposition home or self-care (01) ==
PROVIDERS: Internal Medicine Rheumatology; PCP Internal Medicine; Visit Provider Internal Medicine Medical Oncology
DX: L40.50 Arthropathic psoriasis, unspecified (principal); Z79.899 Other long term (current) drug therapy
CPT/HCPCS: 85025; 85651; 96375; 96413; 96415; A4222; J1200; J2919; J7050; Q5104

== ENCOUNTER → 2024-08-11 10:08 | Outpatient (BNVA) | payer MEDICAID, SELFPAY | PROVIDERS: PCP Internal Medicine; Visit Provider Internal Medicine Rheumatology | DX: L40.50 Arthropathic psoriasis, unspecified (principal); L40.0 Psoriasis vulgaris; Z79.899 Other long term (current) drug therapy; Z71.85 Encounter for immunization safety counseling; M81.0 Age-related osteoporosis without current pathological fracture | CPT/HCPCS: 99214 ==

== ENCOUNTER → 2024-08-20 10:17 | Outpatient (BNVA) | payer MEDICAID, SELFPAY | PROVIDERS: PCP Internal Medicine; Visit Provider Internal Medicine | DX: E11.42 Type 2 diabetes mellitus with diabetic polyneuropathy (principal); E55.9 Vitamin D deficiency, unspecified; E03.9 Hypothyroidism, unspecified; E16.0 Drug-induced hypoglycemia without coma; T38.3X5A Adverse effect of insulin and oral hypoglycemic [antidiabetic] drugs, initial encounter; E11.22 Type 2 diabetes mellitus with diabetic chronic kidney disease; N18.30 Chronic kidney disease, stage 3 unspecified | CPT/HCPCS: 36415; 80053; 80061; 82044; 82306; 83036; 84439; 84443; 85025; 99214 ==

== ENCOUNTER → 2024-08-31 09:12 | Outpatient (BNVA) | payer MEDICAID, SELFPAY | PROVIDERS: PCP Internal Medicine; Visit Provider Nurse Practitioner Family | DX: L73.8 Other specified follicular disorders (principal); L21.8 Other seborrheic dermatitis; L28.1 Prurigo nodularis; L98.1 Factitial dermatitis; L72.0 Epidermal cyst; Z08 Encounter for follow-up examination after completed treatment for malignant neoplasm; Z85.820 Personal history of malignant melanoma of skin; L29.89 Other pruritus; R58 Hemorrhage, not elsewhere classified | CPT/HCPCS: 17110; 99214 ==

== ENCOUNTER 2024-09-07 09:58 | Outpatient (CLI) | payer MEDICAID, SELFPAY ==
--- NOTE | 2024-09-07 10:11 | XRR_ITS ---
PROCEDURE INFORMATION: Exam: XR Abdomen Exam date and time: 09/07/2024 10:30 AM Age: 53 years old Clinical indication: Condition or disease; Kidney or ureter condition; Calculus (stone) in kidney; Prior surgery; Surgery date: 6+ months; Surgery type: Gb; Additional info: HX of kidney stones TECHNIQUE: Imaging protocol: Radiologic exam of the abdomen. Views: Frontal supine view of the abdomen. 1 View. COMPARISON: CR XR KUB [id number] 02/05/2022 3:18 PM FINDINGS: Gastrointestinal tract: Nonspecific bowel gas pattern. . No bowel dilation. Organs: Likely cholecystectomy. Bones/joints: Unremarkable. XR/XR KUB [id number] IMPRESSION: No acute findings.
== END 2024-09-07 09:59 | disposition home or self-care (01) ==
PROVIDERS: PCP Internal Medicine; Visit Provider Nurse Practitioner Family
DX: Z87.442 Personal history of urinary calculi (principal); R93.3 Abnormal findings on diagnostic imaging of other parts of digestive tract
CPT/HCPCS: 74018

== ENCOUNTER 2024-09-14 07:56 | Oncology outpatient (recurring) (ONCR) | payer MEDICAID, SELFPAY ==
[2024-09-14 08:49] VITALS: BP 121/72; PULSE 83; TEMP 36.4; O2SAT 99
[2024-09-14] MEDS: acetaminophen 325 mg Tablet 650 MG PO (09:02)
[2024-09-14] MEDS: diphenhydrAMINE 50 mg/mL SDV 1mL 25 MG IVP (09:14)
[2024-09-14] MEDS: methylPREDNISolone sod succ 40 mg/mL INJ 20 MG IVP (09:15)
[2024-09-14] MEDS: sodium chloride 0.9% 250 ML 75 ML IV (09:18)
[2024-09-14 09:34] LABS: C Reactive Protein 9.3 mg/L (0.0-4.9)
[2024-09-14] MEDS: infliximab-abda 700 MG in sodium chloride 0.9% 250 ML 250 MG IV (09:58)
[2024-09-14 11:17] VITALS: BP 108/61; PULSE 80; TEMP 36.3; O2SAT 98
== END 2024-09-21 23:59 | disposition home or self-care (01) ==
PROVIDERS: Internal Medicine Rheumatology; PCP Internal Medicine; Visit Provider Internal Medicine Medical Oncology
DX: L40.50 Arthropathic psoriasis, unspecified (principal); Z79.899 Other long term (current) drug therapy
CPT/HCPCS: 86140; 96375; 96413; A4222; J1200; J2919; J7050; J9999; Q5104

== ENCOUNTER → 2024-09-24 09:26 | Outpatient (BNVA) | payer MEDICAID, SELFPAY | PROVIDERS: PCP Internal Medicine; Visit Provider Student in an Organized Health Care Education/Training Program | DX: Z12.11 Encounter for screening for malignant neoplasm of colon (principal) | CPT/HCPCS: 99024; 99204 ==

== ENCOUNTER → 2024-09-28 13:59 | Outpatient (BNVA) | payer MEDICAID, SELFPAY | PROVIDERS: PCP Internal Medicine; Visit Provider Internal Medicine Cardiovascular Disease | DX: I95.1 Orthostatic hypotension (principal); R09.89 Other specified symptoms and signs involving the circulatory and respiratory systems; I10 Essential (primary) hypertension; R53.83 Other fatigue; G47.30 Sleep apnea, unspecified; E11.9 Type 2 diabetes mellitus without complications; Z79.4 Long term (current) use of insulin; Z79.82 Long term (current) use of aspirin; R00.0 Tachycardia, unspecified | CPT/HCPCS: 99214 ==

== ENCOUNTER → 2024-09-28 14:01 | Outpatient (BNVA) | payer MEDICAID, SELFPAY | PROVIDERS: PCP Internal Medicine; Visit Provider Nurse Practitioner | DX: M17.0 Bilateral primary osteoarthritis of knee (principal); Z71.89 Other specified counseling | CPT/HCPCS: 20610; J1100; J2795; J3301; J9999 ==

== ENCOUNTER 2024-09-29 11:57 | Day surgery (SDC) | payer MEDICAID, SELFPAY ==
[2024-09-29 12:53] VITALS: BP 145/92; PULSE 98; RESP 17; TEMP 36.3; O2SAT 98; BMI 52.1
--- NOTE | 2024-09-29 12:53 | W.PM.OPSFHP ---
Same Day Surgery H&P Indication for Procedure/HPI DATE OF PROCEDURE: September 29, 2024 CHIEF COMPLAINT/INDICATIONFOR SURGICAL PROCEDURE: heartburn PREOP DIAGNOSIS: heartburn PLANNED PROCEDURE: Operation Date: 09/29/24 12:00 Proposed Procedures p EGD 20789 K21.9(Not Applicable) - Juan Herring MD Medications/Allergies* Home Medications ?Medication ?Instructions ?Recorded ?Confirmed ?Type allopurinol 300 mg tablet 300 mg PO BEDTIME 07/07/19 09/29/24 History denosumab 60 mg/mL subcutaneous 60 mg SUBCUT .COMPLEX 07/07/19 09/29/24 History syringe (Prolia) gabapentin 300 mg capsule 600 mg PO TID 07/07/19 09/29/24 History insulin aspart U-100 100 unit/mL 50 unit SUBCUT BID 07/07/19 09/29/24 History (3 mL) subcutaneous pen (Novolog FlexPen U-100 Insulin aspart) insulin lispro 100 unit/mL 15 unit SUBCUT TIDWM 07/07/19 09/29/24 History subcutaneous solution (Humalog U-100 Insulin) levothyroxine 100 mcg tablet 100 mcg PO DAILY 07/07/19 09/29/24 History (Synthroid) tamsulosin 0.4 mg capsule (Flomax) 0.4 mg PO BID 07/24/19 09/28/24 History levocetirizine 5 mg tablet (Xyzal) 5 mg PO DAILY 12/09/19 09/29/24 History albuterol sulfate 90 mcg/actuation 2 puff inhalation QID PRN 06/03/21 09/29/24 History aerosol inhaler Shortness Of Breath cetirizine 10 mg tablet 10 mg PO DAILY PRN Allergy Symptoms 06/03/21 09/29/24 History docusate sodium 100 mg capsule 300 mg PO BEDTIME 06/03/21 09/29/24 History spironolactone 100 mg tablet 100 mg PO DAILY 06/03/21 09/28/24 History aspirin 81 mg chewable tablet 81 mg PO DAILY 11/29/21 09/29/24 History ibuprofen 200 mg tablet 200 mg PO Q6H PRN Pain 11/29/21 09/29/24 History Held on 09/25/23. Instructions: Resume on 09/28/23. lactobacillus combination no.4 3 3,000 mmu cells PO DAILY 02/05/22 09/29/24 History billion cell capsule (Probiotic) acyclovir 400 mg tablet 400 mg PO DAILY 05/31/22 09/29/24 History naloxone 4 mg/actuation nasal 4 mg intranasal Q2M PRN 09/23/23 09/29/24 History spray (Narcan) oversedation omeprazole magnesium 20 mg 20 mg PO DAILY 12/04/23 09/29/24 History capsule,delayed release clindamycin phosphate 1 % lotion 1 applic topical BID PRN Rash 09/28/24 09/29/24 History infliximab-abda 100 mg intravenous 100 mg IV .Q6WKS 09/28/24 09/29/24 History solution (Renflexis) mupirocin 2 % topical ointment 1 applic topical BID PRN Rash 09/28/24 09/29/24 History triamcinolone acetonide 0.1 % 1 applic topical DAILY PRN Rash 09/28/24 09/29/24 History topical cream venlafaxine 75 mg capsule,extended 75 mg PO BEDTIME 09/28/24 09/29/24 History release 24 hr Allergies/Adverse Reactions Allergy/AdvReac Type Severity Reaction Status Date / Time hydromorphone Allergy Severe ADR-Headach Verified 09/29/24 12:44 e adhesive Allergy Intermediate ALGY-Bliste Verified 09/29/24 12:44 r lactose Allergy Mild sick to Verified 09/29/24 12:44 stomach amoxicillin (From Augmentin) Allergy vomiting/ra Verified 09/29/24 12:44 sh clavulanic acid (From Allergy vomiting/ra Verified 09/29/24 12:44 Augmentin) sh lactase (From Dairy Aid) Allergy sick to Verified 09/29/24 12:44 stomach latex Allergy rash Verified 09/29/24 12:44 Penicillins Allergy rash/vomiti Verified 09/29/24 12:44 ng Sulfa (Sulfonamide Allergy ADR-Heartbu Verified 09/29/24 12:44 Antibiotics) rn leflunomide AdvReac Intermediate HAIR LOSS Verified 09/29/24 12:44 rosuvastatin (From Crestor) AdvReac ADV-Weaknes Verified 09/29/24 12:44 s simvastatin (From Zocor) AdvReac ADV-Weaknes Verified 09/29/24 12:44 s Pertinent History/Comorbid Conditions* Medical History (Updated 05/19/24 @ 12:30 by Magnus Gonzalez DPM) Essential hypertension Hypertriglyceridemia 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 Psychiatric care Yeast vaginitis Incomplete bladder emptying Opioid contract exists Renal calculi Facet arthropathy, lumbar Chronic low back pain Excoriation (skin-picking) disorder Major depressive disorder, recurrent severe without psychotic features Obstructive sleep apnea Dyslipidemia Hypertension Diabetes Hypothyroid Tachycardia Melanoma Surgical History (Updated 12/04/23 @ 14:04 by Rajesh Rosado MD) History of colonoscopy History of esophagogastroduodenoscopy (EGD) History of removal of skin mole was cancerous and had clean margins Hx of section Hx of lithotripsy Hx of lumpectomy History of tonsillectomy and adenoidectomy History of cholecystectomy History of appendectomy H/O: hysterectomy Family History (Updated 06/20/23 @ 08:28 by Robyn Milner LPN) Diabetes Grandmother Grandfather Father Clotting disorder Grandmother Dementia Grandmother Grandfather Heart disease Grandmother Chronic kidney disease (CKD) Grandfather Breast cancer Grandmother maternal Bleeding disorder Grandmother Lung disease Grandmother Mother COPD Cancer Grandmother LUNG CANCER Grandfather PROSTATE CANCER Hypertension Father Mother Denies family history of Suicide Stroke Social History Smoking and tobacco/nicotine status: never used tobacco/nicotine Alcohol intake: never Substance/Drug Use: never Pertinent Exam Findings alert, oriented x 3, clear to auscultation bilaterally, regular rate & rhythm and procedure specific exam findings abdomen soft, nt, nd Recommendations Risks and benefits of procedure reviewed Surgery/Procedure today Other Plans: Will proceed with EGD as part of heartburn workup. Will defer colonoscopy for now Coding Level of Care Code Acute Code for Chg Fwd
[2024-09-29] MEDS: sodium chloride 0.9% 250 ML 30 ML IV (13:03)
[2024-09-29 13:10] LABS: Glucose Point of Care 194 mg/dL (70-110)
--- NOTE | 2024-09-29 13:58 | ANES.PREANE2 ---
Pre-Anesthetic Assessment Height/Weight: Height 5 ft 6 in Weight 323 lb Temp Pulse Resp BP Pulse Ox O2 Del Method 97.3 F L 98 17 145/92 98 Room Air 09/29/24 12:53 09/29/24 12:53 09/29/24 12:53 09/29/24 12:53 09/29/24 12:53 09/29/24 12:53 Preop Diagnosis: heartburn Operation Date: 09/29/24 12:00 Proposed Procedures p EGD 52589 K21.9(Not Applicable) - Juan Herring MD Was Beta Mak taken within 24 hours: Yes Was Clonidine taken within 24 hours: N/A Last intake: Intake Last Liquid Date 09/28/24 Last Liquid Time 23:50 Last Solid Date 09/28/24 Last Solid Time 23:50 Social No alcohol and No tobacco Exam alert, oriented x 3, clear to auscultation bilaterally and regular rate & rhythm Airway Submandibular: within normal limits Cervical ROM: within normal limits Mallampati: Class III Comments: Comments: Edentulous Anesthetic Plan ASA status: 3 Anesthesia: MAC Other: No prior issues with anesthesia NPO since yesterday History of GERD, uncontrolled Hypertension on metoprolol Insulin-dependent diabetes, BS 195 BMI 52 Plan for MAC anesthesia Medications/Allergies Home Medications ?Medication ?Instructions ?Recorded ?Confirmed ?Last Taken ?Type allopurinol 300 mg tablet 300 mg PO BEDTIME 07/07/19 09/29/24 09/27/24 History denosumab 60 mg/mL subcutaneous 60 mg SUBCUT .COMPLEX 07/07/19 09/29/24 09/23/23 History syringe (Prolia) gabapentin 300 mg capsule 600 mg PO TID 07/07/19 09/29/24 09/28/24 History insulin aspart U-100 100 unit/mL 50 unit SUBCUT BID 07/07/19 09/29/24 09/28/24 History (3 mL) subcutaneous pen (Novolog FlexPen U-100 Insulin aspart) insulin lispro 100 unit/mL 15 unit SUBCUT TIDWM 07/07/19 09/29/24 09/28/24 History subcutaneous solution (Humalog U-100 Insulin) levothyroxine 100 mcg tablet 100 mcg PO DAILY 07/07/19 09/29/24 09/29/24 History (Synthroid) tamsulosin 0.4 mg capsule (Flomax) 0.4 mg PO BID 07/24/19 09/28/24 09/28/24 History levocetirizine 5 mg tablet (Xyzal) 5 mg PO DAILY 12/09/19 09/29/24 09/28/24 History albuterol sulfate 90 mcg/actuation 2 puff inhalation QID PRN 06/03/21 09/29/24 09/23/23 History aerosol inhaler Shortness Of Breath cetirizine 10 mg tablet 10 mg PO DAILY PRN Allergy Symptoms 06/03/21 09/29/24 09/23/23 History docusate sodium 100 mg capsule 300 mg PO BEDTIME 06/03/21 09/29/24 09/27/24 History spironolactone 100 mg tablet 100 mg PO DAILY 06/03/21 09/28/24 09/28/24 History aspirin 81 mg chewable tablet 81 mg PO DAILY 11/29/21 09/29/24 09/28/24 History ibuprofen 200 mg tablet 200 mg PO Q6H PRN Pain 11/29/21 09/29/24 09/28/24 History Held on 09/25/23. Instructions: Resume on 09/28/23. Diabetic Shoes with 3 inserts #1 ea 12/13/21 09/28/24 09/24/23 Rx Diabetic Shoes with Inserts #1 ea 12/13/21 09/28/24 09/24/23 Rx lactobacillus combination no.4 3 3,000 mmu cells PO DAILY 02/05/22 09/29/24 09/28/24 History billion cell capsule (Probiotic) acyclovir 400 mg tablet 400 mg PO DAILY 05/31/22 09/29/24 09/27/24 History ASO to left #1 ea 09/11/22 09/28/24 09/28/24 Rx naloxone 4 mg/actuation nasal 4 mg intranasal Q2M PRN 09/23/23 09/29/24 09/23/23 History spray (Narcan) oversedation omeprazole magnesium 20 mg 20 mg PO DAILY 12/04/23 09/29/24 09/29/24 History capsule,delayed release hydrochlorothiazide 12.5 mg tablet 6.25 mg (1/2 x 12.5 mg) PO QAM 04/03/24 09/29/24 09/28/24 Rx Blood Pressure #90 tabs 4E Diabetic shoes with 1 pair of #1 ea 05/18/24 09/28/24 09/28/24 Rx custom molded accommodative orthotics venlafaxine 150 mg 150 mg PO DAILY #30 caps 08/19/24 09/29/24 09/29/24 Rx capsule,extended release 24 hr blood-glucose sensor (Dexcom G6 #9 ea 09/14/24 09/28/24 09/28/24 Rx Sensor device) tirzepatide (weight loss) 2.5 2.5 mg (0.5 mL) SUBCUT Q7D 1 month 09/14/24 09/28/24 Unknown Rx mg/0.5 mL subcutaneous pen #2.5 mL injector (Track the Bet) pantoprazole 40 mg tablet,delayed 40 mg PO BID 30 days #60 tabs 09/24/24 09/28/24 Unknown Rx release sucralfate 1 gram tablet (Carafate) 1 g PO BID 30 days #60 tabs 09/24/24 09/29/24 Unknown Rx clindamycin phosphate 1 % lotion 1 applic topical BID PRN Rash 09/28/24 09/29/24 Unknown History infliximab-abda 100 mg intravenous 100 mg IV .Q6WKS 09/28/24 09/29/24 Unknown History solution (Renflexis) ivabradine 5 mg tablet (Corlanor) 5 mg PO BID #180 tabs 09/28/24 09/29/24 Unknown Rx metoprolol tartrate 25 mg tablet 12.5 mg (1/2 x 25 mg) PO TID #135 09/28/24 09/29/24 09/29/24 Rx tabs mupirocin 2 % topical ointment 1 applic topical BID PRN Rash 09/28/24 09/29/24 Unknown History triamcinolone acetonide 0.1 % 1 applic topical DAILY PRN Rash 09/28/24 09/29/24 Unknown History topical cream venlafaxine 75 mg capsule,extended 75 mg PO BEDTIME 09/28/24 09/29/24 09/28/24 History release 24 hr Allergies Allergy/AdvReac Type Severity Reaction Status Date / Time hydromorphone Allergy Severe ADR-Headach Verified 09/29/24 12:44 e adhesive Allergy Intermediate ALGY-Bliste Verified 09/29/24 12:44 r lactose Allergy Mild sick to Verified 09/29/24 12:44 stomach amoxicillin (From Augmentin) Allergy vomiting/ra Verified 09/29/24 12:44 sh clavulanic acid (From Allergy vomiting/ra Verified 09/29/24 12:44 Augmentin) sh lactase (From Dairy Aid) Allergy sick to Verified 09/29/24 12:44 stomach latex Allergy rash Verified 09/29/24 12:44 Penicillins Allergy rash/vomiti Verified 09/29/24 12:44 ng Sulfa (Sulfonamide Allergy ADR-Heartbu Verified 09/29/24 12:44 Antibiotics) rn leflunomide AdvReac Intermediate HAIR LOSS Verified 09/29/24 12:44 rosuvastatin (From Crestor) AdvReac ADV-Weaknes Verified 09/29/24 12:44 s simvastatin (From Zocor) AdvReac ADV-Weaknes Verified 09/29/24 12:44 s Current Medications Generic Name Dose Route Start Last Admin Trade Name Freq PRN Reason Stop Dose Admin Sodium Chloride 250 mls @ 30 mls/hr 09/29/24 13:00 09/29/24 13:03 Sodium Chloride 0.9% IV 30 mls/hr .Q8H20M ADRIAN Administration PFSH Anesthesia Medical History Essential hypertension Hypertriglyceridemia 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 Psychiatric care Yeast vaginitis Incomplete bladder emptying Opioid contract exists Renal calculi Facet arthropathy, lumbar Chronic low back pain Excoriation (skin-picking) disorder Major depressive disorder, recurrent severe without psychotic features Obstructive sleep apnea Dyslipidemia Hypertension Diabetes Hypothyroid Tachycardia Melanoma Surgical History History of colonoscopy History of esophagogastroduodenoscopy (EGD) History of removal of skin mole was cancerous and had clean margins Hx of section Hx of lithotripsy Hx of lumpectomy History of tonsillectomy and adenoidectomy History of cholecystectomy History of appendectomy H/O: hysterectomy Family History Grandmother Cancer LUNG CANCER Diabetes Heart disease Bleeding disorder Clotting disorder Lung disease Dementia Breast cancer maternal Grandfather Cancer PROSTATE CANCER Diabetes Chronic kidney disease (CKD) Dementia Father Diabetes Hypertension Mother Lung disease COPD Hypertension Denies family history of Suicide Stroke Social History Smoking and tobacco/nicotine status: never used tobacco/nicotine Alcohol intake: never Substance/Drug Use: never Data Anesthesia Cardiac Studies: Cardiac Event Monitor 05/31/22
[2024-09-29 15:07] VITALS: BP 105/67; PULSE 91; RESP 20; TEMP 36.1; O2SAT 96
[2024-09-29 15:20] VITALS: BP 118/72; PULSE 89; RESP 18; O2SAT 99
== END 2024-09-29 15:45 | disposition home or self-care (01) ==
PROVIDERS: PCP Internal Medicine; Visit Provider Student in an Organized Health Care Education/Training Program
PROC: 0DJ08ZZ Inspection of Upper Intestinal Tract, Via Natural or Artificial Opening Endoscopic (ICD-10-PCS; principal; 2024-09-29 12:00)
DX: K29.50 Unspecified chronic gastritis without bleeding (principal); K21.9 Gastro-esophageal reflux disease without esophagitis; I10 Essential (primary) hypertension; L40.50 Arthropathic psoriasis, unspecified; E78.5 Hyperlipidemia, unspecified; E03.9 Hypothyroidism, unspecified; E11.40 Type 2 diabetes mellitus with diabetic neuropathy, unspecified; Z79.899 Other long term (current) drug therapy; Z79.4 Long term (current) use of insulin; Z79.890 Hormone replacement therapy; Z79.82 Long term (current) use of aspirin; Z88.5 Allergy status to narcotic agent; Z88.2 Allergy status to sulfonamides; Z88.8 Allergy status to other drugs, medicaments and biological substances; Z88.0 Allergy status to penicillin
CPT/HCPCS: 36416; 43239; 82962; 88305; 88342; J2704; J7050

== ENCOUNTER → 2024-10-15 10:06 | Outpatient (BNVA) | payer MEDICAID, SELFPAY | PROVIDERS: PCP Internal Medicine; Visit Provider Student in an Organized Health Care Education/Training Program | DX: E03.9 Hypothyroidism, unspecified (principal); E55.9 Vitamin D deficiency, unspecified; M81.0 Age-related osteoporosis without current pathological fracture; E78.2 Mixed hyperlipidemia; E11.22 Type 2 diabetes mellitus with diabetic chronic kidney disease; N18.30 Chronic kidney disease, stage 3 unspecified; E66.01 Morbid (severe) obesity due to excess calories; Z68.42 Body mass index [BMI] 45.0-49.9, adult; E11.9 Type 2 diabetes mellitus without complications; E11.42 Type 2 diabetes mellitus with diabetic polyneuropathy; E16.0 Drug-induced hypoglycemia without coma; T38.3X5A Adverse effect of insulin and oral hypoglycemic [antidiabetic] drugs, initial encounter; X58.XXXA Exposure to other specified factors, initial encounter; Z09 Encounter for follow-up examination after completed treatment for conditions other than malignant neoplasm | CPT/HCPCS: 99213; 99214 ==

== ENCOUNTER 2024-11-09 09:15 | Oncology outpatient (recurring) (ONCR) | payer MEDICAID, SELFPAY ==
[2024-10-26 09:57] LABS: Basophils # 0.1 10^3/uL (0.0-0.1); Eosinophils # 0.2 10^3/uL (0.0-0.8); Eosinophils % 2.4 %; Hematocrit 37.1 % (36-47); Lymphocytes # 2.9 10^3/uL (0.8-4.8); Lymphocytes % 40.1 %; Mean Corpuscular HGB Conc 30.2 g/dL (30-55); Mean Corpuscular Hemoglobin 24.7 pg (27-33); Mean Corpuscular Volume 81.9 fl (85-98); Mean Platelet Volume 9.2 fL (7.4-10.4); Monocytes # 0.4 10^3/uL (0.2-0.9); Monocytes % 5.6 %; Neutrophils # 3.61 10^3/uL (1.8-7.7); Neutrophils % 50.5 %; Nucleated Red Blood Cells % 0 %; Platelet Count 200 10^3/cmm (157-399); Red Blood Count 4.53 10^6/uL (3.85-5.65); Red Cell Distribution Width 16.1 % (12.1-15.1); White Blood Count 7.14 10^3/uL (3.29-11.43)
[2024-10-26] MEDS: acetaminophen 325 mg Tablet 650 MG PO (10:05)
[2024-10-26] MEDS: diphenhydrAMINE 50 mg/mL SDV 1mL 25 MG IVP (10:06)
[2024-10-26] MEDS: sodium chloride 0.9% 250 ML 75 ML IV (10:06)
[2024-10-26] MEDS: methylPREDNISolone sod succ 40 mg/mL INJ 20 MG IVP (10:07)
[2024-10-26 10:14] LABS: Alanine Aminotransferase 23 U/L (0-33); Albumin Level 3.6 g/dL (3.5-5.2); Alkaline Phosphatase 80 U/L (35-105); C Reactive Protein 7.6 mg/L (0.0-4.9); Globulin 2.9 g/dL (1.3-4.6); Glomerular Filtration Rate 65.5 mL/min (90-130); Total Bilirubin 0.2 mg/dL (0.15-1.2); Total Protein 6.5 g/dL (6.6-8.7)
[2024-10-26 10:16] LABS: Aspartate Amino Transferase 22 U/L (0-32)
[2024-10-26 10:25] LABS: Erythrocyte Sedimentation Rate 49 mm/hr (0-15)
[2024-10-26] MEDS: infliximab-abda 700 MG in sodium chloride 0.9% 250 ML 250 MG IV (10:39)
[2024-10-26 12:10] VITALS: BP 111/66; PULSE 77; RESP 18; TEMP 36.5; O2SAT 95
--- NOTE | 2024-11-09 09:15 | USCV_ITS ---
Santiago Arndt Age: 54 Gender: F : 1970 Exam Date: 11/09/2024 09:33 Ordering Phys: Paulo Turner MD ([email or web address]) Technologist: [place] [facility] [place]: high rish meds tach BP: 110 / 60 HR: Rhythm: Sinus Technical Quality: Adequate MEASUREMENTS (Male / Female) Normal Values 2D ECHO LV Diastolic Diameter PLAX 3.7 cm 4.2 - 5.9 / 3.9 - 5.3 cm IVS Diastolic Thickness 1.4 cm 0.6 - 1.0 / 0.6 - 0.9 cm IVS Systolic Thickness 1.3 cm LVPW Diastolic Thickness 1.4 cm 0.6 - 1.0 / 0.6 - 0.9 cm LVPW Systolic Thickness 1.8 cm LVOT Diameter 2.0 cm LV Ejection Fraction 2D Teich 64.2 % LV Ejection Fraction MOD 4C 62.5 % LV Ejection Fraction MOD 2C 70.9 % LV Ejection Fraction 2C AL 72.1 % LA Diameter 3.1 cm RA Systolic Volume 4C AL 38.2 ml RA Systolic Volume 4C MOD 37.1 ml LA Sys Volume AL 49.9 cm cubed LA Sys Volume Index AL 18.6 cm cubed/m squared Aorta at Sinotubular Diameter 3.1 cm M-MODE LA Ao Ratio MM 1.3 AV Cusp Separation MM 2.1 cm FINDINGS Left Ventricle Normal LV size and ejection fraction of 67 %, by MOD.no regional wall motion abnormalities. Right Ventricle Normal right ventricular size and systolic function. Right Atrium The right atrium is normal in size. Left Atrium The left atrium is normal in size. Mitral Valve Mild mitral annular calcification. Aortic Valve No gross abnormalities noted Tricuspid Valve No gross abnormalities noted Pulmonic Valve Pulmonic valve not well visualized. Pericardium No pericardial effusion. Aorta Normal aortic annulus size. IVC Inferior vena cava not visualized. CONCLUSIONS Normal LV size and ejection fraction of 67 %, by MOD.no regional wall motion abnormalities. Mild mitral annular calcification. Possibly normal chamber sizes. There is no pericardial effusion. There are no intracardiac masses. Compared to the study from 04/13/2016, there may not be a significant change. Dr Marley Karimi MD FACC (Electronically Signed) Final Date: 10 Nov 2024 07:54 S
== END 2024-11-21 23:59 | disposition home or self-care (01) ==
LOC: ONCMED 09:24 → RAD 11-10 → ONCMED 11-10 09:53
PROVIDERS: Internal Medicine Rheumatology; PCP Internal Medicine; Visit Provider Internal Medicine Cardiovascular Disease
DX: R00.0 Tachycardia, unspecified (principal); R06.02 Shortness of breath; E11.8 Type 2 diabetes mellitus with unspecified complications; E11.42 Type 2 diabetes mellitus with diabetic polyneuropathy; I73.9 Peripheral vascular disease, unspecified; M72.2 Plantar fascial fibromatosis; M20.41 Other hammer toe(s) (acquired), right foot; M20.42 Other hammer toe(s) (acquired), left foot; M21.621 Bunionette of right foot; M21.622 Bunionette of left foot; M21.41 Flat foot [pes planus] (acquired), right foot; M21.42 Flat foot [pes planus] (acquired), left foot; Z79.4 Long term (current) use of insulin; Z79.899 Other long term (current) drug therapy
CPT/HCPCS: 80076; 82565; 85025; 85651; 86140; 93306; 96375; 96413; 99213; A4222; J1200; J2919; J7050; J9999; Q5104

== ENCOUNTER → 2024-11-26 08:30 | Outpatient (BNVA) | payer MEDICAID, SELFPAY | PROVIDERS: PCP Internal Medicine; Visit Provider Podiatrist Foot & Ankle Surgery | DX: M20.41 Other hammer toe(s) (acquired), right foot (principal); M20.42 Other hammer toe(s) (acquired), left foot; E11.42 Type 2 diabetes mellitus with diabetic polyneuropathy; I73.9 Peripheral vascular disease, unspecified; M72.2 Plantar fascial fibromatosis; M21.621 Bunionette of right foot; M21.622 Bunionette of left foot; M21.41 Flat foot [pes planus] (acquired), right foot; M21.42 Flat foot [pes planus] (acquired), left foot; Z79.4 Long term (current) use of insulin | CPT/HCPCS: 28010; 28011; J9999 ==

== ENCOUNTER 2024-12-01 10:01 | Outpatient (CLI) | payer MEDICAID, SELFPAY ==
[2024-12-01 12:02] LABS: Estmated Average Glucose 146; Hemoglobin A1C 6.7 % (4.0-6.0)
[2024-12-01 12:15] LABS: Creatinine Urine, Random 76 mg/dL (28-217); Microalbum Creatinine Ratio Ur 13 mg/dL (0-20); Microalbumin Random Urine 1 ug/dL (0-20)
[2024-12-01 12:31] LABS: 25 Hydroxy Vitamin D 26 ng/mL (30-100); Alanine Aminotransferase 19 U/L (0-33); Albumin Level 3.8 g/dL (3.5-5.2); Alkaline Phosphatase 96 U/L (35-105); Anion Gap 17.4 (5-19); Aspartate Amino Transferase 20 U/L (0-32); Blood Urea Nitrogen 11 mg/dL (6-20); Calcium 9.4 mg/dL (8.5-10.5); Carbon Dioxide 26 mmol/L (22-29); Chloride 98 mmol/L (98-107); Chol HDL Ratio 4.52 mg/dL (0.0-4.40); Cholesterol 217 mg/dL (0-200); Globulin 3.3 g/dL (1.3-4.6); Glucose 127 mg/dL (65-115); HDL Cholesterol 48 mg/dL (60-100); LDL Cholesterol Calculated 125 mg/dL (50-129); Osmolality Calculated 287 mOsm/kg (285-295); Potassium 3.4 mmol/L (3.5-5.1); Sodium 138 mmol/L (136-145); Thyroid Stimulating Hormone 2.28 uIU/mL (0.27-4.20); Total Bilirubin 0.3 mg/dL (0.15-1.2); Total Protein 7.1 g/dL (6.6-8.7); Triglycerides 218 mg/dL (0-150)
[2024-12-01 13:57] LABS: Free T4 Free Thyroxine 0.93 ng/dL (0.82-1.77)
== END 2024-12-01 10:02 | disposition home or self-care (01) ==
LOC: LAB 10:03
PROVIDERS: PCP Internal Medicine; Visit Provider Internal Medicine
DX: E03.9 Hypothyroidism, unspecified (principal)
CPT/HCPCS: 80053; 80061; 82044; 82306; 83036; 84439; 84443

== ENCOUNTER 2024-12-21 13:00 | Oncology outpatient (recurring) (ONCR) | payer MEDICAID, SELFPAY ==
[2024-12-14] MEDS: sodium chloride 0.9% 250 ML 75 ML IV (12:05)
[2024-12-14] MEDS: diphenhydrAMINE 50 mg/mL SDV 1mL 25 MG IVP (12:05)
[2024-12-14] MEDS: acetaminophen 325 mg Tablet 650 MG PO (12:05)
[2024-12-14] MEDS: methylPREDNISolone sod succ 40 mg/mL INJ 20 MG IVP (12:11)
[2024-12-14] MEDS: infliximab-abda 800 MG in sodium chloride 0.9% 150 ML 150 MG IV (12:46)
[2024-12-14 14:19] VITALS: BP 111/70; PULSE 88; RESP 16; TEMP 35.9; O2SAT 98
[2024-12-21 14:05] VITALS: BP 132/74; PULSE 68; RESP 16; TEMP 36.6
[2024-12-21] MEDS: denosumab 60 mg SDV SUBCUT (14:05)
== END 2024-12-21 23:59 | disposition home or self-care (01) ==
PROVIDERS: PCP Internal Medicine; Visit Provider Internal Medicine
DX: L40.50 Arthropathic psoriasis, unspecified (principal); Z79.899 Other long term (current) drug therapy; Z53.9 Procedure and treatment not carried out, unspecified reason
CPT/HCPCS: 96365; 96366; 96372; 96375; 99214; A4222; J0897; J1200; J2919; J7050; J9999; Q5104

== ENCOUNTER 2024-12-29 14:53 | Outpatient (CLI) | payer MEDICAID, SELFPAY ==
--- NOTE | 2024-12-29 13:20 | MM_ITS ---
WS: [id number] BILATERAL 3D TOMOSYNTHESIS DIGITAL SCREENING MAMMOGRAPHY WITH CAD CLINICAL INFORMATION: SCREENING HISTORY: Screening mammogram. No current complaints. COMPARISON: 2023 TECHNIQUE: Bilateral CC and MLO views. FINDINGS: Scattered fibroglandular densities bilaterally. No suspicious focal mass, asymmetry, calcifications, or architectural distortion. No evidence of malignancy. Few incidental punctate calcifications. Prior lumpectomy LEFT breast. MM/MM scr BI tomosynthesis [id number] IMPRESSION: DENSITY: There are scattered areas of fibroglandular density. BI-RADS: 2 - Benign. FOLLOW UP: 1 Year Follow-up Recommend return to annual screening mammography.
== END 2024-12-29 14:54 | disposition home or self-care (01) ==
LOC: MOBLMAM 14:54
PROVIDERS: PCP Internal Medicine; Visit Provider Internal Medicine
DX: Z12.31 Encounter for screening mammogram for malignant neoplasm of breast (principal); R92.323 Mammographic fibroglandular density, bilateral breasts; R92.1 Mammographic calcification found on diagnostic imaging of breast; Z98.890 Other specified postprocedural states
CPT/HCPCS: 77063; 77067

== ENCOUNTER → 2025-01-04 14:13 | Outpatient (BNVA) | payer MEDICAID, SELFPAY | PROVIDERS: PCP Internal Medicine; Visit Provider Nurse Practitioner | DX: M17.0 Bilateral primary osteoarthritis of knee (principal) | CPT/HCPCS: 20610; J1100; J2795; J3301; J9999 ==

== ENCOUNTER 2025-01-09 07:39 | Outpatient (CLI) | payer MEDICAID, SELFPAY ==
[2025-01-09 09:00] LABS: Estmated Average Glucose 143; Hemoglobin A1C 6.6 % (4.0-6.0)
[2025-01-09 09:02] LABS: Creatinine Urine, Random 143 mg/dL (28-217); Microalbum Creatinine Ratio Ur 7 mg/dL (0-20)
[2025-01-09 09:22] LABS: Alanine Aminotransferase 21 U/L (0-33); Albumin Level 3.7 g/dL (3.5-5.2); Alkaline Phosphatase 112 U/L (35-105); Anion Gap 15.9 (5-19); Aspartate Amino Transferase 16 U/L (0-32); Blood Urea Nitrogen 13 mg/dL (6-20); Calcium 8.9 mg/dL (8.5-10.5); Carbon Dioxide 25 mmol/L (22-29); Chloride 104 mmol/L (98-107); Cholesterol 213 mg/dL (0-200); Globulin 3.6 g/dL (1.3-4.6); Glucose 149 mg/dL (65-115); HDL Cholesterol 51 mg/dL (60-100); Osmolality Calculated 295 mOsm/kg (285-295); Potassium 3.9 mmol/L (3.5-5.1); Sodium 141 mmol/L (136-145); Thyroid Stimulating Hormone 2.27 uIU/mL (0.27-4.20); Total Protein 7.3 g/dL (6.6-8.7); Triglycerides 178 mg/dL (0-150)
[2025-01-09 10:40] LABS: Free T4 Free Thyroxine 0.94 ng/dL (0.82-1.77)
== END 2025-01-09 07:40 | disposition home or self-care (01) ==
PROVIDERS: PCP Internal Medicine; Visit Provider Internal Medicine
DX: E11.42 Type 2 diabetes mellitus with diabetic polyneuropathy (principal); M81.0 Age-related osteoporosis without current pathological fracture; E03.9 Hypothyroidism, unspecified; E55.9 Vitamin D deficiency, unspecified
CPT/HCPCS: 36415; 80053; 80061; 82044; 82306; 83036; 84439; 84443

== ENCOUNTER → 2025-01-11 07:55 | Outpatient (BNVA) | payer MEDICAID, SELFPAY | PROVIDERS: PCP Internal Medicine; Visit Provider Internal Medicine | DX: E11.42 Type 2 diabetes mellitus with diabetic polyneuropathy (principal); E16.0 Drug-induced hypoglycemia without coma; E11.22 Type 2 diabetes mellitus with diabetic chronic kidney disease; N18.30 Chronic kidney disease, stage 3 unspecified; E78.2 Mixed hyperlipidemia; E03.9 Hypothyroidism, unspecified; E55.9 Vitamin D deficiency, unspecified; E66.01 Morbid (severe) obesity due to excess calories; Z68.42 Body mass index [BMI] 45.0-49.9, adult | CPT/HCPCS: 99214 ==

== ENCOUNTER 2025-01-24 11:15 | Emergency (ER) | payer MEDICAID, SELFPAY ==
--- OUTSIDE RECORDS SUMMARY | 2023-11-08 06:45 | XMS_ITS | Continuity of Care Document ---
Author Organization [facility] Address [address] [id number] [address] Phone Care Team Providers Care Qm Consultant Name Role Phone Klever Markham DDS Unavailable Unavailable Allergies, Adverse Reactions, Alerts Substance Reaction Status Criticality latex Active No Information SULFUR Active No Information PENICILLIN Active No Information Medications Medication Instructions Dosage Effective Dates (start - stop) Status Comments Flomax 0.4 mg capsule take 1 capsule by oral route every day 1/2 hour following the same meal each day 0.4 MG - Active Effexor XR 150 mg capsule,extended release take 1 capsule by oral route every day 150 MG - Active gabapentin 300 mg capsule take 1 capsule by oral route 3 times every day 300 MG - Active Xyzal 5 mg tablet take 1 tablet by ora l route every 2 days in the evening 5 MG - Active Procedures Procedure Date Comprehensive Oral Evaluatio n New Or Established Caries Low Risk Exempt From Sealant Measure Panoramic Film Advance Directives Directive Yes / No Effective Date File Name No Information Encounters Encounter Description Practice Location Reason(s) For Visit Diagnoses Date Provider Providers Copied on Encounter [facility], [id number], [id number], [place] tel:[phone] Encounter for dental exam and cleaning w/o abnormal findings [facility]. [address] [place] [address], [place]. tel:[phone] Referring Provider: Klever Markham, [address] [place], [address]. tel:[phone] Family History Family Member Type Diagnosis Age At Onset No Information Payers Payer name Insurance type Covered green party ID Wilton santos(s) D Medicaid [id number] Social History Type Description Quantity Date Captured Comments Alcohol Use Details No Caffeine Use Details Unknown Tobacco Use Status Current non-smoker Smoking Status Never smoker Non-Smoking Tobacco Use Details : No Details Available : No Details Available Sex Female Sexual Orientation Heterosexual Gender Identity Female Chief Complaint And Reason For Visit No Information Reason For Referral Reason For Referral No Information History Of Present Illness Encounter Date Complaint History Of Prese nt Illness No Information Functional Status Date Functional Assessmen t No Information Instructions Date Instruction Additional Infor mation No Information Assessments Type Assessment Date No Information Patient Care Teams Name Effective Dates (start - stop) Status Members No Information
--- OUTSIDE RECORDS SUMMARY | 2025-01-24 11:23 | XMS_ITS | Encounter Summary ---
Author Organization [facility] Address [address] [place] [address] Care Team Providers Care Sheep Boner Name Role Phone Laney Smith MD Primary Care Provider +1- [phone] Encounter Details Date Type Department Care Team (Latest Contact Info) Description 02/16/1999 Outpatient Historical [facility] Parth Rashid MD [address] [place] [address] Helicobacter pylori (H. 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
--- OUTSIDE RECORDS SUMMARY | 2025-01-24 11:23 | XMS_ITS | Encounter Summary ---
Author Organization [facility] Address [address] [place] [address] Care Team Providers Care Printed Circuit Boards Plasma Etcher Name Role Phone Laney Smith MD Primary Care Provider +1- [phone] Encounter Details Date Type Department Care Team (Latest Contact Info) Description 01/05/1999 Outpatient Historical [facility] Parth Rashid MD [address] [place] [address] Dyspepsia and other specified disorders of function of stomach (Primary Dx); Obesity, unspecified Social History Tobacco Use Types Packs/Day Years Used Date Smoking Tobacco: Never Assessed Comments Unknown Sex and Gender Information Value Date Recorded Sex Assigned at Not on file Legal Sex Female 5:57 AM BRAKE COUPLER DINKEY Gender Identity Not on file Sexual Orientation Not on file documented as of this encounter Plan of Treatment Not on file documented as of this encounter Visit Diagnoses Diagnosis Dyspepsia and other specified disorders of function of stomach- Primary Obesity, unspecified documented in this encounter Care Teams Printed Circuit Boards Plasma Etcher Relationship Specialty Start Date End Date Laney Smith MD [address] [place] [address] PCP - General Internal Medicine 12/29/18 documented as of this encounter
--- OUTSIDE RECORDS SUMMARY | 2025-01-24 11:23 | XMS_ITS | Clinical Summary ---
Author Organization [facility] Address [address] [place] [address] Phone Care Team Providers Care Colorectal Surgeon Name Role Phone Laney Smith MD Primary Care Provider +1- [phone] Allergies Active Allergy Reactions Criticality Noted Date Comments Erythromycin Nausea and Vomiting Low 02/24/2010 Latex Rash High 02/24/2010 Levofloxacin Rash Low 02/24/2010 Lorcet (Propoxyphene) Arrhythmia High 02/24/2010 Meperidine Other (See Comments) 02/24/2010 criies uncontrollably. Morphine Other (See Comments) 02/10/2013 Penicillins Hives High 02/24/2010 Sulfa (Sulfonamide Antibiotics) Rash Low 04/25/2011 Medications levothyroxine 100 mcg tablet Take 100 mcg by mouth daily in the morning. Active allopurinoL (ZYLOPRIM) 300 mg tablet Take 300 mg by mouth daily. Active denosumab (PROLIA) 60 mg/mL Syringe Inject 60 mg by subcutaneous injection one time only. Every 6 months Active tamsulosin (FLOMAX) 0.4 mg capsule Take 0.4 mg by mouth daily. Takes BID Active Cholecalcifero l, Vitamin D3, (VITAMIN D3) 10 mcg (400 unit) capsule Take 125 Units by mouth. Active venlafaxine (EFFEXOR) 75 mg tablet Take 75 mg by mouth 3 times daily. 150 IN THE MORNING 75 IN EVENING Active cyclobenzaprin e (FLEXERIL) 10 mg tablet Take 10 mg by mouth 3 times daily as needed. Active venlafaxine (EFFEXOR XR) 150 mg Extended Release 24 hour capsule Take 150 mg by mouth daily. Active fluticasone propionate (FLONASE) 50 mcg/spray [place], Suspension nasal inhaler Administer 2 Sprays in each nostril daily. Active acetaminophen (TYLENOL) 325 mg tablet Take 2 Tablets (650 mg) by mouth every 4 hours as needed for Pain or Temperature (100.4). 1 Active gabapentin (NEURONTIN) 300 mg capsule Take 2 Capsules (600 mg) by mouth 3 times daily. 90 Capsule 1 Active Additional Information Patient taking differently: 900 mgOral THREE TIMES DAILY, Reported on 12/13/2023 insulin lispro (HumaLOG) 100 unit/mL pen syringe Inject 0-9 Units by subcutaneous injection 3 times daily with meals. 15 mL 1 Active insulin glargine (LANTUS) 100 unit/mL injection Inject 10 Units by subcutaneous injection 2 times daily. 15 mL 1 Active Saccharomyces boulardii (FLORASTOR) 250 mg Capsule Take 1 Capsule (250 mg) by mouth 2 times daily. 20 Capsule 1 Active hydroCHLOROthi azide (MICROZIDE) 12.5 mg capsule Take 12.5 mg by mouth daily. 5 Active fluconazole (DIFLUCAN) 150 mg tablet Take 1 Tablet (150 mg) by mouth see administration instructions Take 1 Tab by mouth for 3 days. [place] as needed.. 3 Tablet 3 5 Active metoprolol succinate (TOPROL XL) 50 mg Extended Release 24 hour tablet Take 1 Tablet by mouth. 9 Active calcium as carbonate (TUMS ULTRA) 1,000 mg (400 mg elemental) Tablet, Chewable 1 (one) time 9 Active aspirin (ECOTRIN EC) 81 mg Tablet, Delayed Release (E.C.) Take 81 mg by mouth daily. Active Levothyroxine 100 mcg Capsule daily in the morning. Active spironolactone (ALDACTONE) 100 mg tablet Take 100 mg by mouth daily. 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 Encounters Date Type Department Care Team Description 01/12/2025 Orders Only [facility] Admitting [address] [facility] [address] [place] [id number] Salvador Ramsey, Lumbar spondylosis (Primary Dx) 01/06/2025 External Device Data ST[facility] ABSTRACTION Provider, Abstract 01/06/2025 External Device Data ST[facility] ABSTRACTION Provider, Abstract 12/09/2024 External Device Data ST[facility] ABSTRACTION Provider, Abstract from Last 3 Months Immunizations Immunization Administration Dates Next Due Influenza Seasonal Unspecified Formulation IM Social History Tobacco Use Types Packs/Day Years Used Date Smoking Tobacco: Never Smokeless Tobacco: Never Tobacco Cessation:Counseling Given: No Alcohol Use Standard Drinks/Week Comments No 0 (1 standard drink = 0.6 oz pur e alcohol) Comments Unknown Sex and Gender Information Value Date Recorded Sex Assigned at Not on file Legal Sex Female 2:58 PM SAIL REPAIRER Gender Identity Not on file Sexual Orientation Not on file Last Filed Vital Signs Vital Sign Reading Time Taken Comments Blood Pressure 126/88 07/10/2024 9:41 AM SAIL REPAIRER Pulse 90 07/10/2024 9:41 AM SAIL REPAIRER Temperature 36.4 C (97.5 F) 12/13/2023 11:14 AM CDT Respiratory Rate 20 12/13/2023 11:14 AM CDT Oxygen Saturation 99% 07/10/2024 9:41 AM SAIL REPAIRER Inhaled Oxygen Concentration - - Weight 144.7 kg (319 lb) 07/10/2024 9:41 AM SAIL REPAIRER Height 165.1 cm (5' 5 ) 07/10/2024 9:41 AM SAIL REPAIRER Body Mass Index 53.08 07/10/2024 9:41 AM SAIL REPAIRER Plan of Treatment Upcoming Encounters Date Type Department Care Team (Late st Contact Info) Description 02/03/2025 12:15 PM CDT Appointment [facility] [address] [facility] [address] [place] [id number] Salvador Ramsey DO [address] [place] [phone] 03/26/2025 2:30 PM CDT Office Visit [facility] [address] [place] [address] Silvia Schaeffer, TONSORIAL ARTIST [address] [place] [address] Health Maintenance Due Date Last Done Comments DIABETES ANNUAL FOOT EXAM 09/11/1989 DIABETES ANNUAL RETINAL EXAM 09/11/1989 DIABETES MICROALBUMIN ANNUAL SCREEN 09/11/1989 LDL CHOLESTEROL ANNUAL 09/11/1989 DTAP/TDAP/TD VACCINES (1 - Tdap) 09/11/1990 HEPATITIS B VACCINES (1 of 3 - 19+ 3-dose series) 09/11/1990 HPV/Cotest (21-29) 09/11/1992 CERVICAL CANCER SCREENING 09/11/2001 HPV/Cotest (30-65) 09/11/2001 PAP SMEAR 09/11/2001 BREAST CANCER SCREENING 2011 COLORECTAL SCREENING 09/11/2016 Colorectal Cancer Screening 09/11/2016 FIT-DNA Q 3 years 09/11/2016 FIT/FOBT Q 1 year 09/11/2016 Flex Sig/CT Colonography Q 5 years 09/11/2016 DIABETES HBA1C Q 6 MONTHS 01/29/2020 07/31/2019 ZOSTER VACCINE (1 of 2) 09/11/2021 COVID-19 Vaccine ( season) 2024, 08/17/2020 INFLUENZA VACCINE (#1) 2025 03/24/2002 Insurance MEDICAID [place] [facility] [employer] [facility] [employer] Medicaid Advance Directives For more information, please contact: [phone] * Full Code (Latest Code Status on File) Date Activated Date Inactivated Comments 06/04/2021 3:56 AM 06/12/2021 7:38 PM Care Teams Colorectal Surgeon Relationship Specialty Start Date End Date Laney Smith MD [address] [place] [address] PCP - General Internal Medicine 12/29/18
--- OUTSIDE RECORDS SUMMARY | 2025-01-24 11:23 | XMS_ITS | Encounter Summary ---
Author Organization [facility] Address [address] [place] [address] Care Team Providers Care Reed Fixer Name Role Phone Laney Smith MD Primary Care Provider +1- [phone] Encounter Details Date Type Department Care Team (Latest Contact Info) Description 11/17/1998 Outpatient Historical [facility] Parth Rashid MD [address] [place] [address] Unspecified sinusitis (chronic) (Primary Dx); Ganglion, unspecified Social History Tobacco Use Types Packs/Day Years Used Date Smoking Tobacco: Never Assessed Comments Unknown Sex and Gender Information Value Date Recorded Sex Assigned at Not on file Legal Sex Female 5:57 AM NECKTIE TURNER Gender Identity Not on file Sexual Orientation Not on file documented as of this encounter Plan of Treatment Not on file documented as of this encounter Visit Diagnoses Diagnosis Unspecified sinusitis (chronic)- Primary Ganglion, unspecified documented in this encounter Care Teams Reed Fixer Relationship Specialty Start Date End Date Laney Smith MD [address] [place], [place] [address] PCP - General Internal Medicine 12/29/18 documented as of this encounter
--- OUTSIDE RECORDS SUMMARY | 2025-01-24 11:23 | XMS_ITS | Encounter Summary ---
Author Organization [facility] Address [address] [place] [address] Care Team Providers Care Photography Spotter Name Role Phone Laney Smith MD Primary Care Provider +1- [phone] Encounter Details Date Type Department Care Team (Latest Contact Info) Description 10/18/1998 Outpatient Historical [facility] Parth Rashid MD [address] [place] [address] Abdominal pain, unspecified site (Primary Dx) Social History Tobacco Use Types Packs/Day Years Used Date Smoking Tobacco: Never Assessed Comments Unknown Sex and Gender Information Value Date Recorded Sex Assigned at Not on file Legal Sex Female 5:57 AM RAIL SIGNAL MECHANIC Gender Identity Not on file Sexual Orientation Not on file documented as of this encounter Plan of Treatment Not on file documented as of this encounter Visit Diagnoses Diagnosis Abdominal pain, unspecified site- Primary documented in this encounter Care Teams Photography Spotter Relationship Specialty Start Date End Date Laney Smith MD [address] [place] [address] PCP - General Internal Medicine 12/29/18 documented as of this encounter
--- OUTSIDE RECORDS SUMMARY | 2025-01-24 11:23 | XMS_ITS | Encounter Summary ---
Author Organization [facility] Address [address] [place] [address] Care Team Providers Care Sports Broadcaster Name Role Phone Laney Smith MD Primary Care Provider +1- [phone] Encounter Details Date Type Department Care Team (Latest Contact Info) Description 03/13/1999 Outpatient Historical [facility] Parth Rashid MD [address] [place] [address] Dyspepsia and other specified disorders of function of stomach (Primary Dx); Unspecified hypothyroidism Social History Tobacco Use Types Packs/Day Years Used Date Smoking Tobacco: Never Assessed Comments Unknown Sex and Gender Information Value Date Recorded Sex Assigned at Not on file Legal Sex Female 5:57 AM WELDING SPECIALIST Gender Identity Not on file Sexual Orientation Not on file documented as of this encounter Plan of Treatment Not on file documented as of this encounter Visit Diagnoses Diagnosis Dyspepsia and other specified disorders of function of stomach- Primary Unspecified hypothyroidism documented in this encounter Care Teams Sports Broadcaster Relationship Specialty Start Date End Date Laney Smith MD [address] [place] [address] PCP - General Internal Medicine 12/29/18 documented as of this encounter
--- OUTSIDE RECORDS SUMMARY | 2025-01-24 11:23 | XMS_ITS | Clinical Summary ---
Author Organization [facility] Address [address] [place] [address] Care Team Providers Care Balloon Sander Name Role Phone Laney Smith MD Primary Care Provider +1- [phone] Allergies Active Allergy Reactions Criticality Noted Date Comments Erythromycin Nausea and Vomiting Low 02/24/2010 Latex Rash High 02/24/2010 Levofloxacin Rash Low 02/24/2010 Lorcet (Propoxyphene) Arrhythmia High 02/24/2010 Meperidine Other (See Comments) 02/24/2010 criies uncontrollably. Morphine Other (See Comments) 02/10/2013 Penicillins Hives High 02/24/2010 Sulfa (Sulfonamide Antibiotics) Rash Low 04/25/2011 Medications metoprolol tartrate (LOPRESSOR) 50 mg Oral tablet Take 50 mg by mouth daily. Active levothyroxine (SYNTHROID) 100 mcg Oral tablet Take 100 mcg by mouth daily youth corrections officer. Active cyclobenzaprin e (FLEXERIL) 10 mg Oral tablet Take 10 mg by mouth 3 times daily as needed. Active aspirin (MARCELLA) 81 mg Oral Tab Take by mouth. Activ e DULOXETINE HCL (CYMBALTA ORAL) Take by mouth. Activ e insulin NPH human recomb (NOVOLIN N) 100 unit/mL Suspension 10 mL 3 times daily before meals. Active insulin glargine (LANTUS) 100 unit/mL Cartridge Inject 100 mL by subcutaneous injection daily at bedtime. Active SAXAGLIPTIN HCL (ONGLYZA ORAL) Take by mouth daily at bedtime. Active omeprazole (PRILOSEC) 10 mg Capsule, Delayed Release(E.C.) Take 10 mg by mouth 2 times daily. Active gabapentin (NEURONTIN) 300 mg capsule Take 300 mg by mouth 4 times daily. Active hydrochlorothi azide (MICROZIDE) 12.5 mg capsule Take 12.5 mg by mouth daily. Active ALLOPURINOL ORAL Take by mouth. Activ e mometasone (ELOCON) 0.1 % Ointment Apply to affected area daily Sparingly as needed for rash or insect bites. Discontinue when clear.. 45 Gram 1 5 Active fluconazole (DIFLUCAN) 150 mg tablet Take 1 Tablet (150 mg) by mouth see administration instructions Take 1 Tab by mouth for 3 days. [place] as needed.. 3 Tablet 3 5 Active spironolactone (ALDACTONE) 50 mg tablet TAKE TWO TABLETS BY MOUTH EVERY DAY FOR TREATMENT OF ACNE 60 Tablet 11 5 Active aspirin-calciu m carbonate 81 mg-300 mg calcium(777 mg) Tablet 1 Tablet. Active calcium as carbonate (TUMS ULTRA) 1,000 mg (400 mg elemental) Tablet, Chewable 1 (one) time Active ergocalciferol (VITAMIN D2) 50,000 unit capsule Take 1 Capsule by mouth. Active esomeprazole (NexIUM 24HR) 20 mg Capsule, Delayed Release(E.C.) 1 Capsule. Activ e insulin detemir U-100 (LEVEMIR U-100 INSULIN) 100 unit/mL vial Inject 25 Units by subcutaneous injection. Active venlafaxine (EFFEXOR XR) 150 mg Extended Release 24 hour capsule 1 (one) time each day Active venlafaxine (EFFEXOR) 75 mg tablet Take 75 mg by mouth. Active Onabotulinumto karol A (BOTOX) 200 unit Recon Soln Inject 155 Units by subcutaneous injection. Active metoprolol succinate (TOPROL XL) 50 mg Extended Release 24 hour tablet Take 1 Tablet by mouth. 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 04/25/2011 Immunizations Immunization Administration Dates Next Due Influenza Seasonal Unspecified Formulation IM Social History Tobacco Use Types Packs/Day Years Used Date Smoking Tobacco: Never Smokeless Tobacco: Never Alcohol Use Standard Drinks/Week Comments No 0 (1 standard drink = 0.6 oz pur e alcohol) Comments No Sex and Gender Information Value Date Recorded Sex Assigned at Not on file Legal Sex Female 5:57 AM ORGAN RECOVERY COORDINATOR Gender Identity Not on file Sexual Orientation Not on file Last Filed Vital Signs Vital Sign Reading Time Taken Comments Blood Pressure 102/66 03/17/2015 2:15 PM CDT Pulse 92 03/15/2014 2:01 PM CDT Temperature - - Respiratory Rate 18 03/15/2014 2:01 PM CDT Oxygen Saturation - - Inhaled Oxygen Concentration - - Weight 142.9 kg (315 lb) 03/17/2015 2:15 PM CDT Height 167.6 cm (5' 6 ) 03/17/2015 2:15 PM CDT Body Mass Index 50.84 03/17/2015 2:15 PM CDT Plan of Treatment Health Maintenance Due Date Last Done Comments DIABETES ANNUAL FOOT EXAM 09/11/1989 DIABETES ANNUAL RETINAL EXAM 09/11/1989 DIABETES MICROALBUMIN ANNUAL SCREEN 09/11/1989 DTAP/TDAP/TD VACCINES (1 - Tdap) 09/11/1990 HEPATITIS B VACCINES (1 of 3 - 19+ 3-dose series) 09/11/1990 HPV/Cotest (21-29) 09/11/1992 DIABETES HBA1C Q 6 MONTHS 07/08/1999 01/05/1999 CERVICAL CANCER SCREENING 09/11/2001 HPV/Cotest (30-65) 09/11/2001 PAP SMEAR 09/11/2001 LDL CHOLESTEROL ANNUAL 07/16/2003 3, 02/13/2002, 01/29/2000 BREAST CANCER SCREENING 2011 COLORECTAL SCREENING 09/11/2016 Colorectal Cancer Screening 09/11/2016 FIT-DNA Q 3 years 09/11/2016 FIT/FOBT Q 1 year 09/11/2016 Flex Sig/CT Colonography Q 5 years 09/11/2016 ZOSTER VACCINE (1 of 2) 09/11/2021 INFLUENZA VACCINE (#1) 2025 03/24/2002 Insurance [address] [place] [address] [facility] Care Teams Balloon Sander Relationship Specialty Start Date End Date Laney Smith MD [address] [place] [address] PCP - General Internal Medicine 12/29/18
--- OUTSIDE RECORDS SUMMARY | 2025-01-24 11:23 | XMS_ITS ---
Author Organization [facility] Address [address] [place] [address] Phone Care Team Providers Care Shoe Cementer Name Role Phone Laney Smith MD Primary Care Provider +1- [phone] Active Problems Problem Noted Date Diagnosed Date Severe sepsis without septic shock 06/04/2021 Cellulitis of left lower extremity 06/04/2021 Hypothyroidism 06/04/2021 DM (diabetes mellitus), type 2 06/04/2021 Fall from ground level 06/04/2021 Personal history of malignant melanoma of skin 1 06/25/2010 Current Treatment and Therapy Plans No current plan information found. Past Treatment and Therapy Plans No past plan information found. 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
--- OUTSIDE RECORDS SUMMARY | 2025-01-24 11:23 | XMS_ITS | Encounter Summary ---
Author Organization [facility] Address [address] [place] [address] Care Team Providers Care Integrated Circuit Design Engineer Name Role Phone Laney Smith MD Primary Care Provider +1- [phone] Encounter Details Date Type Department Care Team (Latest Contact Info) Description 11/27/1999 Outpatient Historical [facility] Parth Rashid MD [address] [place] [address] Keloid scar (Primary Dx) Social History Tobacco Use Types Packs/Day Years Used Date Smoking Tobacco: Never Assessed Comments Unknown Sex and Gender Information Value Date Recorded Sex Assigned at Not on file Legal Sex Female 5:57 AM HAIR BALER Gender Identity Not on file Sexual Orientation Not on file documented as of this encounter Plan of Treatment Not on file documented as of this encounter Visit Diagnoses Diagnosis Keloid scar- Primary documented in this encounter Care Teams Integrated Circuit Design Engineer Relationship Specialty Start Date End Date Laney Smith MD [address] [place] [address] PCP - General Internal Medicine 12/29/18 documented as of this encounter
--- OUTSIDE RECORDS SUMMARY | 2025-01-24 11:23 | XMS_ITS | Clinical Summary ---
Author Organization [facility] Facility Address [address] [address] Care Team Providers Care Sound Installation Worker Name Role Phone Laney Smith MD Primary Care Provider [phone] Allergies Active Allergy Reactions Criticality Noted Date Comments Amoxicillin-Pot Clavulanate Other (see comments) 07/24/2018 Latex Other (see comments) 07/24/2018 Levofloxacin In D5w Other (see comments) 2018 Morphine Other (see comments) 07/24/2018 Penicillins Other (see comments) 07/24/2018 Rosuvastatin Other (see comments) 07/24/2018 Sulfa Antibiotics Other (see comments) 07/24/19 19 Simvastatin Other (see comments) 07/24/2018 Medications * This document contains information received from the source organization and may not represent a complete record from that organization. aspirin 81 MG tablet 1 tablet 1 (one) time each day Active esomeprazole (NEXIUM 24HR) [address] capsule 1 capsule 2 (two) times a day Active ergocalciferol (VITAMIN D2) 84931 units capsule Take 1 capsule by mouth 1 (one) time per week Active allopurinol (ZYLOPRIM) 300 MG tablet 1 tablet 1 (one) time each day Active calcium carbonate (TUMS ULTRA 1000) 1000 MG chewable tablet 1 (one) time A ctive gabapentin (NEURONTIN) 300 MG capsule 2 capsules 3 (three) times a day Active hydroCHLOROthia zide (HYDRODIURIL) 25 MG tablet Take 0.5 tablets by mouth 1 (one) time each day 8 Active insulin glargine (LANTUS SOLOSTAR) 100 UNIT/ML injection 50 Units 2 (two) times a day Active Lactobacillus Acid-Pectin (ACIDOPHILUS/PE CTIN) capsule 1 capsule 1 (one) time each day Active levothyroxine (SYNTHROID) 100 MCG tablet 1 tablet 1 (one) time each day Active sAXagliptin (ONGLYZA) 5 MG tablet 1 tablet 1 (one) time each day Active spironolactone (ALDACTONE) 50 MG tablet 1 tablet 1 (one) time each day Active venlafaxine XR (EFFEXOR XR) 150 MG 24 hr capsule 1 (one) time each day Active venlafaxine (EFFEXOR) 75 MG tablet Take 75 mg by mouth 1 (one) time each day Active atenolol (TENORMIN) 25 MG tablet Take 25 mg by mouth 1 (one) time each day Active AIMOVIG 70 MG/ML solution auto-injector INJECT CONTENTS OF TWO AUTO INJECTORS AT [facility] SITES MONTHLY FOR MIGRAINE 0 Active fexofenadine (RUSSELL) 180 MG tablet Take 180 mg by mouth 2 (two) times a day Active fluticasone (FLONASE) 50 MCG/ACT nasal spray Administer 1 spray into each nostril 1 (one) time each day Active Active Problems Problem Noted Date Diagnosed Date Hypertension 07/31/2018 Type 2 diabetes mellitus wit h diabetic chronic kidney disease 07/31/2018 Chronic kidney disease, stage 2 (mild) 9 Renal stone 07/30/2018 Family History Medical History Relation Comments Diabetes Father 2 Hypertension Father 2 Kidney disease Mother 2 Relation Status Comments Father 1 Alive Father 2 Mother 1 Alive Mother 2 Social History Tobacco Use Types Packs/Day Years Used Date Smoking Tobacco: Never Smokeless Tobacco: Never Alcohol Use Standard Drinks/Week Comments Never 0 (1 standard drink = 0.6 oz pur e alcohol) AUDIT-C Answer Date Recorded Frequency of Alcohol Consumption Never 07/31/2018 Average Number of Drinks Not on file 019 Frequency of Binge Drinking Not on file 12/2018 Comments Unknown Sex and Gender Information Value Date Recorded Sex Assigned at Not on file Legal Sex Female 12:43 PM EST Gender Identity Not on file Sexual Orientation Not on file Last Filed Vital Signs Vital Sign Reading Time Taken Comments Blood Pressure 116/80 08/04/2019 11:19 AM TOYS INSPECTOR Pulse 76 08/04/2019 11:19 AM TOYS INSPECTOR Temperature - - Respiratory Rate - - Oxygen Saturation - - Inhaled Oxygen Concentration - - Weight 129 kg (283 lb 12.8 oz) 08/04/2019 11:19 AM TOYS INSPECTOR Height 166.4 cm (5' 5.5 ) 08/04/2019 11:19 AM CS T Body Mass Index 46.51 08/04/2019 11:19 AM TOYS INSPECTOR Plan of Treatment Health Maintenance Due Date Last Done Comments Breast Cancer Screening 1970 Hepatitis B Vaccine (1 of 3 - 19+ 3-dose series) 09/11/1990 Pneumococcal Vaccine: 50+ Ye ars (1 of 2 - PCV) 09/11/1990 Diabetes: Ophthalmology Exam 08/23/2019 Diabetes: Pedal Pulse Checked 08/23/2019 Diabetes: Sensory Foot Exam 08/23/2019 Diabetes: Visual Foot Exam 08/23/2019 Diabetes: Hemoglobin A1C 10/29/2019 07/31/2019 Colorectal Cancer Screening: Annual FOBT 09/11/2020 Colorectal Cancer Screening: Colonoscopy 09/11/2020 Colorectal Cancer Screening: Sigmoidoscopy 09/11/2020 Influenza Vaccine (#1) 2025 03/24/2015, 2001 Procedures Procedure Name Priority Date/Time Associated Diagnosis Comments HEMOGLOBIN A1C (EXTERNAL RESULT ENTRY) Routine 07/31/2019 11:39 AM TOYS INSPECTOR from Last 3 Months or Most Recently Relevant to Health Maintenance Results * Hemoglobin A1C (07/31/2019 11:39 AM TOYS INSPECTOR) Hemoglobin A1C 7.9 Blood specimen (specimen) Venous blood / Unknown 07/31/2019 11:39 AM TOYS INSPECTOR [facility] BLOOD ORDERABLES Final Res ult from Last 3 Months or Most Recently Relevant to Health Maintenance Insurance [address] [place] [address] [facility] Medicaid [facility] ([id number]) Care Teams Sound Installation Worker Relationship Specialty Start Date End Date Laney Smith MD [address] [place] [address] PCP - General Internal Medicine 07/31/18
--- OUTSIDE RECORDS SUMMARY | 2025-01-24 11:23 | XMS_ITS | Encounter Summary ---
Author Organization [facility] Address [address] [place] [address] Care Team Providers Care Stratigrapher Name Role Phone Laney Smith MD Primary Care Provider [phone] Encounter Details Date Type Department Care Team (Latest Contact Info) Description 02/20/2007 Outpatient Historical [facility] Nose [facility] Th[facility] [address] [place] 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
--- OUTSIDE RECORDS SUMMARY | 2025-01-24 11:23 | XMS_ITS | Encounter Summary ---
Author Organization [facility] Address [address] [place] [address] Care Team Providers Care Equalizer Operator Name Role Phone Laney Smith MD Primary Care Provider [phone] Encounter Details Date Type Department Care Team (Latest Contact Info) Description 10/06/2007 Outpatient Historical [facility] [place] [address] [place] [id number] Jad West MD NO ADDRESS ON FILE Other and Unspecified Chronic Nonsuppurative Otitis Media Social History Tobacco Use Types Packs/Day Years Used Date Smoking Tobacco: Never Assessed Comments Unknown Sex and Gender Information Value Date Recorded Sex Assigned at Not on file Legal 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 Female 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 Thin section axial and coronal images through the temporal bones have been obtained without contrast. The external auditory canals are normal in course and caliber. The middle ear cavities and ossicles are unremarkable. Normal caliber of the 7th nerve canals. The inner ear structures are normally developed. Normal course and caliber of the internal auditory canals and no abnormal attenuation or mass effect at the cerebellopontine angle cisterns. The vestibular aqueducts are not enlarged. The mastoid air cells are clear. Impression: 1. Unremarkable exam. CT head without contrast: The ventricles are normal and the hernandez/white junction is well delineated. No abnormal attenuation or mass effect. The right temporal horn is slightly larger than the left most consistent with normal anatomic variation. The visualized paranasal sinuses are clear. No calvarial lesions. Impression: 1. Unremarkable. - Dictated By: Ayad Sánchez M.D. Electronically Signed By: Ayad Sánchez M.D. Date Signed: 10/09/07 Procedure Note PrincessEleonoraiggy Ward - 10/09/2007 CT temporal bone: History: Left ear infection. Thin section axial and coronal images through the temporal bones have beenobtained without contrast. The external auditory canals are normal in course and caliber. The middleear cavities and ossicles are unremarkable. Normal caliber of the 7th nerve canals. The inner earstructures are normally developed. Normal course and caliber of the internal auditory canals and no abnormalattenuation or mass effect at the cerebellopontine angle cisterns. The vestibular aqueducts are notenlarged. The mastoid air cells are clear. Impression: 1. Unremarkable exam. CT head without contrast: The ventricles are normal and the hernandez/white junction is well delineated.No abnormal attenuation or mass effect. The right temporal horn is slightly larger than the left mostconsistent with normal anatomic variation. The visualized paranasal sinuses are clear. No calvariallesions. Impression: 1. Unremarkable. - Dictated By: Ayad Sánchez M.D. Electronically Signed By: Ayad Sánchez M.D. Date Signed: 10/09/[address] ORDERABLES Final Result * CT TEMPORAL BONE WO CONTRAST (10/07/2007 1:23 PM CDT) Anatomical Region Laterality Modality Head Other 10/07/2007 1:23 PM CDT Narrative 08/18/2008 2:[address] temporal bone: History: Left ear infection. Thin section axial and coronal images through the temporal bones have been obtained without contrast. The external auditory canals are normal in course and caliber. The middle ear cavities and ossicles are unremarkable. Normal caliber of the 7th nerve canals. The inner ear structures are normally developed. Normal course and caliber of the internal auditory canals and no abnormal attenuation or mass effect at the cerebellopontine angle cisterns. The vestibular aqueducts are not enlarged. The mastoid air cells are clear. Impression: 1. Unremarkable exam. CT head without contrast: The ventricles are normal and the hernandez/white junction is well delineated. No abnormal attenuation or mass effect. The right temporal horn is slightly larger than the left most consistent with normal anatomic variation. The visualized paranasal sinuses are clear. No calvarial lesions. Impression: 1. Unremarkable. - Dictated By: Ayad Sánchez M.D. Electronically Signed By: Ayad Sánchez M.D. Date Signed: 10/09/07 Procedure Note Provider, Historical - 08/26/2008 CT temporal bone: History: Left ear infection. Thin section axial and coronal images through the temporal bones have beenobtained without contrast. The external auditory canals are normal in course and caliber. The middleear cavities and ossicles are unremarkable. Normal caliber of the 7th nerve canals. The inner earstructures are normally developed. Normal course and caliber of the internal auditory canals and no abnormalattenuation or mass effect at the cerebellopontine angle cisterns. The vestibular aqueducts are notenlarged. The mastoid air cells are clear. Impression: 1. Unremarkable exam. CT head without contrast: The ventricles are normal and the hernandez/white junction is well delineated.No abnormal attenuation or mass effect. The right temporal horn is slightly larger than the left mostconsistent with normal anatomic variation. The visualized paranasal sinuses are clear. No calvariallesions. Impression: 1. Unremarkable. - Dictated By: Ayad Sánchez M.D. Electronically Signed By: Ayad Sánchez M.D. Date Signed: 10/09/07 us Jad West MD CT ORDERABLES Final Result documented in this encounter Visit Diagnoses Diagnosis Other and unspecified chronic nonsuppurative otitis media documented in this encounter Care Teams Equalizer Operator Relationship Specialty Start Date End Date Laney Smith MD [address] [place] [address] PCP - General Internal Medicine 12/29/18 documented as of this encounter
--- OUTSIDE RECORDS SUMMARY | 2025-01-24 11:23 | XMS_ITS | Patient Health Record ---
Author Organization [facility] Address [address] [place] [address] Care Team Providers Care Neurophysiologist Name Role Phone Laney Smith MD Primary Care Provider Unavailab Salvador Cho Unavailable [phone] Bk Lehman Unavailable Unavailable Allergies Allergen (clinical drug ingredient) Drug/Non Drug Allergy documented on EMR Reaction Allergy Type Onset Date Status rosuvastatin Rosuvastatin Unknown Drug Allergy A ctive simvastatin Simvastatin Unknown Drug Allergy Act kamila sulfacetamide Sulfacetamide Unknown Drug Allergy Active Reason For Referral Reason eval and treat Diagnosis 1 Spondylosis without myelopathy or radiculopathy, lumbar region (M47.816) Diagnosis 2 Intervertebral disc disorders with radiculopathy, lumbar region (M51.16) Diagnosis 3 Vertebrogenic low ba ck pain (M54.51) Diagnosis 4 Sacroiliitis, not el sewhere classified (M46.1) Referring Provider First Name Chris Referring Provider Last Name Catie Referring Provider Speciality Pain Medic ine Referred Organization [facility] Home Referred Provider Annie Anderson Referred Address [address] [place] [address],[place],[phone], Referred Provider Specialty Pain Medicin e General Notes Shanti Cuevas 0 11/04/2024 02:14:06 PM >Scheduled and ppw in mail. Referral Priority Routine Medications Medication SIG (Take, Route, Frequency, Duration) Notes Start Date End Date Status Docusate Sodium 100 MG Capsule 1 capsule as needed Orally Once a day Active Albuterol Active Metoprolol Tartrate 25 MG Tablet 1 tablet with food Orally Twice a day Active Spironolactone 100 MG Tablet 1 tablet Or ally Once a day Active Levothyroxine Sodium 100 MCG Tablet 1 tablet in the morning on an empty stomach Orally Once a day Active Dulaglutide 0.75 MG/0.5ML Solution Pen-injector as directed Subcutaneous Active Gabapentin 300 MG Capsule 1 capsule Oral ly Once a day Active Magnesium Oxide 400 MG Tablet 1 tablet a s needed Orally Once a day Active Dexcom G6 Sensor Act kamila Cetirizine HCl 10 MG Tablet 1 tablet Ora lly Once a day Active Tamsulosin HCl 0.4 MG Capsule 1 capsule Orally Once a day Active Acyclovir 400 MG Tablet 1 tablet Orally Twice a day Active Allopurinol 300 MG Tablet 1 tablet Orall y Once a day Active hydroCHLOROthiazide 25 MG Tablet 1 tablet in the morning Orally Once a day Active Insulin Aspart FlexPen 100 UNIT/ML Solution Pen-injector as directed Subcutaneous Active Insulin Lispro 100 UNIT/ML Solution Cartridge as directed Subcutaneous Active Denosumab 60 MG/ML Solution Prefilled Syringe as directed Subcutaneous Active Ibuprofen 200 MG Tablet 1 tablet with fo od or milk as needed Orally Three times a day Active Aspirin 81 81 MG Tablet Delayed Release 1 tablet Orally Once a day Active Fluconazole 150 MG Tablet 1 tablet Orally Active Lactobacillus Probiotic Active Levocetirizine-Loratadine Active Cyclobenzaprine HCl 10 MG Tablet 1 tablet at bedtime as needed Orally Once a day Active Venlafaxine HCl ER 150 MG Tablet Extended Release 24 Hour 1 tablet with food Orally Once a day Active Omeprazole 20 MG Capsule Delayed Release 1 capsule 30 minutes before morning meal Orally Once a day Active Triamcinolone Acet & Lidocaine Active Mupirocin 2 % Ointment 1 application Externally Twice a day Active Social History Tobacco Use: Social History Observation Description Date Details (start date - stop date) Never Smoker NA - NA Social History Tobacco Use: Social Info Question Answer Notes xTobacco Use/Smoking Are you a nonsmoker Problems Problem Type SNOMED Code ICD Code Onset Dates Problem Status W/U Status Risk Notes Problem Chronic pain syndrome (392035628) Chronic pain syndrome (G89.4) Active confirmed Problem Solitary sacroiliitis (291050549) Sacroiliitis, not elsewhere classified (M46.1) Active confirmed Problem Lumbosacral spondylosis without myelopathy (19901787) Spondylosis without myelopathy or radiculopathy, lumbar region (M47.816) Active confirmed Problem Radiculopathy due to lumbar intervertebral disc disorder (793959527677711) Intervertebral disc disorders with radiculopathy, lumbar region (M51.16) Active confirmed Problem Hematuria syndrome (05332892) Hematuria, unspecified type (R31.9) Active confirmed Problem Chronic cystitis (77743374) Chronic cystitis (N30.20) Active confirmed Problem Lumbar radiculopathy (503072281) Lumbar radiculopathy (M54.16) Active confirmed Problem Lumbar spondylosis (709807302) Lumbar spondylosis (M47.816) Active confirmed Problem Obesity (639992471) Obesity (E66.9) Active confirmed Problem Solitary sacroiliitis (820422248) Sacroiliac inflammation (M46.1) Active confirmed Problem Cystitis (29762098) Cystitis (N30.90) Active confirmed Problem Abnormal gait (44842859) Abnormality of gait and mobility (R26.9) Active confirmed Vital Signs Height-cm 165.1 cm 01/06/2025 Weight-kg 146.97 kg 01/06/2025 Height 65 in 01/06/2025 Weight 324 lbs 01/06/2025 BMI 53.91 kg/m2 01/06/2025 Encounters Encounter Location Date Provider Diagnosis [facility] [address] [place] [id number] 01/06/2025 Salvador Ramsey Chronic pain syndrom e G89.4 ; Abnormality of gait and mobility R26.9 ; Sacroiliac inflammation M46.1 ; Other spondylosis with radiculopathy, lumbar region M47.26 ; Obesity E66.9 ; Drug therapy continued Z79.899 ; Lumbar spondylosis M47.816 and Lumbar radiculopathy M54.16 Assessments Encounter Date Diagnosis (ICD Code) Assessment Notes Treatment Notes Treatment Clinical Notes Section Notes 01/06/2025 Chronic pain syndrome (ICD-10 - G89.4) I had a nice visit with the patient today regarding her chronic pain issues. Based on her history and PE, as well as old imaging studies, which I reviewed, the worst of her symptoms appear consistent with lumbar spondylosis and sacroilitis in the setting of morbid obesity. We discussed treatment options, and I would like to see updated imaging, since it's been a few years. So we will get a lumbar MRI ordered and review that at her next visit. She's going to put some more effort towards weight loss and see if we can make some progress on that front as well. We will see her back in about 5-6 weeks to review that imaging and proceed accordingly. 01/06/2025 Abnormality of gait and mobility (ICD-10 - R26.9) 01/06/2025 Sacroiliac inflammation (ICD-10 - M46.1) 01/06/2025 Other spondylosis with radiculopathy, lumbar region (ICD-10 - M47.26) 01/06/2025 Obesity (ICD-10 - E66.9) 01/06/2025 Drug therapy continued (ICD-10 - Z79.899) 01/06/2025 Lumbar spondylosis (ICD-10 - M47.816) 01/06/2025 Lumbar radiculopathy (ICD-10 - M54.16) 01/06/2025 Other I, JUNG Loza, am scribing for Dr. Salvador Ramsey. I, Dr. Salvador Ramsey, personally performed the services described in this documentation, as scribed by JUNG Loza, and it is both accurate and complete. Plan Of Treatment Pending Test Test Name Order Date Hip 2 View Bilat w/[id number] 01/07/20 MRI Lumbar Spine w/o Cont-[id number] 01/07/20 Next Appt Details Provider Name:Salvador Ramsey, 02/03/2025 08:20:00 AM, [address] [place], [address], Insurance Providers Payer Name Payer Address Payer Phone Subscriber Number Group Number Insured Name Patient Relationship to Insured Coverage Start Date Coverage End Date [place] Medicaid [address] [place] [address] [phone] [id number] Santiago Sandoval Self - patient is the insured Medical (General) History Medical History History ICD Code chicken pox pneumonia heart disease arthritis anemia bladder infections migraine headache diabetes cancer hernia back trouble low blood pressure hemorrhoids hives or eczema Stroke Surgical History Surgery Date(Month/Year) 1996 Gallbladder 1996 DNC, ENC, Total Hysterectomy 2001 Nerves Deadend 2022 Hospitalization History Reason Date(Month/Year) Kidney Stones 2021 Cellulitis 2020
--- OUTSIDE RECORDS SUMMARY | 2025-01-24 11:23 | XMS_ITS | Encounter Summary ---
Author Organization [facility] Address [address] [place] [address] Care Team Providers Care Fabric Coating Supervisor Name Role Phone Laney Smith MD Primary Care Provider +1- [phone] Encounter Details Date Type Department Care Team (Latest Contact Info) Description 06/09/1999 Outpatient Historical [facility] Catr[place]ito Martini NO ADDRESS ON FILE Urinary tract infection, site not specified (Primary Dx) Social History Tobacco Use Types Packs/Day Years Used Date Smoking Tobacco: Never Assessed Comments Unknown Sex and Gender Information Value Date Recorded Sex Assigned at Not on file 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
--- OUTSIDE RECORDS SUMMARY | 2025-01-24 11:23 | XMS_ITS | Encounter Summary ---
Author Organization [facility] Address [address] [place] [address] Care Team Providers Care Potato Picker Name Role Phone Laney Smith MD Primary Care Provider +1- [phone] Reason for Referral * MRI (Routine) - Closed Specialty Diagnoses / Procedures Referred By Contac t Referred To Contact Radiology Diagnoses Lumbar radiculopathy Procedures MRI LUMBAR WO CONTRAST Laney Smith MD [address] [place] [address] Phone: tel: fax: [facility] [address] [address] Phone: tel: fax: Referral ID Status Reason Start Date Expiration Date V isits Requested Visits Authorized [id number] Closed F MC TO SCHEDULE (SGF) 12/23/2018 01/22/2019 1 1 Encounter Details Date Type Department Care Team (Late st Contact Info) Description 12/26/2018 Ancillary Orders [facility] Pre-Registration [place] CALL TO MAKE APPOINTMENT ONLY [address] [place] [address] Laney Smith MD [address] [place] [address] Lumbar radiculopathy Social History Tobacco Use Types Packs/Day Years Used Date Smoking Tobacco: Never Smokeless Tobacco: Never Alcohol Use Standard Drinks/Week Comments No 0 (1 standard drink = 0.6 oz pur e alcohol) Comments No Sex and Gender Information Value Date Recorded Sex Assigned at Not on file Legal Sex Female 5:57 AM FLANGER Gender Identity Not on file Sexual Orientation Not on file documented as of this encounter Plan of Treatment Not on file documented as of this encounter Results * MRI LUMBAR WO CONTRAST (01/06/2019 11:30 AM CDT) Anatomical Region Laterality Modality Spine Magnetic Resonan ce 01/06/2019 11:3 0 AM CDT Impressions 01/06/2019 1:51 PM CDT IMPRESSION: Mild facet arthropathy at L5-S1. The lumbar spine is otherwise unremarkable. No narrowing of the spinal canal or foramina. [id number] Narrative 01/06/2019 1:51 PM CDT Exam: MRI LUMBAR WO CONTRAST Date/Time of Exam: 01/06/2019 11:30 AM Reason For Exam: See Diagnosis. Diagnosis: Lumbar radiculopathy. Technique: MRI of the lumbar spine was performed without the administration of intravenous contrast. Findings: The sagittal alignment is unremarkable. There is no evidence of compression fracture or bone marrow edema. The conus terminates at the T12-L1 level and is unremarkable. L1-2: Unremarkable. L2-3: Unremarkable. L3-4: Unremarkable. L4-5: Unremarkable. L5-S1: Mild facet arthropathy, otherwise unremarkable. The visualized paraspinous soft tissues are unremarkable. Procedure Note James Gaffney MD - 01/06/2019 Exam: MRI LUMBAR WO CONTRAST Date/Time of Exam: 01/06/2019 11:30 AM Reason For Exam: See Diagnosis. Diagnosis: Lumbar radiculopathy. Technique: MRI of the lumbar spine was performed without the administration of intravenous contrast. Findings: The sagittal alignment is unremarkable. There is no evidence of compression fracture or bone marrow edema. The conus terminates at the T12-L1 level and is unremarkable. L1-2: Unremarkable. L2-3: Unremarkable. L3-4: Unremarkable. L4-5: Unremarkable. L5-S1: Mild facet arthropathy, otherwise unremarkable. The visualized paraspinous soft tissues are unremarkable. IMPRESSION: Mild facet arthropathy at L5-S1. The lumbar spine is otherwise unremarkable. No narrowing of the spinal canal or foramina. [id number] us Laney Smith MD MR ORDERABLES Final Resu lt documented in this encounter Visit Diagnoses Diagnosis Lumbar radiculopathy Thoracic or lumbosacral neuritis or radiculitis, unspecified Lumbar radiculopathy Thoracic or lumbosacral neuritis or radiculitis, unspecified documented in this encounter Care Teams Potato Picker Relationship Specialty Start Date End Date Laney Smith MD [address] [place] [address] PCP - General Internal Medicine 12/29/18 documented as of this encounter
--- OUTSIDE RECORDS SUMMARY | 2025-01-24 11:23 | XMS_ITS | Encounter Summary ---
Author Organization [facility] Address [address] [place] [address] Care Team Providers Care Game Room Attendant Name Role Phone Laney Smith MD Primary Care Provider +1- [phone] Encounter Details Date Type Department Care Team (Latest Contact Info) Description 07/28/1998 Outpatient Historical [facility] Parth Rashid MD [address] [place] [address] Encounter for long-term (current) use of other medications (Primary Dx) Social History Tobacco Use Types Packs/Day Years Used Date Smoking Tobacco: Never Assessed Comments Unknown Sex and Gender Information Value Date Recorded Sex Assigned at Not on file Legal Sex Female 5:57 AM CONTENT WRITER Gender Identity Not on file Sexual Orientation Not on file documented as of this encounter Plan of Treatment Not on file documented as of this encounter Visit Diagnoses Diagnosis Encounter for long-term (current) use of other medications- Primary documented in this encounter Care Teams Game Room Attendant Relationship Specialty Start Date End Date Laney Smith MD [address] [place], [place] [address] PCP - General Internal Medicine 12/29/18 documented as of this encounter
--- OUTSIDE RECORDS SUMMARY | 2025-01-24 11:23 | XMS_ITS | Encounter Summary ---
Author Organization [facility] Address [address] [place] [address] Care Team Providers Care Cath Lab Manager Name Role Phone Laney Smith MD Primary Care Provider +1- [phone] Encounter Details Date Type Department Care Team (Latest Contact Info) Description 08/25/1999 Outpatient Historical [facility] Parth Rashid MD [address] [place] [address] Unspecified sinusitis (chronic) (Primary Dx) Social History Tobacco Use Types Packs/Day Years Used Date Smoking Tobacco: Never Assessed Comments Unknown Sex and Gender Information Value Date Recorded Sex Assigned at Not on file Legal Sex Female 5: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
--- OUTSIDE RECORDS SUMMARY | 2025-01-24 11:24 | XMS_ITS | Encounter Summary ---
Author Organization [facility] Address [address] [place] [address] Care Team Providers Care Mgmt Consultant Name Role Phone Laney Smith MD Primary Care Provider +1- [phone] Encounter Details Date Type Department Care Team (Latest Contact Info) Description 01/08/2007 Outpatient Historical [facility] Ear, Nose and Throat [address] [place] 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
--- OUTSIDE RECORDS SUMMARY | 2025-01-24 11:24 | XMS_ITS | Encounter Summary ---
Author Organization [facility] Address [address] [place] [address] Care Team Providers Care Brick Offbearer Name Role Phone Laney Smith MD Primary Care Provider +1- [phone] Encounter Details Date Type Department Care Team (Latest Contact Info) Description 12/14/1999 Outpatient Historical [facility] Parth Rashid MD [address] [place] [address] Esophageal reflux (Primary Dx) Social History Tobacco Use Types Packs/Day Years Used Date Smoking Tobacco: Never Assessed Comments Unknown Sex and Gender Information Value Date Recorded Sex Assigned at Not on file Legal Sex Female 5:57 AM CREATIVE DEVELOPER Gender Identity Not on file Sexual Orientation Not on file documented as of this encounter Plan of Treatment Not on file documented as of this encounter Visit Diagnoses Diagnosis Esophageal reflux- Primary documented in this encounter Care Teams Brick Offbearer Relationship Specialty Start Date End Date Laney Smith MD [address] [place] [address] PCP - General Internal Medicine 12/29/18 documented as of this encounter
--- OUTSIDE RECORDS SUMMARY | 2025-01-24 11:24 | XMS_ITS | Encounter Summary ---
Author Organization [facility] Address [address] [place] [address] Care Team Providers Care Wine Blender Name Role Phone Laney Smith MD Primary Care Provider +1- [phone] Encounter Details Date Type Department Care Team (Latest Contact Info) Description 03/10/2002 Outpatient Historical [facility] Parth Rashid MD [address] [place] [address] ANEMIA NOS (Primary Dx); MENSTRUAL DISORDER NEC Social History Tobacco Use Types Packs/Day Years Used Date Smoking Tobacco: Never Assessed Comments Unknown Sex and Gender Information Value Date Recorded Sex Assigned at Not on file Legal Sex Female 5:57 AM VEGETABLE TRIMMER Gender Identity Not on file Sexual Orientation Not on file documented as of this encounter Plan of Treatment Not on file documented as of this encounter Visit Diagnoses Diagnosis Anemia, unspecified- Primary Other disorder of menstruation and other abnormal bleeding from female genital tract documented in this encounter Care Teams Wine Blender Relationship Specialty Start Date End Date Laney Smith MD [address] [place], [place] [address] PCP - General Internal Medicine 12/29/18 documented as of this encounter
--- OUTSIDE RECORDS SUMMARY | 2025-01-24 11:24 | XMS_ITS | Encounter Summary ---
Author Organization [facility] Address [address] [place] [address] Phone Care Team Providers Care Social Security Specialist Name Role Phone Laney Smith MD Primary Care Provider [phone] Encounter Details Date Type Department Care Team (Late st Contact Info) Description 07/31/2019 Orders Only [facility] [address] [place] [address] Kelly Lugo NP Chronic kidney disease stage 3 (HCC); Renal stone Social History Tobacco Use Types Packs/Day Years [...] of this encounter Visit Diagnoses Diagnosis Chronic kidney disease stage 3 (HCC) Renal stone documented in this encounter Care Teams Social Security Specialist Relationship Specialty Start Date End Date Laney Smith MD [address] [place] [address] PCP - General Internal Medicine 07/31/18 documented as of this encounter
--- OUTSIDE RECORDS SUMMARY | 2025-01-24 11:24 | XMS_ITS | Encounter Summary ---
Author Organization [facility] Address [address] [place] [address] Care Team Providers Care Senior Talent Management Consultant Name Role Phone Laney Smith MD Primary Care Provider +1- [phone] Encounter Details Date Type Department Care Team (Latest Contact Info) Description 11/12/2006 Outpatient Historical [facility] Ear, Nose and Throat [address] [place] [address] [place] [phone] Gina Villareal, MAINTENANCE SERVICE DISPATCHER [address] [place] [address] Unspecified Sensorineural Hearing Loss (Primary Dx); Unspecified Tinnitus Social History Tobacco Use Types Packs/Day Years Used Date Smoking Tobacco: Never Assessed Comments Unknown Sex and Gender Information Value Date Recorded Sex Assigned at Not on file Legal Sex Female 5:57 AM PHYSICIAN OFFICE NURSE Gender Identity Not on file Sexual Orientation Not on file documented as of this encounter Plan of Treatment Not on file documented as of this encounter Visit Diagnoses Diagnosis Sensorineural hearing loss, unspecified- Primary Unspecified tinnitus documented in this encounter Care Teams Senior Talent Management Consultant Relationship Specialty Start Date End Date Laney Smith MD [address] [place] [address] PCP - General Internal Medicine 12/29/18 documented as of this encounter
--- OUTSIDE RECORDS SUMMARY | 2025-01-24 11:24 | XMS_ITS | Encounter Summary ---
Author Organization [facility] Address [address] [place] [address] Care Team Providers Care Distribution Field Engineer Name Role Phone Laney Smith MD Primary Care Provider +1- [phone] Encounter Details Date Type Department Care Team (Latest Contact Info) Description 07/25/2006 Outpatient Historical [facility] Ear, Nose and Throat [address] [place] 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
--- OUTSIDE RECORDS SUMMARY | 2025-01-24 11:24 | XMS_ITS | Encounter Summary ---
Author Organization [facility] Address [address] [place] [address] Care Team Providers Care Head Start Director Name Role Phone Laney Smith MD Primary Care Provider +1- [phone] Encounter Details Date Type Department Care Team (Latest Contact Info) Description 11/11/2000 Outpatient Historical [facility] Parth Rashid MD [address] [place] [address] Lumbago (Primary Dx); Unspecified hypothyroidism; Dysuria Social History Tobacco Use Types Packs/Day Years Used Date Smoking Tobacco: Never Assessed Comments Unknown Sex and Gender Information Value Date Recorded Sex Assigned at Not on file Legal Sex Female 5:57 AM SYSTEM ARCHITECT Gender Identity Not on file Sexual Orientation Not on file documented as of this encounter Plan of Treatment Not on file documented as of this encounter Visit Diagnoses Diagnosis Lumbago- Primary Unspecified hypothyroidism Dysuria documented in this encounter Care Teams Head Start Director Relationship Specialty Start Date End Date Laney Smith MD [address] [place], [place] [address] PCP - General Internal Medicine 12/29/18 documented as of this encounter
--- OUTSIDE RECORDS SUMMARY | 2025-01-24 11:24 | XMS_ITS | Encounter Summary ---
Author Organization [facility] Address [address] [place] [address] Care Team Providers Care Control Panel Operator Name Role Phone Laney Smith MD Primary Care Provider +1- [phone] Encounter Details Date Type Department Care Team (Latest Contact Info) Description 07/23/2006 Outpatient [facility] [address] Ear, Nose and Throat [address] [place] 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
--- OUTSIDE RECORDS SUMMARY | 2025-01-24 11:24 | XMS_ITS | Encounter Summary ---
Author Organization [facility] Address [address] [place] [address] Care Team Providers Care Surveyor Helper Rod Name Role Phone Laney Smith MD Primary Care Provider +1- [phone] Encounter Details Date Type Department Care Team (Latest Contact Info) Description 07/16/2002 Outpatient Historical [facility] Parth Rashid MD [address] [place] [address] HYPERLIPIDEMIA NEC/NOS (Primary Dx) Social History Tobacco Use Types Packs/Day Years Used Date Smoking Tobacco: Never Assessed Comments Unknown Sex and Gender Information Value Date Recorded Sex Assigned at Not on file Legal Sex Female 5:57 AM MASTER DYER Gender Identity Not on file Sexual Orientation Not on file documented as of this encounter Plan of Treatment Not on file documented as of this encounter Visit Diagnoses Diagnosis Other and unspecified hyperlipidemia- Primary documented in this encounter Care Teams Surveyor Helper Rod Relationship Specialty Start Date End Date Laney Smith MD [address] [place] [address] PCP - General Internal Medicine 12/29/18 documented as of this encounter
--- OUTSIDE RECORDS SUMMARY | 2025-01-24 11:24 | XMS_ITS | Encounter Summary ---
Author Organization [facility] Address [address] [place] [address] Care Team Providers Care Management Consulting Name Role Phone Laney Smith MD Primary Care Provider +1- [phone] Encounter Details Date Type Department Care Team (Latest Contact Info) Description 02/13/2002 Outpatient Historical [facility] Parth Rashid MD [address] [place] [address] HYPOTHYROIDISM NOS (Primary Dx); FEM PELV INFLAM DIS NOS; SCREENING-THYROID DISORDER; LABORATORY EXAMINATION Social History Tobacco Use Types Packs/Day Years Used Date Smoking Tobacco: Never Assessed Comments Unknown Sex and Gender Information Value Date Recorded Sex Assigned at Not on file Legal Sex Female 5:57 AM RN ORTHOPEDIC Gender Identity Not on file Sexual Orientation Not on file documented as of this encounter Plan of Treatment Not on file documented as of this encounter Visit Diagnoses Diagnosis Unspecified hypothyroidism- Primary Unspecified inflammatory disease of female pelvic organs and tissues Screening for thyroid disorder Laboratory examination documented in this encounter Care Teams Management Consulting Relationship Specialty Start Date End Date Laney Smith MD [address] [place], [place] [address] PCP - General Internal Medicine 12/29/18 documented as of this encounter
--- OUTSIDE RECORDS SUMMARY | 2025-01-24 11:24 | XMS_ITS | Encounter Summary ---
Author Organization [facility] Address [address] [place] [address] Care Team Providers Care Musical Therapist Name Role Phone Laney Smith MD Primary Care Provider +1- [phone] Encounter Details Date Type Department Care Team (Latest Contact Info) Description 01/28/2007 Outpatient Historical [facility] Ear, Nose and Throat [address] [place] 

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
--- OUTSIDE RECORDS SUMMARY | 2025-01-24 11:24 | XMS_ITS | Encounter Summary ---
Author Organization [facility] Address [address] [place] [address] Care Team Providers Care Dive Master Name Role Phone Laney Smith MD Primary Care Provider +1- [phone] Encounter Details Date Type Department Care Team (Late st Contact Info) Description 11/12/2006 Outpatient Historical [facility] Ear, Nose and Throat [address] [place] [address] [place] [phone] Social History Tobacco Use Types Packs/Day Years Used Date Smoking Tobacco: Never Assessed Comments Unknown Sex and Gender Information Value Date Recorded Sex Assigned at Not on file Legal Sex Female 5:57 AM TREE TOPPER Gender Identity Not on file Sexual Orientation Not on file documented as of this encounter Plan of Treatment Not on file documented as of this encounter Visit Diagnoses Not on filedocumented in this encounter Care Teams Dive Master Relationship Specialty Start Date End Date Laney Smith MD [address] [place] [address] PCP - General Internal Medicine 12/29/18 documented as of this encounter
--- OUTSIDE RECORDS SUMMARY | 2025-01-24 11:24 | XMS_ITS | Encounter Summary ---
Author Organization [facility] Address [address] [place] [address] Care Team Providers Care Patcher Wood Welder Name Role Phone Laney Smith MD Primary Care Provider +1- [phone] Encounter Details Date Type Department Care Team (Latest Contact Info) Description 01/09/2000 Outpatient Historical [facility] Parth Rashid MD [address] [place] [id number] Nonallopathic lesion of cervical region, not elsewhere classified (Primary Dx); Nonallopathic lesion of thoracic region, not elsewhere classified; Nonallopathic lesion of lumbar region, not elsewhere classified Social History Tobacco Use Types Packs/Day Years Used Date Smoking Tobacco: Never Assessed Comments Unknown Sex and Gender Information Value Date Recorded Sex Assigned at Not on file Legal Sex Female 5:57 AM GRASSLAND CONSERVATIONIST Gender Identity Not on file Sexual Orientation Not on file documented as of this encounter Plan of Treatment Not on file documented as of this encounter Visit Diagnoses Diagnosis Nonallopathic lesion of cervical region, not elsewhere classified- Primary Nonallopathic lesion of thoracic region, not elsewhere classified Nonallopathic lesion of lumbar region, not elsewhere classified documented in this encounter Care Teams Patcher Wood Welder Relationship Specialty Start Date End Date Laney Smith MD [address] [place] [address] PCP - General Internal Medicine 12/29/18 documented as of this encounter
--- OUTSIDE RECORDS SUMMARY | 2025-01-24 11:24 | XMS_ITS | Encounter Summary ---
Author Organization [facility] Address [address] [place] [address] Care Team Providers Care Oil Prospecting Observer Name Role Phone Laney Smith MD Primary Care Provider +1- [phone] Encounter Details Date Type Department Care Team (Late st Contact Info) Description 07/08/2002 Outpatient Historical [facility] Family Medicine- [facility] [address] [place] [address] Parth Rashid MD [address] [place] [address] Social History Tobacco Use Types Packs/Day Years Used Date Smoking Tobacco: Never Assessed Comments Unknown Sex and Gender Information Value Date Recorded Sex Assigned at Not on file Legal Sex 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
--- OUTSIDE RECORDS SUMMARY | 2025-01-24 11:24 | XMS_ITS | Encounter Summary ---
Author Organization [facility] Address [address] [place] [address] Care Team Providers Care Fiber Machine Tender Name Role Phone Laney Smith MD Primary Care Provider +1- [phone] Encounter Details Date Type Department Care Team (Latest Contact Info) Description 05/14/2002 Outpatient Historical [facility] Parth Rashid MD [address] [place] [address] ACUTE SINUSITIS NOS (Primary Dx) Social History Tobacco Use Types Packs/Day Years Used Date Smoking Tobacco: Never Assessed Comments Unknown Sex and Gender Information Value Date Recorded Sex Assigned at Not on file Legal Sex Female 5: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
--- OUTSIDE RECORDS SUMMARY | 2025-01-24 11:24 | XMS_ITS | Patient Health Record ---
Author Organization [employer] [facility] Address [address] [place] [address] Care Team Providers Care Science Tutor Name Role Phone Sarah Laney Primary Care Provider CATHERINE Concepcion Unavailable [phone] Bk Lehman Unavailable Unavailable Allergies Allergen (clinical drug ingredient) Drug/Non Drug Allergy documented on EMR Reaction Allergy Type Onset Date Status simvastatin Simvastatin Unknown Drug Allergy Act kamila rosuvastatin Rosuvastatin Unknown Drug Allergy A ctive sulfacetamide Sulfacetamide Unknown Drug Allergy Active Reason For Referral No Information Medications Medication SIG (Take, Route, Frequency, Duration) Notes Start Date End Date Status Cyclobenzaprine HCl 10 MG 1 tablet at bedtime as needed Orally Once a day Active Albuterol *Reorder from [employer] for eRx and Interaction Alerts* Active Acyclovir 400 MG 1 tablet Orally Twice a day Active Gabapentin 300 MG 1 capsule Orally Once a day Active hydroCHLOROthiazide 25 MG 1 tablet in th e morning Orally Once a day Active Spironolactone 100 MG 1 tablet Orally Once a day Active Tamsulosin HCl 0.4 MG 1 capsule Orally Once a day Active Dulaglutide 0.75 MG/0.5ML as directed Subcutaneous *Reorder from [employer] for eRx and Interaction Alerts* Active Docusate Sodium 100 MG 1 capsule as needed Orally Once a day Active Fluconazole 150 MG 1 tablet Orally Active Levocetirizine-Loratadine *Reord er from [employer] for eRx and Interaction Alerts* Active Insulin Lispro 100 UNIT/ML as directed Subcutaneous *Pick strength-form from [employer] for eRX* Active Dexcom G6 Sensor Act kamila Lactobacillus Probiotic *Pick strength-form from [employer] for eRX* Active Omeprazole 20 MG 1 capsule 30 minutes before morning meal Orally Once a day Active Metoprolol Tartrate 25 MG 1 tablet with food Orally Twice a day Active Triamcinolone Acet & Lidocaine *Reorder from [employer] for eRx and Interaction Alerts* Active Magnesium Oxide 400 MG 1 tablet as neede d Orally Once a day Active Cetirizine HCl 10 MG 1 tablet Orally Once a day Active Aspirin 81 81 MG 1 tablet Orally Once a day *Pick strength-form from [employer] for eRX* Active Insulin Aspart FlexPen 100 UNIT/ML as directed Subcutaneous Active Levothyroxine Sodium 100 MCG 1 tablet in the morning on an empty stomach Orally Once a day Active Venlafaxine HCl ER 150 MG 1 tablet with food Orally Once a day Active Ibuprofen 200 MG 1 tablet with food or milk as needed Orally Three times a day Active Allopurinol 300 MG 1 tablet Orally Once a day Active Mupirocin 2 % 1 application Externally Twice a day Active Denosumab 60 MG/ML as directed Subcutaneous *Reorder from [employer] for eRx and Interaction Alerts* Active Problems Problem Type SNOMED Code ICD Code Onset Dates Problem Status W/U Status Risk Notes Problem Chronic cystitis (56190231) Chronic cystitis (N30.20) Active confirmed Problem Hematuria syndrome (00559823) Hematuria, unspecified type (R31.9) Active confirmed Problem Cystitis (90840912) Cystitis (N30.90) Active confirmed Plan Of Treatment Pending Test Test Name Order Date UA Without Micro-Auto [id number] 01/17/2023 Future Test Test Name Order Date Abdomen [id number] 01/17/2023 Insurance Providers Payer Name Payer Address Payer Phone Subscriber Number Group Number Insured Name Patient Relationship to Insured Coverage Start Date Coverage End Date [place] Medicaid [address] [place], [place] [id number] Santiago Sandoval Self - patient is the insured Medical (General) History Medical History History ICD Code chicken pox pneumonia heart disease arthritis anemia bladder infections migraine headache diabetes cancer hernia back trouble low blood pressure hemorrhoids hives or eczema Stroke Surgical History Surgery Date(Month/Year) 1996 Gallbladder 1996 DNC, ENC, Total Hysterectomy 2001 Nerves Deadend 2022 Hospitalization History Reason Date(Month/Year) Cellulitis 2020 Kidney Stones 2021
--- OUTSIDE RECORDS SUMMARY | 2025-01-24 11:24 | XMS_ITS | Encounter Summary ---
Author Organization [facility] Address [address] [place] [address] Care Team Providers Care Line Maintenance Supervisor Name Role Phone Laney Smith MD Primary Care Provider +1- [phone] Encounter Details Date Type Department Care Team (Latest Contact Info) Description 12/01/2001 Outpatient Historical [facility] Parth Rashid MD [address] [place] [address] SOMATIC DYSFUNCTION NEC (Primary Dx); LUMBAGO; ESOPHAGEAL REFLUX; STOMACH FUNCTION DIS NEC Social History Tobacco Use Types Packs/Day Years Used Date Smoking Tobacco: Never Assessed Comments Unknown Sex and Gender Information Value Date Recorded Sex Assigned at Not on file Legal Sex Female 5:57 AM 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
--- OUTSIDE RECORDS SUMMARY | 2025-01-24 11:24 | XMS_ITS | Encounter Summary ---
Author Organization [facility] Address [address] [place] [address] Phone Care Team Providers Care Family Engagement Specialist Name Role Phone Laney Smith MD Primary Care Provider [phone] Encounter Details Date Type Department Care Team (Late st Contact Info) Description 07/17/2019 Orders Only [facility] [address] [place] [address] Kelly Lugo NP Renal stone Social History Tobacco Use Types [...] as of this encounter Visit Diagnoses Diagnosis Renal stone documented in this encounter Care Teams Family Engagement Specialist Relationship Specialty Start Date End Date Laney Smith MD [address] [place] [address] PCP - General Internal Medicine 07/31/18 documented as of this encounter
--- OUTSIDE RECORDS SUMMARY | 2025-01-24 11:24 | XMS_ITS | Encounter Summary ---
Author Organization [facility] Address [address] [place] [address] Care Team Providers Care Cardiovascular Lab Director Name Role Phone Laney Smith MD Primary Care Provider +1- [phone] Encounter Details Date Type Department Care Team (Latest Contact Info) Description 01/14/2007 Outpatient Historical [facility] Imaging Services-[facility] [place] [address] [place] [address] Jad West MD NO ADDRESS ON FILE Chronic Rhinitis (Primary Dx) Social History Tobacco Use Types Packs/Day Years Used Date Smoking Tobacco: Never Assessed Comments Unknown Sex and Gender Information Value Date Recorded Sex Assigned at Not on file 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
--- OUTSIDE RECORDS SUMMARY | 2025-01-24 11:24 | XMS_ITS | Encounter Summary ---
Author Organization [facility] Address [address] [place] [address] Care Team Providers Care Assistant Professor Of Geography Name Role Phone Laney Smith MD Primary Care Provider +1- [phone] Encounter Details Date Type Department Care Team (Latest Contact Info) Description 02/12/2000 Outpatient Historical [facility] Parth Rashid MD [address] [place] [address] Anemia, unspecified (Primary Dx) Social History Tobacco Use Types Packs/Day Years Used Date Smoking Tobacco: Never Assessed Comments Unknown Sex and Gender Information Value Date Recorded Sex Assigned at Not on file Legal Sex Female 5:57 AM PIGMENT PROCESSOR Gender Identity Not on file Sexual Orientation Not on file documented as of this encounter Plan of Treatment Not on file documented as of this encounter Visit Diagnoses Diagnosis Anemia, unspecified- Primary documented in this encounter Care Teams Assistant Professor Of Geography Relationship Specialty Start Date End Date Laney Smith MD [address] [place] [address] PCP - General Internal Medicine 12/29/18 documented as of this encounter
--- OUTSIDE RECORDS SUMMARY | 2025-01-24 11:24 | XMS_ITS | Encounter Summary ---
Author Organization [facility] Address [address] [place] [address] Care Team Providers Care Pie Chef Name Role Phone Laney Smith MD Primary Care Provider +1- [phone] Encounter Details Date Type Department Care Team (Latest Contact Info) Description 07/04/2006 Outpatient Historical [facility], Nose [facility] Thro[facility] [address] [place] [address] [place] [address] Gina Villareal, MS ACCESS DATABASE DEVELOPER [address] [place] [address] Sensorineural Hearing Loss, Asymmetrical (Primary Dx); Unspecified Otitis Media; Allergic Rhinitis, Cause Unspecified; Unspecified Sinusitis (Chronic) Social History Tobacco Use Types Packs/Day Years Used Date Smoking Tobacco: Never Assessed Comments Unknown Sex and Gender Information Value Date Recorded Sex Assigned at Not on file Legal Sex Female 5:57 AM MENU PLANNER Gender Identity Not on file Sexual Orientation Not on file documented as of this encounter Plan of Treatment Not on file documented as of this encounter Visit Diagnoses Diagnosis Sensorineural hearing loss, asymmetrical- Primary Unspecified otitis media Allergic rhinitis, cause unspecified Unspecified sinusitis (chronic) documented in this encounter Care Teams Pie Chef Relationship Specialty Start Date End Date Laney Smith MD [address] [place], [place] [address] PCP - General Internal Medicine 12/29/18 documented as of this encounter
--- OUTSIDE RECORDS SUMMARY | 2025-01-24 11:24 | XMS_ITS | Encounter Summary ---
Author Organization [facility] Address [address] [place] [address] Care Team Providers Care Packaging Design Engineer Name Role Phone Laney Smith MD Primary Care Provider +1- [phone] Encounter Details Date Type Department Care Team (Latest Contact Info) Description 08/13/2006 Outpatient Historical [facility] Ear, Nose and Throat [address] [place] [address] [place] [address] Frank Wilson MD [address] [place] [address] Dysfunct Eustachian Tube (Primary Dx); Other and Unspecified Chronic Nonsuppurative Otitis Media; Headache Social History Tobacco Use Types Packs/Day Years Used Date Smoking Tobacco: Never Assessed Comments Unknown Sex and Gender Information Value Date Recorded Sex Assigned at Not on file Legal Sex Female 5:57 AM HEARING INSTRUMENT SPECIALIST Gender Identity Not on file Sexual Orientation Not on file documented as of this encounter Plan of Treatment Not on file documented as of this encounter Visit Diagnoses Diagnosis Dysfunct eustachian tube- Primary Dysfunction of Eustachian tube Other and unspecified chronic nonsuppurative otitis media Headache(784.0) Headache documented in this encounter Care Teams Packaging Design Engineer Relationship Specialty Start Date End Date Laney Smith MD [address] [place] [id number] PCP - General Internal Medicine 12/29/18 documented as of this encounter
--- OUTSIDE RECORDS SUMMARY | 2025-01-24 11:24 | XMS_ITS | Encounter Summary ---
Author Organization [facility] Address [address] [place] [address] Care Team Providers Care System Analyst Name Role Phone Laney Smith MD Primary Care Provider +1- [phone] Encounter Details Date Type Department Care Team (Latest Contact Info) Description 02/05/2007 Outpatient Historical [facility] Ear, Nose and Throat [address] [place] [id number] Gina Villareal, SCALLOP BINDER [address] [place] [address] Follow-Up Examination, Following Unspecified Surgery (Primary Dx) Social History Tobacco Use Types Packs/Day Years Used Date Smoking Tobacco: Never Assessed Comments Unknown Sex and Gender Information Value Date Recorded Sex Assigned at Not on file Legal Sex Female 5:57 AM CENTER MGR Gender Identity Not on file Sexual Orientation Not on file documented as of this encounter Plan of Treatment Not on file documented as of this encounter Visit Diagnoses Diagnosis Follow-up examination, following unspecified surgery- Primary documented in this encounter Care Teams System Analyst Relationship Specialty Start Date End Date Laney Smith MD [address] [place] [address] PCP - General Internal Medicine 12/29/18 documented as of this encounter
--- OUTSIDE RECORDS SUMMARY | 2025-01-24 11:24 | XMS_ITS | Encounter Summary ---
Author Organization [facility] Address [address] [place] [address] Care Team Providers Care Equine Pharmacology Technician Name Role Phone Laney Smith MD Primary Care Provider +1- [phone] Encounter Details Date Type Department Care Team (Latest Contact Info) Description 01/28/2007 Outpatient Historical [facility] Operating Room [address] [place] [address] Jad West MD NO ADDRESS ON FILE Hypertrophy of Nasal Turbinates (Primary Dx) Social History Tobacco Use Types Packs/Day Years Used Date Smoking Tobacco: Never Assessed Comments Unknown Sex and Gender Information Value Date Recorded Sex Assigned at Not on file Legal Sex Female 5:57 AM CONSUMER ADVOCATE Gender Identity Not on file Sexual Orientation Not on file documented as of this encounter Plan of Treatment Not on file documented as of this encounter Procedures Procedure Name Priority Date/Time Associated Diagnosis Comments CBC WITH DIFFERENTIAL Routine 01/28/2007 7:35 AM CDT BASIC METABOLIC PANEL Routine 01/28/2007 7:35 AM CDT documented in this encounter Results * BASIC METABOLIC PANEL (01/28/2007 7:35 AM CDT) GLUCOSE 109 70 - 110 mg/dL INTERFACE SYSTEM BUN 8 7 - 17 mg/dL INTERFACE SYSTEM CREATININE 0.9 0.7 - 1.2 mg/dL INTERFACE SYSTEM SODIUM 142 136 - 145 mEq/L INTERFACE SYSTEM POTASSIUM 3.7 3.5 - 5.0 mEq/L INTERFACE SYSTEM CHLORIDE 104 95 - 110 mEq/L INTERFACE SYSTEM CO2 31 22 - 32 mmol/l INTERFACE SYSTEM CALCIUM 9.4 8.4 - 10.5 mg/dL INTERFACE SYSTEM ANION GAP 11 9 - 20 mEq/L INTERFACE SYSTEM OSMOLALITY, CALCULATED 290 275 - 295 mOsm/Kg INTERFACE SYSTEM 01/28/2007 7:35 AM CDT Jad West MD CHEMISTRY ORDERABLES Edited INTERFACE SYSTEM Refer to clinic/hospital department * (ABNORMAL) CBC WITH DIFFERENTIAL (01/28/2007 7:35 AM CDT) WBC 5.4 4.5 - 11.0 K/ul INTERFACE SYSTEM RBC 4.93 4.20 - 5.40 Mil/ul INTERFACE SYSTEM HEMOGLOBIN 13.4 12.0 - 16.0 g/dL INTERFACE SYSTEM HEMATOCRIT 41.3 36.0 - 46.0 % INTERFACE SYSTEM MCV 83.8(L) 84.0 - 103.0 Fl INTERFACE SYSTEM MCH 27.2 27.0 - 34.0 pg INTERFACE SYSTEM MCHC 32.4 30.0 - 35.0 g/dL INTERFACE SYSTEM RDW 14.0 11.0 - 14.5 % INTERFACE SYSTEM PLATELETS 179 140 - 440 K/ul INTERFACE SYSTEM MPV 9.8 8.9 - 12.8 Fl INTERFACE SYSTEM NEUTROPHILS 50.9 42.2 - 75.2 % INTERFACE SYSTEM LYMPHOCYTES 40.0 24.0 - 44.0 % INTERFACE SYSTEM MONOCYTES 5.4 2.0 - 10.0 % INTERFACE SYSTEM EOSINOPHILS 2.8 0.0 - 7.0 % INTERFACE SYSTEM BASOPHILS 0.9 0.0 - 1.0 % INTERFACE SYSTEM NEUTROPHIL ABSOLUTE 2.8 2.0 - 8.0 K/ul INTERFACE SYSTEM LYMPHOCYTE ABSOLUTE 2.2 1.2 - 4.0 K/ul INTERFACE SYSTEM MONOCYTE ABSOLUTE 0.3 0.1 - 0.6 K/ul INTERFACE SYSTEM EOSINOPHIL ABSOLUTE 0.2 0.0 - 0.7 K/ul INTERFACE SYSTEM BASOPHILS ABSOLUTE 0.1 0.0 - 0.2 K/ul INTERFACE SYSTEM 01/28/2007 7:35 AM CDT us Jad West MD HEMATOLOGY ORDERABLES Edited INTERFACE SYSTEM Refer to clinic/hospital department documented in this encounter Visit Diagnoses Diagnosis Hypertrophy of nasal turbinates- Primary documented in this encounter Care Teams Equine Pharmacology Technician Relationship Specialty Start Date End Date Laney Smith MD [address] [place], [place] [address] PCP - General Internal Medicine 12/29/18 documented as of this encounter
--- OUTSIDE RECORDS SUMMARY | 2025-01-24 11:24 | XMS_ITS | Encounter Summary ---
Author Organization [facility] Address [address] [place] [address] Care Team Providers Care Credit Risk Officer Name Role Phone Laney Smith MD Primary Care Provider +1- [phone] Encounter Details Date Type Department Care Team (Latest Contact Info) Description 01/01/2000 Outpatient Historical [facility] Parth Rashid MD [address] [place] [address] Dyspepsia and other specified disorders of function of stomach (Primary Dx); Unspecified hypothyroidism; Irritable bowel syndrome Social History Tobacco Use Types Packs/Day Years Used Date Smoking Tobacco: Never Assessed Comments Unknown Sex and Gender Information Value Date Recorded Sex Assigned at Not on file Legal Sex Female 5:57 AM PILOT 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
--- OUTSIDE RECORDS SUMMARY | 2025-01-24 11:24 | XMS_ITS | Encounter Summary ---
Author Organization [facility] Address [address] [place] [address] Care Team Providers Care Drill Press Operator Helper Name Role Phone Laney Smith MD Primary Care Provider +1- [phone] Encounter Details Date Type Department Care Team (Latest Contact Info) Description 04/04/2000 Outpatient Historical [facility] Parth Rashid MD [address] [place] [address] Lumbago (Primary Dx); Urinary frequency Social History Tobacco Use Types Packs/Day Years Used Date Smoking Tobacco: Never Assessed Comments Unknown Sex and Gender Information Value Date Recorded Sex Assigned at Not on file Legal Sex Female 5:57 AM SCREEN OPERATOR Gender Identity Not on file Sexual Orientation Not on file documented as of this encounter Plan of Treatment Not on file documented as of this encounter Visit Diagnoses Diagnosis Lumbago- Primary Urinary frequency documented in this encounter Care Teams Drill Press Operator Helper Relationship Specialty Start Date End Date Laney Smith MD [address] [place] [address] PCP - General Internal Medicine 12/29/18 documented as of this encounter
--- OUTSIDE RECORDS SUMMARY | 2025-01-24 11:24 | XMS_ITS | Encounter Summary ---
Author Organization [facility] Address [address] [place] [address] Care Team Providers Care Ceramic Worker Name Role Phone Laney Smith MD Primary Care Provider +1- [phone] Encounter Details Date Type Department Care Team (Latest Contact Info) Description 11/22/2000 Outpatient Historical [facility] Parth Rashid MD [address] [place] [address] Fissure of nipple (Primary Dx) Social History Tobacco Use Types Packs/Day Years Used Date Smoking Tobacco: Never Assessed Comments Unknown Sex and Gender Information Value Date Recorded Sex Assigned at Not on file Legal Sex Female 5:57 AM SOCIAL SCIENCE ANALYST Gender Identity Not on file Sexual Orientation Not on file documented as of this encounter Plan of Treatment Not on file documented as of this encounter Visit Diagnoses Diagnosis Fissure of nipple- Primary documented in this encounter Care Teams Ceramic Worker Relationship Specialty Start Date End Date Laney Smith MD [address] [place] [address] PCP - General Internal Medicine 12/29/18 documented as of this encounter
--- OUTSIDE RECORDS SUMMARY | 2025-01-24 11:24 | XMS_ITS | Encounter Summary ---
Author Organization [facility] Address [address] [place] [address] Care Team Providers Care Commercial Real Estate Underwriter Name Role Phone Laney Smith MD Primary Care Provider +1- [phone] Encounter Details Date Type Department Care Team (Latest Contact Info) Description 01/29/2000 Outpatient Historical [facility] Parth Rashid MD [address] [place] [id number] Nonallopathic lesion of thoracic region, not elsewhere classified (Primary Dx); Nonallopathic lesion of lumbar region, not elsewhere classified; Encounter for long-term (current) use of other medications Social History Tobacco Use Types Packs/Day Years Used Date Smoking Tobacco: Never Assessed Comments Unknown Sex and Gender Information Value Date Recorded Sex Assigned at Not on file Legal Sex Female 5:57 AM SALES 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 Gender Identity Not on file Sexual Orientation Not on file documented as of this encounter Plan of Treatment Not on file documented as of this encounter Visit Diagnoses Diagnosis Nonallopathic lesion of thoracic region, not elsewhere classified- Primary Nonallopathic lesion of lumbar region, not elsewhere classified Encounter for long-term (current) use of other medications documented in this encounter Care Teams Commercial Real Estate Underwriter Relationship Specialty Start Date End Date Laney Smith MD [address] [place] [address] PCP - General Internal Medicine 12/29/18 documented as of this encounter
--- OUTSIDE RECORDS SUMMARY | 2025-01-24 11:24 | XMS_ITS | Encounter Summary ---
Author Organization [facility] Address [address] [place] [address] Care Team Providers Care Cryptologist Name Role Phone Laney Smith MD Primary Care Provider +1- [phone] Encounter Details Date Type Department Care Team (Latest Contact Info) Description 2000 Outpatient Historical [facility] Parth Rashid MD [address] [place] [address] Nonallopathic lesion of abdomen and other sites, not elsewhere classified (Primary Dx); Allergic rhinitis, cause unspecified Social History Tobacco Use Types Packs/Day Years Used Date Smoking Tobacco: Never Assessed Comments Unknown Sex and Gender Information Value Date Recorded Sex Assigned at Not on file Legal 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
--- OUTSIDE RECORDS SUMMARY | 2025-01-24 11:24 | XMS_ITS | Encounter Summary ---
Author Organization [facility] Address [address] [place] [address] Care Team Providers Care Patient Assessment Coordinator Name Role Phone Laney Smith MD Primary Care Provider +1- [phone] Encounter Details Date Type Department Care Team (Late st Contact Info) Description 08/13/2006 Outpatient Historical [facility] 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
--- OUTSIDE RECORDS SUMMARY | 2025-01-24 11:24 | XMS_ITS | Encounter Summary ---
Author Organization [facility] Address [address] [place] [address] Care Team Providers Care Restaurant Supervisor Name Role Phone Laney Smith MD Primary Care Provider +1- [phone] Encounter Details Date Type Department Care Team (Latest Contact Info) Description 02/07/2001 Outpatient Historical [facility] Parth Rashid MD [address] [place] [address] Bronchitis, not specified as acute or chronic (Primary Dx); Acute sinusitis, unspecified Social History Tobacco Use Types Packs/Day Years Used Date Smoking Tobacco: Never Assessed Comments Unknown Sex and Gender Information Value Date Recorded Sex Assigned at Not on file 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
--- OUTSIDE RECORDS SUMMARY | 2025-01-24 11:24 | XMS_ITS | Patient Health Record ---
Author Organization [facility] Address [address] [place], [place] [id number] Care Team Providers Care Animal Trapper Name Role Phone Sarah GRAY, Laney Primary Care Provider Unavailab sabrina Haddad MD, Chris Unavailable [phone] White ELECTRO OPTICS ENGINEER, Alyson Unavailable Unavailable Allergies Allergen (clinical drug ingredient) Drug/Non Drug Allergy documented on EMR Reaction Allergy Type Onset Date Status Latex latex (uncoded) Unknown Allergy Acti ve sulfa (uncoded) hives Allergy Acti ve ciprofloxacin Cipro GI upset Drug Allergy Act kamila Levaquin Unknown Drug Allergy Active metoprolol metoprolol hives Drug Allergy Activ e morphine morphine headache Drug Allergy Active rosuvastatin Crestor Unknown Drug Allergy Acti ve penicillin rash Drug Allergy Active Reason For Referral Reason Evaluation for possi ble interventional spine treatment Diagnosis 1 Vertebrogenic low ba ck pain (M54.51) Diagnosis 2 Spondylosis without myelopathy or radiculopathy, lumbar region (M47.816) Diagnosis 3 Sacroiliitis, not el sewhere classified (M46.1) Diagnosis 4 Intervertebral disc disorders with radiculopathy, lumbar region (M51.16) Referral Organization [facility] Referring Provider First Name Chris Referring Provider Last Name Catie Referring Provider Speciality Pain Manag ement Referred Provider Salvador Ramsey Referred Provider Specialty Pain Managem ent General Notes Hannah Dawkins 12/2024 04:52:29 PM >Faxed today. Referral Priority Routine Referral Appointment Date 01/06/2025 Medications Medication SIG (Take, Route, Frequency, Duration) Notes Start Date End Date Status Acidophilus - 1 cap(s) orally once a day; Duration: 30 day(s) Active Metoprolol Tartrate 25 mg 1/2 tab(s) ora lly 2 times a day; Duration: 30 days 04/09/2023 Active levothyroxine 100 mcg (0.1 mg) 1 tab(s) orally once a day Active allopurinol 300 mg 1 tab(s) orally once a day; Duration: 30 day(s) Active omeprazole 20 mg 1 cap(s) orally 2 ti mes a day Active acyclovir 400 mg 1 tab(s) orally 2 ti mes a day Active NovoLOG FlexPen 100 units/mL as directed subcutaneously Active gabapentin 300 mg 2 caps po orally Q8H Active folic acid 0.8 mg 1 tab(s) orally once a day; Duration: 30 day(s) Active venlafaxine 75 mg 1 cap(s) orally once a day Active levocetirizine 5 mg 1 tab(s) orally once a day in addition to cetirizine Active hydroCHLOROthiazide 25 mg 1/2 tab(s) ora lly once a day; Duration: 30 days Active spironolactone 100 mg 1 tab(s) orally on ce a day; Duration: 30 day(s) Active docusate sodium 100 mg 3 cap(s) orally o nce a day Active venlafaxine 150 mg 1 cap(s) orally once a day Active cetirizine 10 mg 1 tab(s) orally once a day Active tamsulosin 0.4 mg 1 cap(s) orally 2 ti mes a day Active aspirin 81 mg 1 tab(s) orally once a day; Duration: 30 day(s) Active Social History Tobacco Use: Social History Observation Description Date Details (start date - stop date) Never Smoker NA - NA Tobacco use: Question Answer Notes : nonsmoker AUDIT-C (Standard) Question Answer Notes Did you have a drink containing alcohol in the p ast year? No Points 0 Interpretation Negative Problems Problem Type SNOMED Code ICD Code Onset Dates Problem Status W/U Status Risk Notes Problem Solitary sacroiliitis (197977782) Sacroiliitis, not elsewhere classified (M46.1) Active confirmed Problem Lumbosacral spondylosis without myelopathy (38436444) Spondylosis without myelopathy or radiculopathy, lumbar region (M47.816) Active confirmed Problem Anxiety disorder (250916270) Other specified anxiety disorders (F41.8) Active confirmed Problem Obstructive sleep apnea syndrome (disorder) (69943995) Obstructive sleep apnea (adult) (pediatric) (G47.33) Active confirmed Problem Arthralgia of the pelvic region and thigh (581547505) Pain in unspecified hip (M25.559) Active confirmed Problem Radiculopathy due to lumbar intervertebral disc disorder (594128800222615) Intervertebral disc disorders with radiculopathy, lumbar region (M51.16) Active confirmed Problem Lumbar radiculopathy (335437577) Radiculopathy, lumbar region (M54.16) Active confirmed Problem Other long term care pharmacist (current) drug therapy (Z79.899) Active confirmed Problem Pain in lumbar spine (886474181) Vertebrogenic low back pain (M54.51) Active confirmed Vital Signs Temperature 97.0 degrees Fahrenheit 09/03/2024 Blood pressure diastolic 71 mm Hg 09/03/2024 Oximetry 98 % 09/03/2024 Height 65.5 in 09/03/2024 Blood pressure systolic 118 mm Hg 09/03/2024 Weight 324.6 lbs 09/03/2024 BMI 53.19 kg/m2 09/03/2024 Encounters Encounter Location Date Provider Diagnosis [facility], [facility] [address] [place] [id number] 04/22/2024 hCris Haddad Other specified anxiety disorders F41.8 ; Spondylosis without myelopathy or radiculopathy, lumbar region M47.816 ; Sacroiliitis, not elsewhere classified M46.1 ; Vertebrogenic low back pain M54.51 and Other long term care pharmacist (current) drug therapy Z79.899 [facility] [address] [address] 07/20/2024 Chris Haddad Spondylosis without myelopathy or radiculopathy, lumbar region M47.816 and Other specified anxiety disorders F41.8 [facility], [facility] [address] [place] [id number] 09/03/2024 Chris Haddad Other specified anxiety disorders F41.8 ; Sacroiliitis, not elsewhere classified M46.1 ; Spondylosis without myelopathy or radiculopathy, lumbar region M47.816 ; Vertebrogenic low back pain M54.51 and Other long term care pharmacist (current) drug therapy Z79.899 [facility] [address] [place] [address] 09/28/2024 Chris Haddad Sacroiliitis, not elsewhere classified M46.1 and Other specified anxiety disorders F41.8 [facility], [facility] [address] [place], [place] [id number] 08/03/2024 Chris Haddad [facility], [facility] [address] [place], [place] [id number] 10/12/2024 Chris Haddad Assessments Encounter Date Diagnosis (ICD Code) Assessment Notes Treatment Notes Treatment Clinical Notes Section Notes 09/28/2024 Sacroiliitis, not elsewhere classified (ICD-10 - M46.1) Plan bilateral SI joint local anesthetic / steroid injection. 09/03/2024 Sacroiliitis, not elsewhere classified (ICD-10 - M46.1) Plan bilateral SI joint steroid injections with local anesthesia added. Consider sacral RFA procedure if diagnostic block efficacy appreciated along with no significant steroid benefit. Risks, benefits, and alternatives reviewed with patient. Questions answered to the patient's reported satisfaction. Preparation for procedure reviewed with patient; printed instructions declined. 09/03/2024 Other specified anxiety disorders (ICD-10 - F41.8) Plan moderate IV sedation with midazolam as per patient request. 07/20/2024 Spondylosis without myelopathy or radiculopathy, lumbar region (ICD-10 - M47.816) Plan bilateral lumbar RFA of L4 medial branch and L5 dorsal ramus. 04/22/2024 Other specified anxiety disorders (ICD-10 - F41.8) Plan monitored anesthesia care. 04/22/2024 Spondylosis without myelopathy or radiculopathy, lumbar region (ICD-10 - M47.816) Prior lumbar RFA procedures x 2 with history of efficacy that have been greatly appreciated by patient for 10 months and 7 months, respectively, for lumbar axial pain and lower extremity (right hip) pain. The benefits from the most recent procedure waned 3 weeks ago. Plan bilateral L4 medial branch, bilateral L5 dorsal ramus RFA as a continuation of previously established care plan. Risks, benefits, and alternatives reviewed with patient. Questions answered to the patient's reported satisfaction. Preparation for procedure reviewed with patient; printed instructions declined. Patient instructed to continue her ASA. 07/20/2024 Other specified anxiety disorders (ICD-10 - F41.8) Plan monitored anesthesia care. 09/03/2024 Spondylosis without myelopathy or radiculopathy, lumbar region (ICD-10 - M47.816) Prior lumbar RFA procedures x 2 with history of efficacy that have been greatly appreciated by patient for 10 months and 7 months for lumbar axial pain and lower extremity (right hip) pain. The most recent RFA procedure, below, was bilateral L4 medial branch, bilateral L5 dorsal ramus: this procedure has worked very well as noted with maintained efficacy thus far for lower lumbar pain and right hip pain. 09/28/2024 Other specified anxiety disorders (ICD-10 - F41.8) Plan moderate IV sedation with midazolam. 04/22/2024 Sacroiliitis, not elsewhere classified (ICD-10 - M46.1) Bilateral sacral RFA procedure with maintained efficacy appreciated by patient. The benefits still include resolution of sacral axial pain and lower extremity pain, however, patient has current low lumbar and right hip pain for the last 3 weeks from resolution of prior low lumbar RFA procedure benefits. 09/03/2024 Vertebrogenic low back pain (ICD-10 - M54.51) Chronic axial lumbosacral spine pain. 04/22/2024 Vertebrogenic low back pain (ICD-10 - M54.51) Chronic axial lumbosacral spine pain. 09/03/2024 Other jail (current) drug therapy (ICD-10 - Z79.899) Patient was given a copy of the Treatment Agreement, signed by patient on 02/13/222022 opioid (OUD) risk tool score = 3. This places the patient in the high risk category. Patient has expressed no interest in opioid use for her pain. 04/22/2024 Other jail (current) drug therapy (ICD-10 - Z79.899) Patient was given a copy of the Treatment Agreement, signed by patient on 02/13/222022 opioid (OUD) risk tool score = 3. This places the patient in the high risk category. Patient has expressed no interest in opioid use for her pain. Plan Of Treatment No Information Insurance Providers Payer Name Payer Address Payer Phone Subscriber Number Group Number Insured Name Patient Relationship to Insured Coverage Start Date Coverage End Date [place] [employer] [address] [place] [id number] Santiago Sandoval Self - patient is the insured Medical (General) History Medical History History ICD Code Chronic pain Low back pain Lumbar spondylosis and disc disease Sacroiliitis GERD Hyperlipidemia Hypothyroidism / thyroid hormone supplem ention via Rx Cellulitis left leg Kidney stones Anxiety disorder Depression Migraines Urinary frequency Diabetes Neuropathy Rotator cuff tear, right Osteoporosis Rapid heart beat (patient reported) Antihypertensive medication use Skin lesions for years (dermatitis / pso riasis as per patient report) OCD Shingles Sleep apnea Obesity, morbid Surgical History Surgery Date(Month/Year) Tonsillectomy, performed at [facility] in [place], [place], 1991 section, performed at [facility], 1996 Cholecystectomy, performed at [facility], 1996 Hysterectomy, performed at [facility], 2001 Hospitalization History Reason Date(Month/Year) Kidney stones, treated at [facility], 2017 Child , 1996, 1998, 2001 Cellulitis, treated at [facility] in [place], [place]
--- OUTSIDE RECORDS SUMMARY | 2025-01-24 11:24 | XMS_ITS | Encounter Summary ---
Author Organization [facility] Address [address] [place] [address] Care Team Providers Care Crown Presser Name Role Phone Laney Smith MD Primary Care Provider +1- [phone] Encounter Details Date Type Department Care Team (Latest Contact Info) Description 03/24/2002 Outpatient Historical [facility] Parth Rashid MD [address] [place] [id number] ANEMIA NOS (Primary Dx); HYPERLIPIDEMIA NEC/NOS; VACCINE FOR INFLUENZA Social History Tobacco Use Types Packs/Day Years Used Date Smoking Tobacco: Never Assessed Comments Unknown Sex and Gender Information Value Date Recorded Sex Assigned at Not on file 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
--- OUTSIDE RECORDS SUMMARY | 2025-01-24 11:24 | XMS_ITS | Encounter Summary ---
Author Organization 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
--- OUTSIDE RECORDS SUMMARY | 2025-01-24 11:24 | XMS_ITS | Encounter Summary ---
Author Organization [facility] Address [address] [place] [address] Care Team Providers Care Supervisor Pipe Manufacture Name Role Phone Laney Smith MD Primary Care Provider +1- [phone] Encounter Details Date Type Department Care Team (Latest Contact Info) Description 01/26/2000 Outpatient Historical [facility] Catrachito Martini NO ADDRESS ON FILE Esophageal reflux (Primary Dx); Anemia, unspecified; Anxiety state, unspecified Social History Tobacco Use Types Packs/Day Years Used Date Smoking Tobacco: Never Assessed Comments Unknown Sex and Gender Information Value Date Recorded Sex Assigned at Not on file Legal 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
--- OUTSIDE RECORDS SUMMARY | 2025-01-24 11:24 | XMS_ITS | Encounter Summary ---
Author Organization [facility] Address [address] [place] [address] Care Team Providers Care Patient Day Coordinator Name Role Phone Laney Smith MD Primary Care Provider +1- [phone] Encounter Details Date Type Department Care Team (Latest Contact Info) Description 07/08/2002 Outpatient Historical [facility] Parth Rashid MD [address] [place] [phone] HYPERLIPIDEMIA NEC/NOS (Primary Dx); AFTERCARE SNF USE MEDICATN; HYPOTHYROIDISM NOS Social History Tobacco Use Types Packs/Day Years Used Date Smoking Tobacco: Never Assessed Comments Unknown Sex and Gender Information Value Date Recorded Sex Assigned at Not on file Legal Sex Female 5:57 AM OPERATIONS CLERK Gender Identity Not on file Sexual Orientation Not on file documented as of this encounter Plan of Treatment Not on file documented as of this encounter Visit Diagnoses Diagnosis Other and unspecified hyperlipidemia- Primary Encounter for long-term (current) use of other medications Unspecified hypothyroidism documented in this encounter Care Teams Patient Day Coordinator Relationship Specialty Start Date End Date Laney Smith MD [address] [place], [place] [address] PCP - General Internal Medicine 12/29/18 documented as of this encounter
--- OUTSIDE RECORDS SUMMARY | 2025-01-24 11:24 | XMS_ITS | Encounter Summary ---
Author Organization [facility] Address [address] [place] [address] Care Team Providers Care Web Site Developer Name Role Phone Laney Smith MD Primary Care Provider +1- [phone] Encounter Details Date Type Department Care Team (Late st Contact Info) Description 07/16/2002 Outpatient Historical [facility] Parth Rashid MD [address] [place] [address] Social History Tobacco Use Types Packs/Day Years Used Date Smoking Tobacco: Never Assessed Comments Unknown Sex and Gender Information Value Date Recorded Sex Assigned at Not on file Legal Sex Female 5:57 AM SHAKE PACKER Gender Identity Not on file Sexual Orientation Not on file documented as of this encounter Plan of Treatment Not on file documented as of this encounter Visit Diagnoses Not on filedocumented in this encounter Care Teams Web Site Developer Relationship Specialty Start Date End Date Laney Smith MD [address] [place] [address] PCP - General Internal Medicine 12/29/18 documented as of this encounter
--- OUTSIDE RECORDS SUMMARY | 2025-01-24 11:24 | XMS_ITS | Encounter Summary ---
Author Organization [facility] Address [address] [place] [address] Care Team Providers Care Storm Door Maker Name Role Phone Laney Smith MD Primary Care Provider [phone]- [phone] Encounter Details Date Type Department Care Team (Late st Contact Info) Description 07/23/2006 Outpatient Historical [facility] Ear, Nose and Throat 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
--- OUTSIDE RECORDS SUMMARY | 2025-01-24 11:24 | XMS_ITS | Encounter Summary ---
Author Organization [facility] Address [address] [place] [address] Care Team Providers Care Onsite Health Coach Name Role Phone Laney Smith MD Primary Care Provider +1- [phone] Encounter Details Date Type Department Care Team (Latest Contact Info) Description 12/04/1999 Outpatient Historical [facility] Patrh Rashid MD [address] [place] [address] Esophageal reflux (Primary Dx); Dyspepsia and other specified disorders of function of stomach; Dysuria; Unspecified hypothyroidism Social History Tobacco Use Types Packs/Day Years Used Date Smoking Tobacco: Never Assessed Comments Unknown Sex and Gender Information Value Date Recorded Sex Assigned at Not on file Legal Sex Female 5:57 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
--- OUTSIDE RECORDS SUMMARY | 2025-01-24 11:24 | XMS_ITS | Encounter Summary ---
Author Organization [facility] Address [address] [place] [address] Care Team Providers Care Cardiac Catheterization Technologist Name Role Phone Laney Smith MD Primary Care Provider +1- [phone] Encounter Details Date Type Department Care Team (Latest Contact Info) Description 01/14/2007 Outpatient Historical [facility] Ear, Nose and Throat 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 Gender Identity Not on file Sexual Orientation Not on file documented as of this encounter Plan of Treatment Not on file documented as of this encounter Procedures Procedure Name Priority Date/Time Associated Diagnosis Comments CT SINOSCOPY Routine 01/14/2007 8:46 AM CDT documented in this encounter Results * CT SINOSCOPY (01/14/2007 8:46 AM CDT) Anatomical Region Laterality Modality Head Other 01/14/2007 8:46 AM CDT Narrative 01/14/2007 8:[address] paranasal sinuses: Findings: The coronal images show a no mucosal thickening in the frontal air cells and ethmoid aircells are in the maxillary antra. Sphenoid air cells are clear. No air-fluid levels or bonedestruction are noted. Bony structures are intact. Impression: Unremarkable study. - Dictated By: Cody Rubio M.D. Electronically Signed By: Cody Rubio M.D. Date Signed: 01/14/07 Procedure Note 05/14/2009 CT paranasal sinuses: Findings: The coronal images show a no mucosal thickening in the frontal air cellsand ethmoid aircells are in the maxillary antra. Sphenoid air cells are clear. No air-fluid levels orbonedestruction are noted. Bony structures are intact. Impression: Unremarkable study. - Dictated By: Cody Rubio M.D. Electronically Signed By: Cody Rubio M.D. Date Signed: 01/14/[address] ORDERABLES Final Result documented in this encounter Visit Diagnoses Diagnosis Allergic rhinitis, cause unspecified- Primary Unspecified sinusitis (chronic) documented in this encounter Care Teams Cardiac Catheterization Technologist Relationship Specialty Start Date End Date Laney Smith MD [address] [place] [address] PCP - General Internal Medicine 12/29/18 documented as of this encounter
[2025-01-24 11:27] VITALS: BP 116/75; PULSE 86; TEMP 36.5; O2SAT 99
--- NOTE | 2025-01-24 11:46 | W.ED.EXTPRO ---
HPI - Extremity Problem General: Chief complaint: Extremity Problem,Nontraumatic Stated complaint: R leg swollen fever and hurting Time Seen by Provider: 01/24/25 11:37 History of Present Illness: 54-year-old female presents with erythema and redness to the right lower leg. Patient noticed it yesterday and has gotten a bit more red and warm and has a history of similar cellulitis on the left side. No fever or chills. Associated symptoms: Deny chest pain or fever(s) Related Data Home Medications ?Medication ?Instructions ?Recorded ?Confirmed allopurinol 300 mg tablet 300 mg PO BEDTIME 07/07/19 01/11/25 denosumab 60 mg/mL subcutaneous 60 mg SUBCUT .COMPLEX 07/07/19 01/11/25 syringe (Prolia) gabapentin 300 mg capsule 600 mg PO TID 07/07/19 01/11/25 insulin aspart U-100 100 unit/mL 50 unit SUBCUT BID 07/07/19 01/11/25 (3 mL) subcutaneous pen (Novolog FlexPen U-100 Insulin aspart) insulin lispro 100 unit/mL 15 unit SUBCUT TIDWM 07/07/19 01/11/25 subcutaneous solution (Humalog U-100 Insulin) levothyroxine 100 mcg tablet 100 mcg PO DAILY 07/07/19 01/11/25 (Synthroid) tamsulosin 0.4 mg capsule (Flomax) 0.4 mg PO BID 07/24/19 01/11/25 levocetirizine 5 mg tablet (Xyzal) 5 mg PO DAILY 12/09/19 01/11/25 albuterol sulfate 90 mcg/actuation 2 puff inhalation QID PRN 06/03/21 01/11/25 aerosol inhaler Shortness Of Breath cetirizine 10 mg tablet 10 mg PO DAILY PRN Allergy Symptoms 06/03/21 01/11/25 docusate sodium 100 mg capsule 300 mg PO BEDTIME 06/03/21 01/11/25 spironolactone 100 mg tablet 100 mg PO DAILY 06/03/21 01/11/25 aspirin 81 mg chewable tablet 81 mg PO DAILY 11/29/21 01/11/25 ibuprofen 200 mg tablet 200 mg PO Q6H PRN Pain 11/29/21 01/11/25 lactobacillus combination no.4 3 3,000 mmu cells PO DAILY 02/05/22 01/11/25 billion cell capsule (Probiotic) acyclovir 400 mg tablet 400 mg PO DAILY 05/31/22 01/11/25 naloxone 4 mg/actuation nasal 4 mg intranasal Q2M PRN 09/23/23 01/11/25 spray (Narcan) oversedation omeprazole magnesium 20 mg 20 mg PO DAILY 12/04/23 01/11/25 capsule,delayed release clindamycin phosphate 1 % lotion 1 applic topical BID PRN Rash 09/28/24 01/11/25 infliximab-abda 100 mg intravenous 100 mg IV .Q6WKS 09/28/24 01/11/25 solution (Renflexis) mupirocin 2 % topical ointment 1 applic topical BID PRN Rash 09/28/24 01/11/25 triamcinolone acetonide 0.1 % 1 applic topical DAILY PRN Rash 09/28/24 01/11/25 topical cream Previous Rx's ?Medication ?Instructions ?Recorded Diabetic Shoes with 3 inserts #1 ea 12/13/21 Diabetic Shoes with Inserts #1 ea 12/13/21 ASO to left #1 ea 09/11/22 hydrochlorothiazide 12.5 mg tablet 6.25 mg (1/2 x 12.5 mg) PO QAM 04/03/24 Blood Pressure #90 tabs 4E Diabetic shoes with 1 pair of #1 ea 05/18/24 custom molded accommodative orthotics blood-glucose sensor (Dexcom G6 #9 ea 09/14/24 Sensor device) pantoprazole 40 mg tablet,delayed 40 mg PO BID 30 days #60 tabs 09/24/24 release sucralfate 1 gram tablet (Carafate) 1 g PO BID 30 days #60 tabs 09/24/24 ivabradine 5 mg tablet (Corlanor) 5 mg PO BID #180 tabs 09/28/24 metoprolol tartrate 25 mg tablet 12.5 mg (1/2 x 25 mg) PO TID #135 09/28/24 tabs naproxen 250 mg tablet 250 mg PO BID #14 tabs 11/09/24 terbinafine HCl 250 mg tablet 250 mg PO DAILY #14 tabs 11/26/24 tirzepatide (weight loss) 2.5 2.5 mg (0.5 mL) SUBCUT Q7D #2 mL 12/29/24 mg/0.5 mL subcutaneous pen injector tirzepatide (weight loss) 7.5 7.5 mg (0.5 mL) SUBCUT Q7D 1 month 12/30/24 mg/0.5 mL subcutaneous pen #2.5 mL injector (Zepbound) venlafaxine 150 mg 150 mg PO DAILY #30 caps 01/01/25 capsule,extended release 24 hr venlafaxine 75 mg capsule,extended 75 mg PO BEDTIME #30 caps 01/01/25 release 24 hr cephalexin 500 mg capsule 500 mg PO Q6H 7 days #28 caps 01/24/25 Allergies Allergy/AdvReac Type Severity Reaction Status Date / Time hydromorphone Allergy Severe ADR-Headach Verified 01/24/25 11:34 e adhesive Allergy Intermediate ALGY-Bliste Verified 01/24/25 11:34 r lactose Allergy Mild sick to Verified 01/24/25 11:34 stomach amoxicillin (From Augmentin) Allergy vomiting/ra Verified 01/24/25 11:34 sh clavulanic acid (From Allergy vomiting/ra Verified 01/24/25 11:34 Augmentin) sh lactase (From Dairy Aid) Allergy sick to Verified 01/24/25 11:34 stomach latex Allergy rash Verified 01/24/25 11:34 Penicillins Allergy rash/vomiti Verified 01/24/25 11:34 ng Sulfa (Sulfonamide Allergy ADR-Heartbu Verified 01/24/25 11:34 Antibiotics) rn leflunomide AdvReac Intermediate HAIR LOSS Verified 01/24/25 11:34 rosuvastatin (From Crestor) AdvReac ADV-Weaknes Verified 01/24/25 11:34 s simvastatin (From Zocor) AdvReac ADV-Weaknes Verified 01/24/25 11:34 s Review of Systems Const: Denies: fever(s) or chills Card: Denies: chest pain or palpitations Resp: Denies: dyspnea or wheezing GI: Denies: abdominal pain, nausea or vomiting Musc: Denies: neck pain Skin/Breast: Reports: erythema PFSH ED PFSH: Medical History (Updated 01/24/25 @ 11:49 by Saeed Salomon DO) Essential hypertension Hypertriglyceridemia 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 Psychiatric care Yeast vaginitis Incomplete bladder emptying Opioid contract exists Renal calculi Facet arthropathy, lumbar Chronic low back pain Excoriation (skin-picking) disorder Major depressive disorder, recurrent severe without psychotic features Obstructive sleep apnea Dyslipidemia Hypertension Diabetes Hypothyroid Tachycardia Melanoma Surgical History History of colonoscopy History of esophagogastroduodenoscopy (EGD) History of removal of skin mole was cancerous and had clean margins Hx of section Hx of lithotripsy Hx of lumpectomy History of tonsillectomy and adenoidectomy History of cholecystectomy History of appendectomy H/O: hysterectomy Family History Grandmother Cancer LUNG CANCER Diabetes Heart disease Bleeding disorder Clotting disorder Lung disease Dementia Breast cancer maternal Grandfather Cancer PROSTATE CANCER Diabetes Chronic kidney disease (CKD) Dementia Father Diabetes Hypertension Mother Lung disease COPD Hypertension Denies family history of Suicide Stroke Social History Smoking and tobacco/nicotine status: never used tobacco/nicotine Alcohol intake: never Substance/Drug Use: never Physical Exam Const: COMMON NORMALS: no acute distress, patient oriented x3, no limitations and alert Resp: COMMON NORMALS: normal respiratory effort and clear to auscultation bilaterally AUSCULTATION: clear to auscultation bilaterally Cardio: COMMON NORMALS: regular rate and regular rhythm RATE: regular rate RHYTHM: regular rhythm Extremity: COMMON NORMALS: full ROM Neuro: COMMON NORMALS: patient oriented x3 SENSORIUM/ORIENTATION: Yes alert Skin: NARRATIVE SKIN EXAM: Mild cellulitis right lower extremity Course Vital Signs: Vital signs: Vital Signs Temperature 97.7 F 01/24/25 11:27 Pulse Rate 86 01/24/25 11:27 Blood Pressure 116/75 01/24/25 11:27 Pulse Oximetry 99 01/24/25 11:27 Oxygen Delivery Me thod Room Air 01/24/25 11:27 MDM - Extremity (Nontraumatic) Medical Decision Making Patient with what appears to be early cellulitis in addition to chronic venous stasis changes. She will be started on Keflex. Patient stable and discharged home No radiology studies performed this visit Discharge Plan Discharge Patient Disposition: Home Clinical Impression: Cellulitis of right lower extremity from knee to ankle Condition: Stable Prescriptions: New cephalexin 500 mg capsule 500 mg PO Q6H 7 Days Qty: 28 0RF No Action levothyroxine [Synthroid] 100 mcg tablet 100 mcg PO DAILY gabapentin 300 mg capsule 600 mg PO TID allopurinol 300 mg tablet 300 mg PO BEDTIME Novolog FlexPen U-100 Insulin 100 unit/mL (3 mL) insulin pen 50 unit SUBCUT BID insulin lispro [Humalog U-100 Insulin] 100 unit/mL solution 15 unit SUBCUT TIDWM Prolia 60 mg/mL syringe 60 mg SUBCUT .COMPLEX Rx Instructions: 60 mg SUBCUT every 6 months; tamsulosin [Flomax] 0.4 mg capsule 0.4 mg PO BID levocetirizine [Xyzal] 5 mg tablet 5 mg PO DAILY (DME) Diabetic Shoes with 3 inserts See Rx Instructions .Route .MEDSUPPLY Qty: 1 0RF Rx Instructions: As directed (DME) Diabetic Shoes with Inserts See Rx Instructions .Route .MEDSUPPLY Qty: 1 0RF Rx Instructions: As directed ibuprofen 200 mg tablet 200 mg PO Q6H PRN (Reason: Pain) aspirin 81 mg tablet,chewable 81 mg PO DAILY Probiotic 3 billion cell capsule 3,000 mmu cells PO DAILY Rx Instructions: administer with a meal omeprazole magnesium 20 mg capsule,delayed release(DR/EC) 20 mg PO DAILY hydrochlorothiazide 12.5 mg tablet 6.25 mg PO QAM Qty: 90 3RF mupirocin 2 % ointment 1 applic topical BID PRN (Reason: Rash) Rx Instructions: apply to affected areas twice daily triamcinolone acetonide 0.1 % cream 1 applic topical DAILY PRN (Reason: Rash) Rx Instructions: apply film to affected areas daily metoprolol tartrate 25 mg tablet 12.5 mg PO TID Qty: 135 3RF ivabradine [Corlanor] 5 mg tablet 5 mg PO BID Qty: 180 3RF Rx Instructions: must administer with a meal/food naproxen 250 mg tablet 250 mg PO BID Qty: 14 0RF (DME) ASO to left See Rx Instructions .Route .MEDSUPPLY Qty: 1 0RF Rx Instructions: As directed (DME) 4E Diabetic shoes with 1 pair of custom molded accommodative orthotics See Rx Instructions .Route .MEDSUPPLY Qty: 1 0RF Rx Instructions: As directed by [facility] pantoprazole 40 mg tablet,delayed release (DR/EC) 40 mg PO BID 30 Days Qty: 60 5RF sucralfate [Carafate] 1 gram tablet 1 g PO BID 30 Days Qty: 60 5RF terbinafine HCl 250 mg tablet 250 mg PO DAILY Qty: 14 0RF (DME) Dexcom G6 Sensor Device See Rx Instructions .ROUTE .COMPLEX Qty: 9 3RF Dose Instruction: CHANGE EVERY 10 DAYS Rx Instructions: CHANGE EVERY 10 DAYS tirzepatide (weight loss) 2.5 mg/0.5 mL pen injector 2.5 mg SUBCUT Q7D Qty: 2 1RF Zepbound 7.5 mg/0.5 mL pen injector 7.5 mg SUBCUT Q7D 30 Days Qty: 2.5 0RF venlafaxine 150 mg capsule,extended release 24hr 150 mg PO DAILY Qty: 30 2RF Rx Instructions: TAKE ONE CAPSULE BY MOUTH EVERY MORNING venlafaxine 75 mg capsule,extended release 24hr 75 mg PO BEDTIME Qty: 30 2RF Rx Instructions: TAKE ONE CAPSULE BY MOUTH EVERY EVENING cetirizine 10 mg Tablet 10 mg PO DAILY PRN (Reason: Allergy Symptoms) docusate sodium 100 mg capsule 300 mg PO BEDTIME albuterol sulfate 90 mcg/actuation Hfa Aerosol Inhaler 2 puff INHALATION QID PRN (Reason: Shortness Of Breath) spironolactone 100 mg Tablet 100 mg PO DAILY acyclovir 400 mg tablet 400 mg PO DAILY naloxone [Narcan] 4 mg/actuation spray,non-aerosol 4 mg intranasal Q2M PRN (Reason: oversedation) Rx Instructions: spray 1 dose into ONE nostril; alternate nostrils w each dose until help arrives Renflexis 100 mg Recon Soln 100 mg IV .Q6WKS clindamycin phosphate 1 % lotion 1 applic TOPICAL BID PRN (Reason: Rash) Discharge Orders: Discharge ED (Routine); Ordered 01/24/25 Ordered By: Saeed Salomon Referrals: Laney Smith MD [Primary Care Provider, Internal Medicine] Discharge Diet: Usual diet Discharge Activity: Resume usual activity Patient Instructions: Cellulitis (ED), Opioid Safety, Pain Management, Patient Portal & Eliza Instructions Activity Restrictions/Additional Instructions: Please follow-up with your primary care provider in the middle of next week. Please take antibiotics as prescribed. 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
[2025-01-24 11:59] VITALS: PULSE 80; O2SAT 100
== END 2025-01-24 12:00 | disposition home or self-care (01) ==
PROVIDERS: Emergency Provider Student in an Organized Health Care Education/Training Program; PCP Internal Medicine
DX: L03.115 Cellulitis of right lower limb (principal); Z79.4 Long term (current) use of insulin; Z79.82 Long term (current) use of aspirin; E78.5 Hyperlipidemia, unspecified; I10 Essential (primary) hypertension; E11.40 Type 2 diabetes mellitus with diabetic neuropathy, unspecified
CPT/HCPCS: 99283

== ENCOUNTER 2025-02-09 08:58 | Oncology outpatient (recurring) (ONCR) | payer MEDICAID, SELFPAY ==
[2025-02-09 10:05] LABS: Hematocrit 36.7 % (36-47); Hemoglobin 11.60 g/dL (11.27-16.99); Mean Corpuscular HGB Conc 31.6 g/dL (30-55); Mean Corpuscular Hemoglobin 25.8 pg (27-33); Mean Corpuscular Volume 81.6 fl (85-98); Nucleated Red Blood Cells % 0 %; Platelet Count 206 10^3/cmm (157-399); Red Blood Count 4.50 10^6/uL (3.85-5.65); White Blood Count 6.63 10^3/uL (3.29-11.43)
[2025-02-09] MEDS: methylPREDNISolone sod succ 40 mg/mL INJ 20 MG IVP (10:12)
[2025-02-09] MEDS: diphenhydrAMINE 50 mg/mL SDV 1mL 25 MG IVP (10:17)
[2025-02-09 10:28] LABS: Alanine Aminotransferase 17 U/L (0-33); Albumin Level 3.5 g/dL (3.5-5.2); Alkaline Phosphatase 87 U/L (35-105); Aspartate Amino Transferase 17 U/L (0-32); Creatinine Clr Calc Pharmacy 95.3910; Globulin 3.0 g/dL (1.3-4.6); Total Protein 6.5 g/dL (6.6-8.7)
[2025-02-09] MEDS: infliximab-abda 700 MG in sodium chloride 0.9% 250 ML 325 MG IV (10:53)
[2025-02-09 11:53] VITALS: BP 113/72; PULSE 82; TEMP 36.1; O2SAT 98
== END 2025-02-21 23:59 | disposition home or self-care (01) ==
PROVIDERS: Internal Medicine Rheumatology; PCP Internal Medicine; Visit Provider Internal Medicine Medical Oncology
DX: L40.50 Arthropathic psoriasis, unspecified (principal); Z79.899 Other long term (current) drug therapy
CPT/HCPCS: 80076; 82565; 85025; 85651; 86140; 96375; 96413; A4222; J1200; J2919; J7050; J9999; Q5104

== ENCOUNTER → 2025-02-10 09:02 | Outpatient (BNVA) | payer MEDICAID, SELFPAY | PROVIDERS: PCP Internal Medicine; Visit Provider Podiatrist Foot & Ankle Surgery | DX: G57.61 Lesion of plantar nerve, right lower limb (principal); E11.42 Type 2 diabetes mellitus with diabetic polyneuropathy; I73.9 Peripheral vascular disease, unspecified; M20.41 Other hammer toe(s) (acquired), right foot; M20.42 Other hammer toe(s) (acquired), left foot; M21.621 Bunionette of right foot; M21.622 Bunionette of left foot; M21.41 Flat foot [pes planus] (acquired), right foot; M21.42 Flat foot [pes planus] (acquired), left foot | CPT/HCPCS: 64455; 99213; J1100; J3301; J3490 ==

== ENCOUNTER 2025-03-23 08:53 | Oncology outpatient (recurring) (ONCR) | payer MEDICAID, SELFPAY ==
[2025-03-23 09:21] VITALS: BP 121/74; PULSE 80; TEMP 36.3; O2SAT 98
[2025-03-23] MEDS: diphenhydrAMINE 50 mg/mL SDV 1mL 25 MG IVP (09:43)
[2025-03-23] MEDS: methylPREDNISolone sod succ 40 mg/mL INJ 20 MG IVP (09:48)
[2025-03-23] MEDS: infliximab-abda 700 MG in sodium chloride 0.9% 250 ML 240 MG IV (10:24)
[2025-03-23 11:45] VITALS: BP 146/72; PULSE 84; RESP 18; TEMP 36.4; O2SAT 97
== END 2025-03-23 23:59 | disposition home or self-care (01) ==
PROVIDERS: PCP Internal Medicine; Visit Provider Internal Medicine Medical Oncology
DX: L40.50 Arthropathic psoriasis, unspecified (principal); Z79.899 Other long term (current) drug therapy
CPT/HCPCS: 96375; 96413; A4222; J1200; J2919; J7050; J9999; Q5104

== ENCOUNTER → 2025-04-08 14:04 | Outpatient (BNVA) | payer MEDICAID, SELFPAY | PROVIDERS: PCP Internal Medicine; Visit Provider Nurse Practitioner Family | DX: L73.2 Hidradenitis suppurativa (principal); L21.8 Other seborrheic dermatitis; L82.1 Other seborrheic keratosis; L98.1 Factitial dermatitis; L81.4 Other melanin hyperpigmentation; Z08 Encounter for follow-up examination after completed treatment for malignant neoplasm; Z85.820 Personal history of malignant melanoma of skin; L82.0 Inflamed seborrheic keratosis; R20.8 Other disturbances of skin sensation; L73.8 Other specified follicular disorders; L53.8 Other specified erythematous conditions | CPT/HCPCS: 17110; 99214 ==

== ENCOUNTER 2025-04-09 10:33 | Outpatient (CLI) | payer MEDICAID, SELFPAY ==
[2025-04-09 11:18] LABS: Estmated Average Glucose 134; Hemoglobin A1C 6.3 % (4.0-6.0)
[2025-04-09 11:50] LABS: Alanine Aminotransferase 22 U/L (0-33); Albumin Level 4.0 g/dL (3.5-5.2); Alkaline Phosphatase 83 U/L (35-105); Anion Gap 16.7 (5-19); Aspartate Amino Transferase 23 U/L (0-32); Blood Urea Nitrogen 9 mg/dL (6-20); Calcium 9.3 mg/dL (8.5-10.5); Carbon Dioxide 25 mmol/L (22-29); Chloride 101 mmol/L (98-107); Cholesterol 220 mg/dL (0-200); Globulin 3.5 g/dL (1.3-4.6); Glucose 111 mg/dL (65-115); HDL Cholesterol 50 mg/dL (60-100); Osmolality Calculated 287 mOsm/kg (285-295); Potassium 3.7 mmol/L (3.5-5.1); Sodium 139 mmol/L (136-145); Thyroid Stimulating Hormone 0.52 uIU/mL (0.27-4.20); Total Protein 7.5 g/dL (6.6-8.7); Triglycerides 205 mg/dL (0-150)
[2025-04-09 12:24] LABS: Free T4 Free Thyroxine 1.12 ng/dL (0.82-1.77)
[2025-04-09 17:17] LABS: Creatinine Urine, Random 114 mg/dL (28-217); Microalbum Creatinine Ratio Ur 9 mg/dL (0-20)
== END 2025-04-09 10:34 | disposition home or self-care (01) ==
LOC: LAB 10:36
PROVIDERS: PCP Internal Medicine; Visit Provider Internal Medicine
DX: E16.0 Drug-induced hypoglycemia without coma (principal); E11.42 Type 2 diabetes mellitus with diabetic polyneuropathy; E11.9 Type 2 diabetes mellitus without complications; E11.22 Type 2 diabetes mellitus with diabetic chronic kidney disease; N18.30 Chronic kidney disease, stage 3 unspecified; E78.2 Mixed hyperlipidemia; E03.9 Hypothyroidism, unspecified; E55.9 Vitamin D deficiency, unspecified; E66.01 Morbid (severe) obesity due to excess calories; Z68.42 Body mass index [BMI] 45.0-49.9, adult; T38.3X5A Adverse effect of insulin and oral hypoglycemic [antidiabetic] drugs, initial encounter; X58.XXXA Exposure to other specified factors, initial encounter
CPT/HCPCS: 36415; 80053; 80061; 82044; 82306; 83036; 84439; 84443

== ENCOUNTER → 2025-05-13 08:51 | Outpatient (BNVA) | payer MEDICAID, SELFPAY | PROVIDERS: PCP Internal Medicine; Visit Provider Podiatrist Foot & Ankle Surgery | DX: E11.42 Type 2 diabetes mellitus with diabetic polyneuropathy (principal); I73.9 Peripheral vascular disease, unspecified; M20.41 Other hammer toe(s) (acquired), right foot; M20.42 Other hammer toe(s) (acquired), left foot; M21.621 Bunionette of right foot; M21.622 Bunionette of left foot; M21.41 Flat foot [pes planus] (acquired), right foot; M21.42 Flat foot [pes planus] (acquired), left foot; G57.61 Lesion of plantar nerve, right lower limb; Z79.4 Long term (current) use of insulin | CPT/HCPCS: 99213 ==

== ENCOUNTER 2025-05-18 11:30 | Oncology outpatient (recurring) (ONCR) | payer MEDICAID, SELFPAY ==
[2025-05-18 12:30] LABS: Hematocrit 37.0 % (36-47); Hemoglobin 11.40 g/dL (11.27-16.99); Mean Corpuscular HGB Conc 30.8 g/dL (30-55); Mean Corpuscular Hemoglobin 25.2 pg (27-33); Mean Corpuscular Volume 81.7 fl (85-98); Nucleated Red Blood Cells % 0 %; Platelet Count 201 10^3/cmm (157-399); Red Blood Count 4.53 10^6/uL (3.85-5.65); White Blood Count 7.93 10^3/uL (3.29-11.43)
[2025-05-18] MEDS: diphenhydrAMINE 50 mg/mL SDV 1mL 25 MG IVP (12:32)
[2025-05-18] MEDS: methylPREDNISolone sod succ 40 mg/mL INJ 20 MG IVP (12:34)
[2025-05-18 12:55] LABS: Alanine Aminotransferase 18 U/L (0-33); Albumin Level 3.7 g/dL (3.5-5.2); Alkaline Phosphatase 75 U/L (35-105); Aspartate Amino Transferase 13 U/L (0-32); Globulin 3.0 g/dL (1.3-4.6); Total Protein 6.7 g/dL (6.6-8.7)
[2025-05-18] MEDS: infliximab-abda 700 MG in sodium chloride 0.9% 250 ML 300 MG IV (13:07)
[2025-05-18 14:44] VITALS: BP 107/68; PULSE 91; RESP 16; TEMP 36.3; O2SAT 98
== END 2025-05-23 23:59 | disposition home or self-care (01) ==
PROVIDERS: Internal Medicine Rheumatology; PCP Internal Medicine; Visit Provider Internal Medicine Medical Oncology
DX: L40.50 Arthropathic psoriasis, unspecified (principal); Z79.899 Other long term (current) drug therapy; L40.0 Psoriasis vulgaris
CPT/HCPCS: 80076; 82565; 85025; 85651; 86140; 96375; 96413; A4222; J1200; J2919; J7050; J9999; Q5104

== ENCOUNTER → 2025-05-25 10:38 | Outpatient (BNVA) | payer MEDICAID, SELFPAY | PROVIDERS: PCP Internal Medicine; Visit Provider Internal Medicine Rheumatology | DX: L40.50 Arthropathic psoriasis, unspecified (principal); L40.0 Psoriasis vulgaris; Z79.899 Other long term (current) drug therapy; Z71.85 Encounter for immunization safety counseling; M81.0 Age-related osteoporosis without current pathological fracture; M47.816 Spondylosis without myelopathy or radiculopathy, lumbar region; E11.9 Type 2 diabetes mellitus without complications | CPT/HCPCS: 99214 ==

== ENCOUNTER 2025-06-21 08:41 | Oncology outpatient (recurring) (ONCR) | payer MEDICAID, SELFPAY ==
[2025-06-21] MEDS: diphenhydrAMINE 50 mg/mL SDV 1mL 25 MG IVP (10:31)
[2025-06-21] MEDS: methylPREDNISolone sod succ 40 mg/mL INJ IVP (10:32)
[2025-06-21 11:30] VITALS: BP 108/67; PULSE 74; RESP 17; TEMP 35.9; O2SAT 94
[2025-06-21 12:03] VITALS: BP 109/69; PULSE 84; RESP 17; TEMP 35.8; O2SAT 97
[2025-06-21 14:25] VITALS: BP 124/74; PULSE 74; RESP 17; TEMP 36.4; O2SAT 96
[2025-06-21] MEDS: denosumab 60 mg SDV (Infusion Clinic Only) SUBCUT (14:35)
[2025-06-21 16:00] VITALS: BP 112/69; PULSE 82; RESP 17; TEMP 36; O2SAT 93
== END 2025-06-21 23:59 | disposition home or self-care (01) ==
PROVIDERS: PCP Internal Medicine; Visit Provider Internal Medicine Medical Oncology
DX: L40.50 Arthropathic psoriasis, unspecified (principal); Z79.899 Other long term (current) drug therapy; L40.0 Psoriasis vulgaris
CPT/HCPCS: 96372; 96375; 96413; 96415; J0897; J1200; J2919; J7050; J9999; Q5104